=== PATIENT | male | born 2000 | race Caucasian/White ===

== ENCOUNTER 2023-01-09 16:41 | Outpatient (OUT) | payer OTHER, MEDICAID, SELFPAY ==
--- NOTE | 2023-01-09 | XR_ITS ---
The [address] [address] Patient Name: JARVIS STAHL MRN: [id number] date: 2000 Sex: M Assigned Patient Location: [facility] Current Patient Location: Accession/Order Number: [id number] Exam Date: 01/09/2023 17:12 Report Date: 01/11/2023 07:59 At the request of: MARGARITA NEWMAN Procedure: XR ribs LT min 3V w CXR1V EXAMINATION: XR ribs LT min 3V w CXR1V HISTORY: M94.0 ACUTE COSTOCHONDRITIS ; left anterior chest/rib pain, no known injury COMPARISON: No relevant comparison available. FINDINGS: LUNGS: Left apical pneumothorax 3.6 cm in thickness. Lungs are clear bilaterally. PLEURA: No pneumothorax, effusion, or pleural thickening. MEDIASTINUM: No visible mass or adenopathy. CARDIAC: No cardiomegaly or cardiac silhouette abnormality. RIBS: Normal. No significant arthropathy or acute abnormality. OTHER: Negative. XR/XR ribs LT min 3V w CXR1V IMPRESSION: 1. Moderate size left pneumothorax. 2. No pulmonary infiltrates. 3. Normal ribs. The ordering provider is being contacted at this time. Ordering provider's office is currently closed and not accepting messages. They will be contacted as soon as they are open this morning. Provider is being paged. Findings discussed with Dr. Rodriguez via telephone at 7:52 AM. Electronically authenticated by: IASBELLE PERKINS Date: 01/11/2023 07:59
== END 2023-01-09 16:42 | disposition home or self-care (01) ==
PROVIDERS: PCP Family Medicine; Visit Provider Nurse Practitioner Family
DX: M94.0 Chondrocostal junction syndrome [Tietze] (principal); J93.9 Pneumothorax, unspecified
CPT/HCPCS: 71101

== ENCOUNTER 2023-01-11 09:21 | Inpatient (IN) | payer OTHER, MEDICAID, SELFPAY ==
[2023-01-11] VITALS (88 sets, daily range): BP systolic 116–149; BP diastolic 75–97; PULSE 63–99; RESP 12–39; TEMP 36.4–36.9; O2SAT 95–100; BMI 18.3; BMI 19.6
--- NOTE | 2023-01-11 | XR_ITS ---
The [address] [address] Patient Name: JARVIS STAHL MRN: [id number] date: 2000 Sex: M Assigned Patient Location: ER Current Patient Location: ER Accession/Order Number: [id number] Exam Date: 01/11/2023 14:25 Report Date: 01/11/2023 14:51 At the request of: ROSALVA FROST Procedure: XR chest 2V XR chest 2V, 01/11/2023 2:25 PM EDT, [place]001 INDICATION: Post chest tube placement on left COMPARISON: CT of the chest from earlier on the same day. TECHNIQUE: Frontal and lateral views of the chest obtained. FINDINGS: The right costophrenic angle is excluded on the frontal view. There has been placement of left-sided chest tube with its tip extending to the lung apex. There is no evidence of significant residual pneumothorax. The heart is normal in size. The aorta and mediastinum appear unremarkable. The pulmonary vasculature is normal. The lungs are clear. No pleural effusion is seen. The osseous structures appear intact. XR/XR chest 2V IMPRESSION: No significant residual pneumothorax status post placement of left sided chest tube. No active pulmonary process identified. Electronically authenticated by: LESLIE WRIGHT Date: 01/11/2023 14:51
--- NOTE | 2023-01-11 09:42 | PC.NURSE ---
No shortness of breath noted. Chest equal rise.
--- NOTE | 2023-01-11 09:47 | CT_ITS ---
The [address] [address] Patient Name: JARVIS STAHL MRN: [id number] date: 2000 Sex: M Assigned Patient Location: ER Current Patient Location: Accession/Order Number: [id number] Exam Date: 01/11/2023 10:18 Report Date: 01/11/2023 10:58 At the request of: ROSALVA FROST Procedure: CT chest wo con EXAMINATION: CT chest wo con HISTORY: pneumo COMPARISON: XR RIBS left 01/09/2023 TECHNIQUE: Multi-planar CT images were obtained without and/or with IV contrast as indicated by examination type. Axial, Coronal, and Sagittal images. Dose reduction techniques were achieved by using automated exposure control and/or adjustment of mA and/or kV according to patient size and/or use of iterative reconstruction technique. FINDINGS: LUNGS: No visible pulmonary disease, blebs, or bulla. PLEURA: Moderate-large left pneumothorax. VASCULATURE: No abnormality. IMTIAZ: No mass or adenopathy. MEDIASTINUM: No mass or adenopathy. CARDIAC: No enlargement, pericardial thickening, or significant calcification. AORTA: No aneurysm or dissection. CHEST WALL: No mass or axillary adenopathy. BONES: No bone lesion or fracture. LIMITED ABDOMEN: No suspicious findings Limited images of the upper abdomen. OTHER: Negative. CT/CT chest wo con IMPRESSION: 1. Moderate-large left pneumothorax of uncertain etiology. No appreciable blebs or bulla. No rib fracture or appreciable disruption of the bronchi. 2. Allowing for differences in technique, no appreciable significant change compared to 01/09/2023. Electronically authenticated by: ISABELLE PERKINS Date: 01/11/2023 10:58
--- NOTE | 2023-01-11 11:46 | ED_ITS ---
HPI - General Adult General Chief complaint: Shortness of Breath/Dyspnea Stated complaint: ABNORMAL RADIOLOGY FINDINGS Time Seen by Provider: 01/11/23 09:38 Source: patient Mode of arrival: walk-in Limitations: no limitations History of Present Illness HPI narrative: Patient is a 22-year-old male who is presenting to the Emergency Room for an abnormal outpatient x-ray that was done Saturday. Patient's been having left-sided chest pain since Saturday. Patient had seen his nurse practitioner in the office on Saturday, a outpatient x-ray was ordered. Patient had an x-ray around 5:00 Saturday afternoon. It was red and evaluated this morning by Dr. Colon. He was noted the patient had a moderate pneumothorax, and the information was given to his PCP this morning. The x-ray report documented that they had attempted to contact the ordering provider's office but they were closed, not taking messages. It appears that Dr. Colon was able to speak to Dr. Rodriguez this AM. Patient was then sent into the Emergency Room for evaluation. Patient's had no fall, no traumas, no other acute findings. Patient does not smoke. Patient has underlying autism. Patient was a home with his parents. Patient is working currently. Patient has left- sided chest pain, feels slightly short of breath. Patient feels the same as he has a steady, does not feel worse or better. No bowel pain, nausea, vomiting, or any other acute complaints. Related Data Home Medications Medication Instructions Recorded Confirmed prednisone 20 mg tablet 20 mg PO DAILY 01/11/23 01/11/23 triamcinolone acetonide 0.1 % 1 applic topical PRN skin 01/11/23 topical ointment Allergies Allergy/AdvReac Type Severity Reaction Status Date / Time latex AdvReac Rash Verified 01/11/23 09:34 [facility] Social History Smoking status: Never smoker Exam Constitutional Vital Signs, click to edit/add: Last Vital Signs Temp 97.9 F 01/11/23 15:45 Pulse 70 01/11/23 15:45 Resp 14 01/11/23 11:50 BP 127/79 01/11/23 15:00 Pulse Ox 100 01/11/23 15:45 O2 Del Method Nasal Cannula 01/11/23 15:45 O2 Flow Rate 2 01/11/23 15:45 Course Vital Signs Vital signs: Vital Signs Temperature 98.4 F 01/11/23 09:29 Pulse Rate 85 01/11/23 09:29 Respiratory Rate 16 01/11/23 09:29 Blood Pressure 148/86 H 01/11/23 09:29 Pulse Oximetry 99 01/11/23 09:29 Oxygen Delivery Method Room Air 01/11/23 09:29 Temperature 97.9 F 01/11/23 15:45 Pulse Rate 70 01/11/23 15:45 Respiratory Rate 14 01/11/23 11:50 Blood Pressure 127/79 01/11/23 15:00 Pulse Oximetry 100 01/11/23 15:45 Oxygen Delivery Method Nasal Cannula 01/11/23 15:45 Oxygen Delivery Flow Rate 2 01/11/23 15:45 Medical Decision Making MDM Narrative Medical decision making narrative: TECHNIQUE: Multi-planar CT images were obtained without and/or with IV contrast as indicated by examination type. Axial, Coronal, and Sagittal images. Dose reduction techniques were achieved by using automated exposure control and/or adjustment of mA and/or kV according to patient size and/or use of iterative reconstruction technique. FINDINGS: LUNGS: No visible pulmonary disease, blebs, or bulla. PLEURA: Moderate-large left pneumothorax. VASCULATURE: No abnormality. IMTIAZ: No mass or adenopathy. MEDIASTINUM: No mass or adenopathy. CARDIAC: No enlargement, pericardial thickening, or significant calcification. AORTA: No aneurysm or dissection. CHEST WALL: No mass or axillary adenopathy. BONES: No bone lesion or fracture. LIMITED ABDOMEN: No suspicious findings Limited images of the upper abdomen. OTHER: Negative. IMPRESSION: 1. Moderate-large left pneumothorax of uncertain etiology. No appreciable blebs or bulla. No rib fracture or appreciable disruption of the bronchi. 2. Allowing for differences in technique, no appreciable significant change compared to 01/09/2023. I spoken to Dr. Arzola, he was requesting a smaller chest tube to be placed to water suction. He will be in consultation, patient be admitted to Dr. Zhao. 1200 patient case was discussed with Dr. hZao, he'll be admitted to the intensive care unit. There is delay in place in his chest tube secondary to the Emergency Room volume, a few critical patients, and also I am the only provider in the Emergency Room at this time. Patient, mother and father have been updated on delays. Patient's had the pneumothorax all week. He's 100 percent on, hemodynamically stable, was nothing for pain or anxiety at this time, he is resting comfortably reading a book. They understand the delays oor thankful for the updates. Procedure note: conscious sedation and placement of chest tube for left pneumothorax. procedure note. Conscious sedation. Risks of airway compromise, respiratory depression, hemodynamic compromise were discussed. Verbal and written consent were obtained for the procedure sedation by the patient and placed in the chart. Respiratory staff was at bedside, along with Nursing staff. Airway equipment and resuscitation equipment were at bedside as well. Patient is a Mallampati 1, ASA class II. Patient was placed on waveform capnography. IV fluids were running. The patient was placed on IV, O2, CO2, and monitor, and pulse ox. Risk and benefits of procedure were gone over, paperwork was signed. Patient is aware of the risk of , disability, possible new fracture, neurovascular compromise, bleeding, infection, pain, unable to reduce the dislocation, unforeseen complications, respiratory difficulty or distress, airway compromise. Patient was premedicated with 50 mg of IV fentanyl. Patient was then given 15mg of etomidate. Patient had no airway compromise, no respiratory distress, no respiratory concerns throughout the procedure. Procedure note: left chest tube placement 24 Bulgarian Patient was cleaned, prepped, draped in normal sterile fashion. Patient was anesthetized With 15 mL of a combination of 1 percent lidocaine and 0.5 percent bupivacaine. Aspiration was done well. Patient was anesthetized, no blood was aspirated. Patient had a local anesthetic block done above ribs approximate 5-6. Patient was premedicated initially with 50 ?g of fentanyl IV. Patient was then given 50 mg of etomidate IV befor incision. Patient had a 1.5 cm Incision made. Patient had blunt dissection done with hemostats. Above rib Approximate 5, patient had a small puncture made into the pleura cavity. There was a finger sweep done, no lung tissue or any other Tissue in the pleural cavity was Palpated. The 24 Bulgarian chest tube was placed in a superior inferior fashion. Patient had a phan of air, no blood. 0 silk was used for closure. Incision was closed along with 0 silk tied around the chest tube as well. Vasoline gauze, dry dressing was placed. This was connected to the Thora-Seal. There was a short delay and appropriately hooking up the Thora-SEal. Patient never had a oxygen level lower than 93 percent. The initial chest x-ray to check tube placement showed worsening of the pneumothorax slightly, after the Thora-Seal was working correctly, patient had excellent expansion of the left lung. Patient has successful placement of the chest tube. Patient's procedure was discussed with Dr. Arzola. Patient's procedure was discussed with mother and father, there are thankful for help. Patient is having pain to left lateral chest wall where the chest tube was placed. I wore 2 sets of gloves, gloves were intact the entire procedure and removed intact. Critical care time 35 minutes exclusive from separate billable procedures that were performed. The following was considered in the determination of critical care but not limited to the level of medical decision making, intensive cardiac and/or respiratory monitoring, frequent vital sign monitoring, evaluation of laboratory studies, evaluation of radiographic studies, oxygen monitoring, and constant monitoring and speaking to family at bedside Discharge Plan Discharge Chief Complaint: Shortness of Breath/Dyspnea Clinical Impression: Pneumothorax, left Patient Disposition: Admitted As Inpatient Condition: Fair
--- NOTE | 2023-01-11 12:56 | PC.NURSE ---
This RN received this pt from Mary TIERNEY. Pt has a left pneumothorax and is awaiting a chest tube placement. Room prepared for procedure. Pay waiting for additional medical staff to come in before he starts the procedure as pt is stable at this time .
[2023-01-11] MEDS: FENTANYL CITRATE/PF 100 MCG/2 ML VIAL 50 MCG IV ×2 (13:50→14:07)
[2023-01-11] MEDS: LIDOCAINE HCL 1% 100 MG/10 ML MDV INJ (13:55)
[2023-01-11] MEDS: BUPIVACAINE HCL 0.5% PF 50 MG/10 ML VIAL INJ (13:55)
[2023-01-11] MEDS: ETOMIDATE 20 MG/10 ML VIAL 15 MG IVP (14:05)
[2023-01-11] MEDS: WATER FOR IRRIGATION, STERILE 1,000 ML IRRIG.SOLN 1000 ML IRR (14:59)
[2023-01-11] MEDS: MORPHINE SULFATE 2 MG/ML SYRINGE IV ×2 (15:45→18:35)
[2023-01-11 17:52] LABS: Basophils Percent Auto 0.3 % (0.2-2.0); Eosinophils Absolute Auto 0.7 10^3/uL (0.0-0.7); Eosinophils Percent Auto 7.1 % (0.9-7.0); Hematocrit 41.5 % (42.0-54.0); Hemoglobin 14.2 g/dL (14.0-18.0); Immature Granulocytes Abs Auto 0.03 10^3/uL (0.00-0.03); Immature Granulocytes Pct Auto 0.3 % (0.0-0.5); Lymphocytes Absolute Auto 2.7 10^3/uL (1.2-3.8); Lymphocytes Percent Auto 29.8 % (20.5-60.0); Mean Corpuscular HGB Conc 34.2 g/dL (29.9-35.2); Mean Corpuscular Hemoglobin 30.9 pg (25.9-34.0); Mean Corpuscular Volume 90.4 fL (80.0-94.0); Mean Platelet Volume 11.3 fL (9.5-13.5); Monocytes Absolute Auto 0.7 10^3/uL (0.3-0.8); Monocytes Percent Auto 7.4 % (1.7-12.0); Neutrophils Percent Auto 55.1 % (43.0-75.0); Platelet Count 165 10^3/uL (150-450); Red Blood Count 4.59 10^6/uL (4.70-6.10); Red Cell Distribution Width 11.9 % (11.0-15.0); White Blood Count 9.1 10^3/uL (4.0-11.0)
[2023-01-11 18:07] LABS: Alanine Aminotransferase 40 U/L (16-63); Albumin Globulin Ratio 1.1; Albumin Level 3.6 g/dL (3.4-5.0); Alkaline Phosphatase 83 U/L (46-116); Anion Gap 11.1; Aspartate Amino Transferase 21 U/L (15-37); BUN Creatinine Ratio 15.3; Bilirubin Total 0.8 mg/dL (0.2-1.0); Calcium 8.5 mg/dL (8.5-10.1); Carbon Dioxide 30.5 mmol/L (21.0-32.0); Chloride 104 mmol/L (98-107); Estimated GFR (African America >60 (>=60); Estimated GFR (Non-African Ame >60 (>=60); Globulin 3.4 g/dL; Glucose 136 mg/dL (74-106); Potassium 3.6 mmol/L (3.5-5.1); Sodium 142 mmol/L (136-145)
[2023-01-11 18:08] LABS: INR 0.98; Prothrombin Time 10.4 sec (9.0-11.6)
[2023-01-11 18:19] LABS: Partial Thromboplastin Time 28.5 sec (22.3-36.2)
--- NOTE | 2023-01-11 19:30 | P.HP_ITS ---
H&P: HPI History of Present Illness Chief complaint: ABNORMAL RADIOLOGY FINDINGS, PNEUMOTHORAX Narrative: Status PCP as an outpatient for pleuritic type chest pain. Chest x-ray ordered 2 days prior to admission and found to have pneumothorax. Patient was notified that he was instructed to present to the emergency room. For work-up and treatment of same. Chest tube placed in ER, patient transferred to ICU. Review of Systems ROS Status of ROS 10 or more systems reviewed and unremarkable except as noted in history and below PFSH PFSH Family History Grandfather Family history of cancer Social History Smoking status: Never smoker Non-prescribed substance use: denies use Meds Home Medications and Allergies Home Medications Medication Instructions Recorded Confirmed Type No Known Home Medications 01/12/23 01/12/23 History Allergies Allergy/AdvReac Type Severity Reaction Status Date / Time latex AdvReac Rash Verified 01/11/23 09:34 Exam Constitutional Vital Signs, click to edit/add: Last Vital Signs Temp 98.3 F 01/12/23 07:39 Pulse 81 01/12/23 10:00 Resp 13 01/12/23 09:30 BP 123/87 01/12/23 07:01 Pulse Ox 98 01/12/23 03:32 O2 Del Method Room Air 01/11/23 19:45 O2 Flow Rate 2 01/11/23 15:55 Documenting provider has reviewed patient's vital signs: yes Common normals: no apparent distress Chest Common normals: inspection of chest abnormal (Tube in left side) Respiratory Common normals: normal respiratory effort and no retractions Cardio Common normals: regular rate, regular rhythm and no murmurs Back & Pelvis Common normals: thoracic and lumbar spine normal to inspection (Tube in left side of chest) and no thoracic nor lumbar tenderness Results Labs Labs: Short CBC 01/11/23 01/12/23 Range/Units 17:35 04:02 WBC 9.1 9.4 (4.0-11.0) 10^3/uL Hgb 14.2 14.4 (14.0-18.0) g/dL Hct 41.5 L 43.1 (42.0-54.0) % Plt Count 165 178 (150-450) 10^3/uL BMP 01/11/23 01/12/23 17:35 04:02 Sodium 142 137 Potassium 3.6 3.7 Chloride 104 101 Carbon Dioxide 30.5 31.7 BUN 11.0 9.0 Creatinine 0.72 0.73 Glucose 136 H 98 Calcium 8.5 8.8 Liver Function 01/11/23 01/12/23 Range/Units 17:35 04:02 Total Bilirubin 0.8 0.9 (0.2-1.0) mg/dL AST 21 11 L (15-37) U/L ALT 40 43 (16-63) U/L Alkaline Phosphatase 83 82 (46-116) U/L Albumin 3.6 3.7 (3.4-5.0) g/dL Assessment and Plan Assessment and Plan (1) Pneumothorax, left: (2) History of autism: Plan Respiratory distress, left-sided chest pain secondary to pneumothorax. Chest tube placed in ER. Managed by Dr. Chavez's History of autism-family staying with patient and seems comfortable with that No other significant medical problems in the past.
[2023-01-11] MEDS: HYDROCODONE/ACET 5-325 MG TABLET 1 TAB PO ×2 (20:02→23:52)
[2023-01-12] VITALS (159 sets, daily range): BP systolic 113–132; BP diastolic 68–87; PULSE 61–103; RESP 10–65; TEMP 36.4–36.8; O2SAT 97–100
[2023-01-12] MEDS: MORPHINE SULFATE 2 MG/ML SYRINGE IV (03:37)
[2023-01-12 04:19] LABS: Basophils Percent Auto 0.4 % (0.2-2.0); Eosinophils Absolute Auto 0.8 10^3/uL (0.0-0.7); Eosinophils Percent Auto 8.6 % (0.9-7.0); Hematocrit 43.1 % (42.0-54.0); Hemoglobin 14.4 g/dL (14.0-18.0); Immature Granulocytes Abs Auto 0.02 10^3/uL (0.00-0.03); Immature Granulocytes Pct Auto 0.2 % (0.0-0.5); Lymphocytes Absolute Auto 2.2 10^3/uL (1.2-3.8); Lymphocytes Percent Auto 23.1 % (20.5-60.0); Mean Corpuscular HGB Conc 33.4 g/dL (29.9-35.2); Mean Corpuscular Hemoglobin 30.7 pg (25.9-34.0); Mean Corpuscular Volume 91.9 fL (80.0-94.0); Mean Platelet Volume 10.8 fL (9.5-13.5); Monocytes Absolute Auto 0.8 10^3/uL (0.3-0.8); Monocytes Percent Auto 8.7 % (1.7-12.0); Neutrophils Absolute Auto 5.5 10^3/uL (1.4-6.5); Platelet Count 178 10^3/uL (150-450); Red Blood Count 4.69 10^6/uL (4.70-6.10); Red Cell Distribution Width 12.2 % (11.0-15.0); White Blood Count 9.4 10^3/uL (4.0-11.0)
[2023-01-12 04:35] LABS: Alanine Aminotransferase 43 U/L (16-63); Albumin Level 3.7 g/dL (3.4-5.0); Alkaline Phosphatase 82 U/L (46-116); Aspartate Amino Transferase 11 U/L (15-37); BUN Creatinine Ratio 12.3; Bilirubin Total 0.9 mg/dL (0.2-1.0); Calcium 8.8 mg/dL (8.5-10.1); Carbon Dioxide 31.7 mmol/L (21.0-32.0); Chloride 101 mmol/L (98-107); Estimated GFR (African America >60 (>=60); Estimated GFR (Non-African Ame >60 (>=60); Globulin 3.6 g/dL; Glucose 98 mg/dL (74-106); Potassium 3.7 mmol/L (3.5-5.1); Sodium 137 mmol/L (136-145); Total Protein 7.3 g/dL (6.4-8.2)
[2023-01-12] MEDS: HYDROCODONE/ACET 5-325 MG TABLET 1 TAB PO (05:24)
--- NOTE | 2023-01-12 06:00 | XR_ITS ---
[address] [address] Patient Name: JARVIS STAHL MRN: [id number] date: 2000 Sex: M Assigned Patient Location: ICU Current Patient Location: ICU Accession/Order Number: [id number] Exam Date: 01/12/2023 05:35 Report Date: 01/12/2023 09:10 At the request of: TALITA SUH Procedure: XR chest 1V EXAMINATION: CHEST RADIOGRAPH (PORTABLE SINGLE VIEW AP) Exam Date/Time: 01/12/2023 5:35 AM EDT Clinical History: pneumonthorax Comparison: 1 day prior RESULT: Lines, tubes, and devices: Stable left-sided chest tube Lungs and pleura: No focal consolidation. No pneumothorax. No pleural effusion. Cardiomediastinal silhouette: Stable cardiomediastinal silhouette. Other: No acute osseous process. XR/XR chest 1V IMPRESSION: Stable left-sided chest tube without residual pneumothorax. Electronically authenticated by: MARIA DE JESUS AUGUSTINE Date: 01/12/2023 09:10
--- NOTE | 2023-01-12 07:13 | PM.GSCN ---
History of Present Illness Consult details Consult date: 01/12/23 Reason for consult: chest tube Narrative: João Ghosh is a 22-year-old autistic male who resides at home with his mother and most of history is obtained from the mother. She is at the bedside this morning. I was called by the Emergency Department yesterday due to spontaneous pneumothorax after the patient went to his PCP on Saturday and had rib studies due to left-sided pain but the x-ray was not read until yesterday morning and then he was sent to the ED. ED physician placed a chest tube into the left chest as the patient had a hundred percent pneumothorax and the chest x-ray this morning shows that the lung is completely expanded. He has been on underwater seal and wall suction overnight. He did not sleep well according to the mother. He has no other medical problems. He goes to [employer] in his 2nd year. Review of Systems ROS Status of ROS 10 or more systems reviewed and unremarkable except as noted in history and below PFSH PFS Family History Grandfather Family history of cancer Social History Smoking status: Never smoker Non-prescribed substance use: denies use Meds Home Medications and Allergies Home Medications Medication Instructions Recorded Confirmed Type No Known Home Medications 01/12/23 01/12/23 History Allergies Allergy/AdvReac Type Severity Reaction Status Date / Time latex AdvReac Rash Verified 01/11/23 09:34 Exam Constitutional Vital Signs, click to edit/add: Last Vital Signs Temp 97.6 F 01/12/23 00:26 Pulse 88 01/12/23 06:11 Resp 23 01/12/23 03:50 BP 132/82 01/12/23 03:32 Pulse Ox 98 01/12/23 03:32 O2 Del Method Room Air 01/11/23 19:45 O2 Flow Rate 2 01/11/23 15:55 Documenting provider has reviewed patient's vital signs: yes Common normals: no apparent distress, oriented x3 and healthy appearing General appearance: cooperative, comfortable and well developed Orientation/consciousness: Yes awake, Yes oriented to person, Yes oriented to place and Yes oriented to time Chest Chest: abnormal inspection of the chest (chest tube exiting the left chest wall and to underwater seal) Respiratory Common normals: normal respiratory effort and clear to auscultation bilaterally Cardio Common normals: regular rate, regular rhythm and no murmurs Neuro Common normals: oriented x3 Results Labs Labs: Abnormal lab results 01/11/23 01/12/23 Range/Units 17:35 04:02 RBC 4.59 L 4.69 L (4.70-6.10) 10^6/uL Hct 41.5 L (42.0-54.0) % Eos % (Auto) 7.1 H 8.6 H (0.9-7.0) % Eos # (Auto) 0.8 H (0.0-0.7) 10^3/uL Glucose 136 H (74-106) mg/dL AST 11 L (15-37) U/L Diabetes panel 01/11/23 01/12/23 Range/Units 17:35 04:02 Sodium 142 137 (136-145) mmol/L Potassium 3.6 3.7 (3.5-5.1) mmol/L Chloride 104 101 (98-107) mmol/L Carbon Dioxide 30.5 31.7 (21.0-32.0) mmol/L BUN 11.0 9.0 (7.0-18.0) mg/dL Creatinine 0.72 0.73 (0.70-1.30) mg/dL Glucose 136 H 98 (74-106) mg/dL Calcium 8.5 8.8 (8.5-10.1) mg/dL AST 21 11 L (15-37) U/L ALT 40 43 (16-63) U/L Alkaline Phosphatase 83 82 (46-116) U/L Total Protein 7.0 7.3 (6.4-8.2) g/dL Albumin 3.6 3.7 (3.4-5.0) g/dL Calcium panel 01/11/23 01/12/23 Range/Units 17:35 04:02 Calcium 8.5 8.8 (8.5-10.1) mg/dL Albumin 3.6 3.7 (3.4-5.0) g/dL Pituitary panel 01/11/23 01/12/23 Range/Units 17:35 04:02 Sodium 142 137 (136-145) mmol/L Potassium 3.6 3.7 (3.5-5.1) mmol/L Chloride 104 101 (98-107) mmol/L Carbon Dioxide 30.5 31.7 (21.0-32.0) mmol/L BUN 11.0 9.0 (7.0-18.0) mg/dL Creatinine 0.72 0.73 (0.70-1.30) mg/dL Glucose 136 H 98 (74-106) mg/dL Calcium 8.5 8.8 (8.5-10.1) mg/dL Adrenal panel 01/11/23 01/12/23 Range/Units 17:35 04:02 Sodium 142 137 (136-145) mmol/L Potassium 3.6 3.7 (3.5-5.1) mmol/L Chloride 104 101 (98-107) mmol/L Carbon Dioxide 30.5 31.7 (21.0-32.0) mmol/L BUN 11.0 9.0 (7.0-18.0) mg/dL Creatinine 0.72 0.73 (0.70-1.30) mg/dL Glucose 136 H 98 (74-106) mg/dL Calcium 8.5 8.8 (8.5-10.1) mg/dL Total Bilirubin 0.8 0.9 (0.2-1.0) mg/dL AST 21 11 L (15-37) U/L ALT 40 43 (16-63) U/L Alkaline Phosphatase 83 82 (46-116) U/L Total Protein 7.0 7.3 (6.4-8.2) g/dL Albumin 3.6 3.7 (3.4-5.0) g/dL All other labs normal. Imaging Chest x-ray: report reviewed and image reviewed Assessment and Plan Assessment and Plan (1) Pneumothorax, left: (2) History of autism: Plan discontinue wall suction and continue chest tube to underwater seal and if becomes short of breath or dyspneic and obtain stat chest x-ray reconnect to wall suction; Patient and mother understand all of the above. Chest x-ray tomorrow morning. Will add nonsteroidal anti-inflammatory drugs for pain instead of narcotics.
--- NOTE | 2023-01-12 07:25 | PC.NURSE ---
L chest tube placed to water seal per dr frausto. very small amount of serosang drainage noted in tubing. no crepitus noted, no air leak.
[2023-01-12] MEDS: IBUPROFEN 400 MG TABLET 800 MG PO ×3 (08:02→22:34)
[2023-01-12] MEDS: ONDANSETRON PF 4 MG/2 ML VIAL IV ×2 (09:56→19:44)
--- NOTE | 2023-01-12 11:42 | P.PN_ITS ---
Progress Note: Subjective Subjective Interval history: Feels pretty good this morning. Some nausea. Exam Constitutional Vital Signs, click to edit/add: Last Vital Signs Temp 98.3 F 01/12/23 07:39 Pulse 81 01/12/23 10:00 Resp 13 01/12/23 09:30 BP 123/87 01/12/23 07:01 Pulse Ox 98 01/12/23 03:32 O2 Del Method Room Air 01/11/23 19:45 O2 Flow Rate 2 01/11/23 15:55 Documenting provider has reviewed patient's vital signs: yes Common normals: no apparent distress Chest Common normals: inspection of chest abnormal (Tube in left side) Respiratory Common normals: normal respiratory effort and no retractions Cardio Common normals: regular rate, regular rhythm and no murmurs Back & Pelvis Common normals: thoracic and lumbar spine normal to inspection (Tube in left side of chest) and no thoracic nor lumbar tenderness Progress Note: Objective Labs Labs: Short CBC 01/11/23 01/12/23 Range/Units 17:35 04:02 WBC 9.1 9.4 (4.0-11.0) 10^3/uL Hgb 14.2 14.4 (14.0-18.0) g/dL Hct 41.5 L 43.1 (42.0-54.0) % Plt Count 165 178 (150-450) 10^3/uL BMP 01/11/23 01/12/23 17:35 04:02 Sodium 142 137 Potassium 3.6 3.7 Chloride 104 101 Carbon Dioxide 30.5 31.7 BUN 11.0 9.0 Creatinine 0.72 0.73 Glucose 136 H 98 Calcium 8.5 8.8 Liver Function 01/11/23 01/12/23 Range/Units 17:35 04:02 Total Bilirubin 0.8 0.9 (0.2-1.0) mg/dL AST 21 11 L (15-37) U/L ALT 40 43 (16-63) U/L Alkaline Phosphatase 83 82 (46-116) U/L Albumin 3.6 3.7 (3.4-5.0) g/dL Progress Note: A&P Assessment and Plan (1) Pneumothorax, left: (2) History of autism: Plan Respiratory distress, left-sided chest pain secondary to pneumothorax. Chest tube placed in ER. Managed by Dr. Chavez's-some nausea this morning, patient on medication History of autism-family staying with patient and seems comfortable with that No other significant medical problems in the past. Addendum-was good this morning. Placed to waterseal. Started having increasing chest pain. Repeat chest x-ray shows reaccumulation of the pneumothorax. Case discussed with Dr. Arzola, back to chest tube with suction
--- NOTE | 2023-01-12 14:43 | XR_ITS ---
The [address] [address] Patient Name: JARVIS STAHL MRN: [id number] date: 2000 Sex: M Assigned Patient Location: ICU Current Patient Location: ICU Accession/Order Number: [id number] Exam Date: 01/12/2023 14:45 Report Date: 01/12/2023 15:26 At the request of: TALITA SUH Procedure: XR chest 1V EXAM: XR chest 1V HISTORY: R/O pneumothorax COMPARISON: Chest radiographs 01/12/2023 TECHNIQUE: AP radiograph of the chest. FINDINGS: The cardiac size is normal. No shift of the mediastinum. Left-sided thoracostomy tube is in place. The tip of this is at the left lung apex. A small amount of lucency is present medially along the mediastinum which appears similar to prior. Lucency also noted at the left hemidiaphragm in part secondary to the gaseous air bubble but also medial to this. Again demonstrated is elevation of the left hemidiaphragm although there is gaseous distention of the stomach. No right lung pneumothorax. No focal consolidation. No pleural effusion. XR/XR chest 1V IMPRESSION: 1. A small left pneumothorax is suggested medially and at the lung base. 2. Left thoracostomy tube in place. Electronically authenticated by: BING WILLARD Date: 01/12/2023 15:26
[2023-01-13] VITALS (128 sets, daily range): BP systolic 102–130; BP diastolic 60–80; PULSE 60–129; RESP 8–41; TEMP 36.3; O2SAT 93–100
[2023-01-13] MEDS: MORPHINE SULFATE 2 MG/ML SYRINGE IV ×3 (05:04→22:15)
--- NOTE | 2023-01-13 06:00 | XR_ITS ---
The [address] [address] Patient Name: JARVIS STAHL MRN: [id number] date: 2000 Sex: M Assigned Patient Location: ICU Current Patient Location: ICU Accession/Order Number: [id number] Exam Date: 01/13/2023 06:25 Report Date: 01/13/2023 08:31 At the request of: TALITA SUH Procedure: XR chest 1V EXAM: XR chest 1V HISTORY: Pneumothorax. COMPARISON: 01/12/2023 FINDINGS: There is a left-sided chest tube with its tip at the left lung apex. There is a poor inspiratory volume with crowding of the bronchovascular markings bilaterally. The heart is not significantly enlarged. There is prominence of the interstitial markings. No significant pleural fluid collection is observed. There is no evidence of a consolidated large infiltrate or significant residual pneumothorax detectable at this time. XR/XR chest 1V IMPRESSION: Left-sided chest tube with no significant residual pneumothorax detected. Electronically authenticated by: DAVID WALL Date: 01/13/2023 08:31
[2023-01-13] MEDS: IBUPROFEN 400 MG TABLET 800 MG PO ×2 (09:06→22:30)
--- NOTE | 2023-01-13 09:28 | PM.GSPN ---
Progress Note: A&P Assessment and Plan (1) Pneumothorax, left: (2) History of autism: Plan sutures from left chest tube and chest tube removed and Vaseline gauze with dressing placed over pneumothorax site on the left chest wall. Patient without discomfort or shortness of breath. Chest x-ray pending at noon. It goes home change dressing in 48-72 hours and daily until healed. Subjective Subjective Patient reports: no new complaints, feels better and pain is less Interval history: called yesterday by nursing due to painafter discontinuing wall suction in the morning and repeat chest x-ray showed possible mediastinal or lower pneumothorax. He has been wall suction all night and denies any complaints. Chest x-ray this morning shows left lung to be completely reexpanded; Therefore chest tube will be discontinued and chest x-ray to be taken at noon and if okay and no significant residual pneumothorax may discharge home or observe depending on those findings. If patient discharged will need to refrain from any lifting or straining for at least two weeks. Exam Constitutional Vital Signs, click to edit/add: Last Vital Signs Temp 97.4 F L 01/13/23 02:00 Pulse 69 01/13/23 08:00 Resp 19 01/13/23 02:20 BP 116/77 01/13/23 02:00 Pulse Ox 100 01/13/23 02:00 O2 Del Method Room Air 01/12/23 13:44 O2 Flow Rate 2 01/11/23 15:55 Respiratory Common normals: normal respiratory effort and clear to auscultation bilaterally
--- NOTE | 2023-01-13 10:25 | P.DS_ITS ---
DS: Providers Provider Date of admission: 01/11/23 14:56 Primary care physician: DEAN CHOWDHURY Consults: 01/11/23 17:59 Consult to General Surgeon Routine Consulting Provider: Isael Arzola Reason for consultation: pneumothorax Has provider been notified: Yes DS: Diagnosis Discharge Diagnosis (1) Pneumothorax, left: (2) History of autism: Plan Respiratory distress, left-sided chest pain secondary to pneumothorax. History of autism Borderline HTN - secondary to pain DS: Summary Hospital Course Hospital Course: Patient had an x-ray, 2 days prior to coming into the emergency room. Once notified he presented to the emergency room for left pneumothorax. Chest tube was placed in ER. Patient transferred to ICU. Chest tube to suction initially. Following day was changed to waterseal. Repeat chest x-ray later that day showed recurrence of the pneumothorax. And suction was reinstituted. This morning chest x-ray is normal. Chest tube was removed. If he remains without pneumothorax this afternoon, he can be discharged home in improving condition. Medications see list. Follow-up with PCP. Within the next week. Only other issue is some mild borderline hypertension but this was secondary to his pain. From his autism standpoint his family stayed with him and patient remained stable Status at Discharge Overall status at discharge: patient is back to baseline Time Spent with Patient Time attestation: Total time spent providing and/or coordinating discharge services: Exam Constitutional Vital Signs, click to edit/add: Last Vital Signs Temp 97.4 F L 01/13/23 02:00 Pulse 67 01/13/23 10:00 Resp 23 01/13/23 09:10 BP 119/74 01/13/23 09:47 Pulse Ox 97 01/13/23 09:47 O2 Del Method Room Air 01/12/23 13:44 O2 Flow Rate 2 01/11/23 15:55 Documenting provider has reviewed patient's vital signs: yes Common normals: no apparent distress Chest Common normals: inspection of chest normal Respiratory Common normals: normal respiratory effort and no retractions Cardio Common normals: regular rate, regular rhythm and no murmurs Back & Pelvis Common normals: thoracic and lumbar spine normal to inspection (Tube in left side of chest) and no thoracic nor lumbar tenderness Discharge Plan Discharge Disposition: Home, Self-Care Condition: Fair Discharge Medications: No Action No Known Home Medications Activity Detail: No heavy lifting or straining for 2 weeks. Patient Instructions: Spontaneous Pneumothorax (DC) Forms: Portal Instructions
--- NOTE | 2023-01-13 12:00 | XR_ITS ---
The [address] [address] Patient Name: JARVIS STAHL MRN: [id number] date: 2000 Sex: M Assigned Patient Location: ICU Current Patient Location: ICU Accession/Order Number: [id number] Exam Date: 01/13/2023 12:25 Report Date: 01/13/2023 13:23 At the request of: BLAINE BARRIENTOS Procedure: XR chest 1V EXAM: XR chest 1V HISTORY: S/P chest tube removal COMPARISON: 01/13/2023 TECHNIQUE: Chest X-ray AP, 1 view FINDINGS: Support devices: None. Lungs/pleura: Status post removal of the left chest tube. There is a large left pneumothorax which results in passive atelectasis of the left lower and lingula as well as upper lobe, representing tension pneumothorax. The right lung is clear. Heart and mediastinum: Normal contours. Bones: No acute abnormality identified. XR/XR chest 1V Impression: Left tension pneumothorax. Electronically authenticated by: ELLIOT BELLO Date: 01/13/2023 13:23
--- NOTE | 2023-01-13 14:02 | XR_ITS ---
The [address] [address] Patient Name: JARVIS STAHL MRN: [id number] date: 2000 Sex: M Assigned Patient Location: ICU Current Patient Location: ICU Accession/Order Number: [id number] Exam Date: 01/13/2023 14:10 Report Date: 01/13/2023 14:48 At the request of: PIERRE PEGUERO Procedure: XR chest 1V EXAM: XR chest 1V REASON FOR EXAM: Male, 22 years, post chest tube insertion. TECHNIQUE: A single AP view of the chest is performed. COMPARISON: 01/13/2023. FINDINGS: Cardiac monitoring leads overlie the chest. A new left pleural catheter has been placed with the tip directed at the left lung apex. There is patchy residual atelectasis within the left mid and lower lung. There is significant improvement to the appearance of the known left-sided pneumothorax. There is approximately 6 mm of separation between the visceral and parietal pleura. The right lung is clear. Normal size heart. The rightward mediastinal shift has resolved. Normal visualized pulmonary arteries. Normal visualized aortic arch and descending thoracic aorta. Normal visualized thoracic spine. Normal visualized ribs, clavicles, and shoulders. There is no demonstrated abnormality of the visualized soft tissue structures of the upper abdomen. XR/XR chest 1V IMPRESSION: Significant improvement to the left-sided pneumothorax status post small bore pleural catheter placement. Residual atelectasis is seen within the left mid and lower lung. Electronically authenticated by: ANDREEA JAQUEZ Date: 01/13/2023 14:48
--- NOTE | 2023-01-13 14:18 | PC.NURSE ---
1330- Dr Gallego at bedside to speak with patient and parents. Plan of Care explainwd. 1340-Parents exit. Time out performed 1343- Etomidate 5 mg IVP given 1346- Etomidate 5 mg IVP given. Patient nervous and tearful. Reassurance given. Continuous SPO2, NIBP, ECG monitor on 1347- Fentanyl 50 mg IVP given. 1353- Etomidate 5mg IVP administered. 1355-Dr Gallego inserts #9 chest tube into left lateral chest. Patient tolerates procedure with minimal discomfort. Tube connected to 20 cm suction. + air leak observed. 1400- No air leak observed. Dressing applied to chest tube site. Patient resting. Opens eyes when name called.
[2023-01-13] MEDS: ETOMIDATE 20 MG/10 ML VIAL 15 MG IVP (14:28)
[2023-01-13] MEDS: FENTANYL CITRATE/PF 100 MCG/2 ML VIAL IV (14:29)
--- NOTE | 2023-01-13 14:56 | ED_ITS ---
HPI - General Adult General Chief complaint: Shortness of Breath/Dyspnea Stated complaint: ABNORMAL RADIOLOGY FINDINGS Time Seen by Provider: 01/11/23 09:38 Source: patient Mode of arrival: walk-in Limitations: no limitations History of Present Illness HPI narrative: I was asked to see this patient in the intensive care unit because of pneumothorax. He had been diagnosed with a pneumothorax two days ago and a chest tube had been placed. It had been removed this morning but the pneumothorax returned. He had remained hemodynamically stable, not hypotensive and did not have any desaturations. Related Data Home Medications Medication Instructions Recorded Confirmed No Known Home Medications 01/12/23 01/12/23 Allergies Allergy/AdvReac Type Severity Reaction Status Date / Time latex AdvReac Rash Verified 01/11/23 09:34 PFSH PFSH Family History Grandfather Family history of cancer Social History Smoking status: Never smoker Non-prescribed substance use: denies use Exam Narrative Exam Narrative: upon arrival to the ICU the patient is awake and alert and is with his parents. Vital signs are essentially normal. Constitutional Vital Signs, click to edit/add: Last Vital Signs Temp 97.4 F L 01/13/23 13:00 Pulse 68 01/13/23 14:36 Resp 24 01/13/23 14:36 BP 116/73 01/13/23 14:30 Pulse Ox 94 L 01/13/23 14:36 O2 Del Method Room Air 01/13/23 13:00 O2 Flow Rate 2 01/13/23 13:00 Course Course Hospital Course: Patient had an x-ray, 2 days prior to coming into the emergency room. Once n otified he presented to the emergency room for left pneumothorax. Chest tube was placed in ER. Patient transferred to ICU. Chest tube to suction initially. Following day was changed to waterseal. Repeat chest x-ray later that day showed recurrence of the pneumothorax. And suction was reinstituted. This morning chest x-ray is normal. Chest tube was removed. If he remains without pneumothorax this afternoon, he can be discharged home in improving condition. Medications see list. Follow-up with PCP. Within the next week. Only other issue is some mild borderline hypertension but this was secondary to his pain. From his autism standpoint his family stayed with him and patient remained stable Vital Signs Vital signs: Vital Signs Temperature 98.4 F 01/11/23 09:29 Pulse Rate 85 01/11/23 09:29 Respiratory Rate 16 01/11/23 09:29 Blood Pressure 148/86 H 01/11/23 09:29 Pulse Oximetry 99 01/11/23 09:29 Oxygen Delivery Method Room Air 01/11/23 09:29 Temperature 97.4 F L 01/13/23 13:00 Pulse Rate 68 01/13/23 14:36 Respiratory Rate 24 01/13/23 14:36 Blood Pressure 116/73 01/13/23 14:30 Pulse Oximetry 94 L 01/13/23 14:36 Oxygen Delivery Method Room Air 01/13/23 13:00 Oxygen Delivery Flow Rate 2 01/13/23 13:00 Critical Care Time Critical Care Time Critical Care Time: Yes Total Critical Care Time: 45 Attestation: Due to the high probability of sudden and clinically significant deterioration in the patient's condition he/she required the highest level of my preparedness to intervene urgently I provided critical care time including documentation time, medication orders and management, reevaluation, vital sign assessment, ordering and reviewing of lab tests, ordering and reviewing of x-ray studies, and admission orders. Aggregate critical care time is 45 minutes including only time during which I was engaged in work directly related to his/her care and did not include time spent treating other patients simultaneously. Discharge Plan Discharge Chief Complaint: Shortness of Breath/Dyspnea Clinical Impression: Pneumothorax, left Patient Disposition: Admitted As Inpatient Condition: Fair Discharge Date/Time: 01/11/23 15:56 Procedures ED Procedure Instructions Procedures Procedures: The procedure was explained to both the patient and his parents give consent to proceed. The following procedure was performed by me. Nine [place] chest tube inserted into the left hemithorax for near complete pneumothorax. The patient was sedated with IV etomidate and fentanyl which resulted in an excellent level of sedation. The patient was monitored the entire time and had no desaturations. Local infiltration was carried out to the left chest wall just inferior to the incision that had been used for the previous chest tube. The area was prepped thoroughly and draped sterilely. Using a #11 blade a small incision was created. Then using curved hemostats the chest cavity was entered and phan of air occurred. Nine [place]i catheter was then inserted through this opening and placement was checked with ten mL syringe with 5 mL of saline in it and air was extracted. It was then secured with Vaseline gauze and numerous drain sponges and tape. It was hooked to suction with appropriate bubbling in the atrium. The tubing was secured in place. There were no complications. Postprocedure x-ray on my interpretation shows near complete inflation of the long with minimal apical pneumothorax remaining.
--- NOTE | 2023-01-13 17:11 | XR_ITS ---
The [address] [address] Patient Name: JARVIS STAHL MRN: [id number] date: 2000 Sex: M Assigned Patient Location: ICU Current Patient Location: ICU Accession/Order Number: [id number] Exam Date: 01/13/2023 17:28 Report Date: 01/13/2023 18:22 At the request of: TALITA SUH Procedure: XR chest 1V EXAM: XR chest 1V HISTORY: pneumo COMPARISON: Chest radiographs from 01/13/2023 TECHNIQUE: AP radiograph of the chest. FINDINGS: The patient is rotated. The left pneumothorax measuring approximately 0.8 cm previously measuring approximately 1.2 cm. Left small bore chest tube in place. Subsegmental atelectasis of the left lung. Elevation left hemidiaphragm. No pleural effusion. XR/XR chest 1V IMPRESSION: 1. Small left pneumothorax is again noted. 2. Left subsegmental atelectasis. 3. Left chest tube in place. Electronically authenticated by: BING WILLARD Date: 01/13/2023 18:22
[2023-01-13] MEDS: FENTANYL CITRATE/PF 100 MCG/2 ML VIAL 50 MCG IV (17:19)
[2023-01-13 17:36] LABS: Basophils Absolute Auto 0.1 10^3/uL (0.0-0.1); Basophils Percent Auto 0.5 % (0.2-2.0); Eosinophils Percent Auto 9.4 % (0.9-7.0); Hemoglobin 16.2 g/dL (14.0-18.0); Immature Granulocytes Abs Auto 0.02 10^3/uL (0.00-0.03); Immature Granulocytes Pct Auto 0.2 % (0.0-0.5); Lymphocytes Absolute Auto 2.4 10^3/uL (1.2-3.8); Lymphocytes Percent Auto 21.5 % (20.5-60.0); Mean Corpuscular HGB Conc 33.1 g/dL (29.9-35.2); Mean Corpuscular Hemoglobin 31.1 pg (25.9-34.0); Mean Platelet Volume 10.9 fL (9.5-13.5); Monocytes Absolute Auto 1.1 10^3/uL (0.3-0.8); Monocytes Percent Auto 9.8 % (1.7-12.0); Neutrophils Absolute Auto 6.5 10^3/uL (1.4-6.5); Neutrophils Percent Auto 58.6 % (43.0-75.0); Platelet Count 182 10^3/uL (150-450); Red Blood Count 5.21 10^6/uL (4.70-6.10); Red Cell Distribution Width 11.9 % (11.0-15.0)
[2023-01-13 17:46] LABS: INR 0.97; Partial Thromboplastin Time 29.6 sec (22.3-36.2); Prothrombin Time 10.3 sec (9.0-11.6)
[2023-01-13] MEDS: HYDROCODONE/ACET 5-325 MG TABLET 1 TAB PO (18:41)
[2023-01-13] MEDS: DIPHENHYDRAMINE HCL 50 MG/ML (1ML) VIAL 25 MG IV (22:19)
[2023-01-14] VITALS (97 sets, daily range): BP systolic 111–128; BP diastolic 69–82; PULSE 64–100; RESP 12–34; TEMP 36.8–37.3; O2SAT 66–100
[2023-01-14] MEDS: FENTANYL CITRATE/PF 100 MCG/2 ML VIAL 50 MCG IV (01:35)
[2023-01-14] MEDS: HYDROCODONE/ACET 5-325 MG TABLET 1 TAB PO ×3 (04:15→18:59)
--- NOTE | 2023-01-14 04:18 | PC.NURSE ---
Pt requesting ibuprofen for pain in chest (chest tube site) Mom and pt made aware that it is too early for next dose of Motrin. Pt medicated with [place] tab crushed in applesauce.
--- NOTE | 2023-01-14 06:00 | XR_ITS ---
The [address] [address] Patient Name: JARVIS STAHL MRN: [id number] date: 2000 Sex: M Assigned Patient Location: ICU Current Patient Location: ICU Accession/Order Number: [id number] Exam Date: 01/14/2023 05:08 Report Date: 01/14/2023 06:51 At the request of: TALITA SUH Procedure: XR chest 1V EXAMINATION: XR chest 1V HISTORY: pneumothorax COMPARISON: No relevant comparison available. FINDINGS: LUNGS: Elevated left hemidiaphragm with persistent mild left basilar atelectasis. VASCULATURE: No increased pulmonary vasculature. PLEURA: Small caliber left chest tube with tip near apex. Complete reexpansion of left lung; no pneumothorax or pleural effusion. CARDIAC: No cardiomegaly or cardiac silhouette abnormality. MEDIASTINUM: No visible mass or adenopathy. BONES: No fracture or visible bone lesion. OTHER: Negative. XR/XR chest 1V IMPRESSION: 1. Reexpansion of left lung; no residual pneumothorax. 2. Stable left chest tube. 3. Elevated left hemidiaphragm with stable mild left basilar atelectasis. Electronically authenticated by: ISABELLE PERKINS Date: 01/14/2023 06:51
--- NOTE | 2023-01-14 07:41 | P.PLPN_ITS ---
Progress Note: A&P Assessment and Plan (1) Primary spontaneous pneumothorax: Assessment and Plan: Left primary spontaneous pneumothorax. No blebs/bullae noted on CT chest. Thoracostomy tube removed yesterday with recurrence of pneumothorax, necessitating insertion of a different thoracostomy tube. Left lung has re- expanded at this time. Suction turned off - currently on water seal. Recheck CXR tomorrow. Patient counseled to inform nursing if dyspnea occurs or pain worsens. Will need alpha 1-antitrypsin screening outpatient. If pneumothorax is recurrent, will need transferred to tertiary care center for thoracic surgery intervention. Subjective Subjective Interval history: I was requested by Dr. Zhao to assume thoracostomy tube management yesterday. It was previously managed by general surgery and I verified with Dr. Zhao that they were made aware of the change. Chart was reviewed, including imaging reports, history from mother/patient, and discussed case with nursing. Patient currently has a small left thoracostomy tube on -[id number] suction. No air leak is evident. Patient placed on water seal and no air leak present either. CXR this AM shows resolution of pneumothorax. Patient has pleuritic and muscular pain associated with incision and thoracostomy tube - NSAIDs help better than opiates. He states pain is controlled for now. Difficult for him to take a deep breath. No family history of pneumothoraces. Grandfather had a renal tumor/cancer, but no other history to suggest Pvyk-Pgdk-Ynnb syndrome. No alpha 1-antitrypsin testing. No scuba diving or air plane rides recently. No known trauma. Exam Constitutional Vital Signs, click to edit/add: Last Vital Signs Temp 98.3 F 01/14/23 05:06 Pulse 70 01/14/23 06:00 Resp 28 H 01/14/23 05:06 BP 128/82 01/14/23 05:06 Pulse Ox 96 01/14/23 06:00 O2 Del Method Room Air 01/14/23 05:06 O2 Flow Rate 2 01/13/23 13:00 Documenting provider has reviewed patient's vital signs: yes Common normals: no apparent distress General appearance: cooperative Orientation/consciousness: Yes awake HENVA Common normals: normocephalic Mouth: oral and palatal mucosa normal Chest Other: Left small thoracostomy tube present. No subcutaneous air. Respiratory Other: Mildly diminished breath sounds on left compared to right, but both are clear to auscultation. Visibly in pain when attempting to take a deep breath. Cardio Rate: regular rate Rhythm: regular rhythm GI Inspection: normal to inspection Back & Pelvis Thoracic spine/upper back: normal to inspection Extremity Common normals: normal to inspection Neuro Common normals: oriented x3 Sensorium/orientation: awake and alert Psych Attitude: calm Activity/motor behavior: appropriate eye contact
[2023-01-14] MEDS: IBUPROFEN 400 MG TABLET 800 MG PO ×3 (07:47→23:31)
--- NOTE | 2023-01-14 10:33 | CM.NOTE ---
Rounds made with Dr. Faith, no discharge today. Chest tube to water seal. Dr. Thompson following pt at this time.
--- NOTE | 2023-01-14 10:46 | PM.PN ---
Progress Note: Subjective Subjective Interval history: Patient stable this am. Repeat x-ray shows resolution of pneumothorax and currently on water seal. Pulmonology now managing chest tube. No SOB or cough. Mild discomfort around tube but tolerable with medication. Normal appetite and no emesis or diarrhea. Afebrile. Exam Constitutional Vital Signs, click to edit/add: Last Vital Signs Temp 98.5 F 01/14/23 07:47 Pulse 80 01/14/23 08:00 Resp 28 H 01/14/23 05:06 BP 128/82 01/14/23 05:06 Pulse Ox 96 01/14/23 06:00 O2 Del Method Room Air 01/14/23 05:06 O2 Flow Rate 2 01/13/23 13:00 Documenting provider has reviewed patient's vital signs: yes Common normals: no apparent distress, oriented x3 and alert HENMT Common normals: normocephalic Eye Common normals: PERRL and EOMs intact bilaterally Respiratory Common normals: normal respiratory effort and clear to auscultation bilaterally Cardio Common normals: regular rate, regular rhythm, no gallops, no murmurs and no rub GI Common normals: Normal to inspection, nondistended, normoactive bowel sounds present and non-tender Extremity Common normals: no pedal edema Progress Note: Objective Labs Labs: Short CBC 01/13/23 Range/Units 17:25 WBC 11.0 (4.0-11.0) 10^3/uL Hgb 16.2 (14.0-18.0) g/dL Hct 49.0 (42.0-54.0) % Plt Count 182 (150-450) 10^3/uL Progress Note: A&P Assessment and Plan (1) Primary spontaneous pneumothorax: (2) Autism spectrum disorder: Plan Patient doing well and management of chest tube per pulmonology. Plan on repeat x-ray and if normal clamp tube in am. If pneumothorax returns will need transfer for CT surgery evaluation.
--- NOTE | 2023-01-14 15:20 | XR_ITS ---
The [place] [id number] Patient Name: JARVIS STAHL MRN: [id number] date: 2000 Sex: M Assigned Patient Location: ICU Current Patient Location: ICU Accession/Order Number: [id number] Exam Date: 01/14/2023 15:35 Report Date: 01/14/2023 16:07 At the request of: ALLI ZUÑIGA Procedure: XR chest 1V FRONTAL CHEST; 01/14/2023 3:35 PM EDT Clinical History:chest pain Comparison: Earlier same date . AP portable upright film. Again, small bore left-sided chest tube. Osseous structures are unchanged. No change cardiac and mediastinal silhouettes or bee. Again, discoid atelectasis towards left base. Again, left hemidiaphragm is elevated. No pleural effusion or failure. No distinct evidence of pleural edge to indicate pneumothorax. XR/XR chest 1V IMPRESSION: 1. No interval change. Electronically authenticated by: DAVID PENDLETON Date: 01/14/2023 16:07
[2023-01-14] MEDS: DIPHENHYDRAMINE HCL 50 MG/ML (1ML) VIAL 25 MG IV (22:11)
[2023-01-14] MEDS: BACITRACIN 0.9 GM PACKET 1 PACKET TOPICAL (22:12)
[2023-01-14] MEDS: MORPHINE SULFATE 2 MG/ML SYRINGE IV (22:13)
[2023-01-15] VITALS (72 sets, daily range): BP systolic 122–125; BP diastolic 78–85; PULSE 72–118; RESP 10–39; TEMP 36.9; O2SAT 82–100
--- NOTE | 2023-01-15 06:00 | XR_ITS ---
The [address] [address] Patient Name: JARVIS STAHL MRN: [id number] date: 2000 Sex: M Assigned Patient Location: ICU Current Patient Location: ICU Accession/Order Number: [id number] Exam Date: 01/15/2023 06:00 Report Date: 01/15/2023 08:05 At the request of: TALITA SUH Procedure: XR chest 1V EXAM: XR chest 1V HISTORY: pneumonthorax COMPARISON: 01/14/2023 TECHNIQUE: Portable FINDINGS: LUNGS: Stable small bore left chest tube projects over the medial left upper lung zone. Linear opacities left lung base, atelectasis is favored VASCULATURE: No increased pulmonary vasculature. PLEURA: No pneumothorax, effusion, or pleural thickening. Elevation of the left hemidiaphragm CARDIAC: No cardiomegaly or cardiac silhouette abnormality. MEDIASTINUM: No visible mass or adenopathy. BONES: No fracture or visible bone lesion. OTHER: Negative. XR/XR chest 1V IMPRESSION: No pneumothorax observed Electronically authenticated by: ALAINA MCCORMICK Date: 01/15/2023 08:05
--- NOTE | 2023-01-15 07:04 | P.PLPN_ITS ---
Progress Note: A&P Assessment and Plan (1) Primary spontaneous pneumothorax: Assessment and Plan: Left primary spontaneous pneumothorax. Thoracostomy tube successfully removed this AM after remaining on water seal ~24 hours. F/U CXR showed no re- development of pneumothorax. Patient was counseled on no heavy lifting for 2 weeks, no airplanes for 4 weeks, and that scuba diving is contraindicated. He may F/U with me in 1 week outpatient so that I may remove the suture. Additionally, will order alpha 1-antitrypsin testing (though chest CT did not show any bullae or blebs - I personally reviewed the imaging). Patient appears acceptable for discharge from a pulmonary perspective. Subjective Subjective Interval history: Patient voiced sharp pain yesterday afternoon - STAT CXR was ordered and returned unremarkable for any pneumothorax. Patient remained on water seal overnight without any issues. No air leak present. After discussing with patient and mother, I did not feel that clamping the thoracostomy tube at this point would make any significant difference opposed to having been on water seal. Decision was made to remove the chest tube. The patient was concerned about pain. I stated we can give the patient a dose of fentanyl. The mother asked if he could get anything stronger - I said fentanyl is typically the most potent opioid/opiate/narcotic we give outside of anesthesia. She asked about giving him something else, such as Valium, to make him sleepy. I replied that this is not an appropriate use of Valium for simply removing a thoracostomy tube. I took down the dressing/tape. Superior to the current thoracostomy tube was the incision of the previously placed thoracostomy tube. It was not approximating well and appeared flayed. Discussed with patient & mother about continuing to let it heal by secondary intension or I could place a simple suture to approximate it better. They voiced they would like a suture placed. The area was cleansed with ChloraPrep and Lidocaine 1% 10mL was injected on the sides of the incision. Using 3-0 silk, a single interrupted suture was placed, closely approximating the incision. Next, the remainder of the dressing was removed. During a breath exhalation maneuver, the current thoracostomy tube was removed without incident. Petroleum gauze was placed over the insertion site and was then dressed. A repeat CXR was ordered for noon. Report returned unremarkable for any recurrent pneumothorax after removal of the thoracostomy tube. Exam Constitutional Vital Signs, click to edit/add: Last Vital Signs Temp 98.4 F 01/15/23 02:00 Pulse 73 01/15/23 06:00 Resp 18 01/15/23 04:00 BP 122/85 01/15/23 02:00 Pulse Ox 98 01/15/23 04:00 O2 Del Method Room Air 01/15/23 02:00 O2 Flow Rate 2 01/13/23 13:00 Documenting provider has reviewed patient's vital signs: yes Common normals: no apparent distress General appearance: anxious Nutritional appearance: thin Orientation/consciousness: Yes awake HENMT Common normals: normocephalic Mouth: oral and palatal mucosa normal Chest Other: Left small thoracostomy tube. No subcutaneous air. No tenderness. Respiratory Common normals: normal respiratory effort Effort & inspection: symmetric chest movement Auscultation: clear to auscultation bilaterally Cardio Rate: regular rate Rhythm: regular rhythm GI Inspection: normal to inspection Extremity Common normals: normal to inspection Neuro Sensorium/orientation: awake and alert Psych Common normals: mental status grossly normal
[2023-01-15] MEDS: FENTANYL CITRATE/PF 100 MCG/2 ML VIAL 50 MCG IV (07:23)
[2023-01-15] MEDS: LIDOCAINE HCL 1% 100 MG/10 ML MDV INJ (07:50)
[2023-01-15] MEDS: IBUPROFEN 400 MG TABLET 800 MG PO (09:56)
[2023-01-15] MEDS: BACITRACIN 0.9 GM PACKET 1 PACKET TOPICAL (10:09)
--- NOTE | 2023-01-15 10:18 | CM.NOTE ---
Rounds made with Dr. Faith, Dr. Thompson discontinued chest tube this AM. Possible discharge this afternoon. No discharge needs identified.
--- NOTE | 2023-01-15 12:05 | XR_ITS ---
The [address] [address] Patient Name: JARVIS STAHL MRN: [id number] date: 2000 Sex: M Assigned Patient Location: ICU Current Patient Location: ICU Accession/Order Number: [id number] Exam Date: 01/15/2023 11:55 Report Date: 01/15/2023 13:08 At the request of: ALLI ZUÑIGA Procedure: XR chest 1V EXAM: XR chest 1V HISTORY: Pneumothorax - left thoracostomy tube removed COMPARISON: 01/15/2023 TECHNIQUE: AP upright portable chest x-ray FINDINGS: The left-sided chest tube has been removed without evidence of a pneumothorax. Atelectasis or infiltrate persist at the left lung base. The right lung is clear. There is no evidence of an effusion. The heart is not enlarged and the vasculature is not distended. The osseous structures are grossly intact. XR/XR chest 1V IMPRESSION: There is no evidence of a pneumothorax after removal of the left-sided chest tube. Opacity persist in the left lower lung compatible with atelectasis or infiltrate. There is no evidence of overt cardiac decompensation. Except for removal of the chest tube, the overall appearance is unchanged. Electronically authenticated by: BEST LUGO Date: 01/15/2023 13:08
--- NOTE | 2023-01-15 13:49 | PM.DS1 ---
DS: Providers Provider Date of admission: 01/11/23 14:56 Primary care physician: DEAN CHOWDHURY Consults: 01/11/23 17:59 Consult to General Surgeon Routine Consulting Provider: Isael Arzola Reason for consultation: pneumothorax Has provider been notified: Yes 01/13/23 15:03 Consult to Pulmonology Routine Consulting Provider: Messi Thompson Reason for consultation: Pneumonthorax Has provider been notified: Yes DS: Diagnosis Discharge Diagnosis (1) Primary spontaneous pneumothorax: (2) Autism spectrum disorder: DS: Summary Hospital Course Hospital Course: Reason for admission: See ER note and H&P for detail. 22 y/o male to ER with SOB. Patient had an x-ray, 2 days prior and once notified he presented to the emergency room for left pneumothorax. Chest tube was placed in ER. Patient transferred to ICU. Chest tube to suction initially. Following day was changed to waterseal. Repeat chest x-ray later that day showed recurrence of the pneumothorax. And suction was reinstituted. Next morning chest x-ray is normal. Chest tube was removed. Developed SOB and repeat x-ray showed pneumothorax. ER placed tube. Pulmonology consulted for management. Tube to suction and x-ray normal. Tube to waterseal overnight and repeat imaging normal. Next am x-ray remained normal and tube removed. [place] well and no SOB. Repeat x-ray normal. Discharged home in stable condition. F/u with pulmonology in 1 week. Time Spent with Patient Time attestation: Total time spent providing and/or coordinating discharge services: Exam Constitutional Vital Signs, click to edit/add: Last Vital Signs Temp 98.4 F 01/15/23 02:00 Pulse 107 H 01/15/23 12:10 Resp 24 01/15/23 12:10 BP 125/78 01/15/23 07:11 Pulse Ox 98 01/15/23 11:40 O2 Del Method Room Air 01/15/23 02:00 O2 Flow Rate 2 01/13/23 13:00 Documenting provider has reviewed patient's vital signs: yes Common normals: no apparent distress, oriented x3 and alert HENMT Common normals: normocephalic Eye Common normals: PERRL and EOMs intact bilaterally Respiratory Common normals: normal respiratory effort and clear to auscultation bilaterally Cardio Common normals: regular rate, regular rhythm, no gallops, no murmurs and no rub GI Common normals: Normal to inspection, nondistended, normoactive bowel sounds present and non-tender Extremity Common normals: no pedal edema Discharge Plan Discharge Disposition: Home, Self-Care Condition: Fair Discharge Medications: Continued No Known Home Medications Activity: resume usual activities as tolerated Activity Detail: No heavy lifting or straining for 2 weeks. Diet: advance to your usual diet Patient Instructions: Spontaneous Pneumothorax (DC) Forms: Portal Instructions Follow Up Appointments: Follow up with Dr. Thompson 01/23/23 10am
--- NOTE | 2023-01-18 15:04 | CM.DCFOLLOWU ---
Person spoke with: patient's mother How are you feeling? he is doing well How is your pain? none Did you understand your discharge instructions? yes Do you have any questions about your discharge instructions? had questions in regards to wound care Were you given any prescriptions at discharge? no Were you able to get your prescriptions filled? N/A Do you understand how to take your medications as ordered? yes Do you have any questions about your follow up appointment and do you plan to keep your follow up appointment? no questions, follow up with Dr. Thompson on 01/23/23 Is there anything else that you would like to discuss? Pt's mother calling ICU in regards to how often to change the bandage from the incision site Questions/Comments/Concerns/Other:
== END 2023-01-15 14:03 | disposition home or self-care (01) | DRG 200 ==
LOC: ER 11:57 → ICU 15:10
PROVIDERS: Family Medicine; Nurse Practitioner; Admitting Provider Family Medicine; Emergency Provider Emergency Medicine; PCP Family Medicine; Visit Provider Family Medicine
DX: J93.11 Primary spontaneous pneumothorax (principal); F84.0 Autistic disorder; R07.9 Chest pain, unspecified; R06.03 Acute respiratory distress; Z91.040 Latex allergy status; Z79.899 Other long term (current) drug therapy; Z80.51 Family history of malignant neoplasm of kidney
CPT/HCPCS: 36415; 71045; 71046; 71250; 80053; 85025; 85610; 85730; 96374; 96375; 96376; 99285

== ENCOUNTER 2023-01-23 10:41 | Outpatient (OUT) | payer OTHER, MEDICAID, SELFPAY ==
--- NOTE | 2023-01-23 11:02 | XR_ITS ---
[address] [address] Patient Name: JARVIS STAHL MRN: [id number] date: 2000 Sex: M Assigned Patient Location: RAD Current Patient Location: RAD Accession/Order Number: [id number] Exam Date: 01/23/2023 10:55 Report Date: 01/23/2023 11:10 At the request of: ALLI ZUÑIGA Procedure: XR chest 2V EXAMINATION: XR chest 2V HISTORY: Pneumothorax J93.11 follow-up COMPARISON: XR chest 01/15/2023, 01/09/2023 FINDINGS: LUNGS: No significant pulmonary parenchymal abnormalities. VASCULATURE: No increased pulmonary vasculature. PLEURA: No pneumothorax, effusion, or pleural thickening. CARDIAC: No cardiomegaly or cardiac silhouette abnormality. MEDIASTINUM: No visible mass or adenopathy. BONES: No fracture or visible bone lesion. OTHER: Negative. XR/XR chest 2V IMPRESSION: 1. Complete reexpansion of left lung; no residual or recurrent pneumothorax. 2. No acute infiltrates or suspicious findings. Electronically authenticated by: ISABELLE PERKINS Date: 01/23/2023 11:10
== END 2023-01-23 10:42 | disposition home or self-care (01) ==
LOC: RAD 10:42
PROVIDERS: PCP Family Medicine; Visit Provider Internal Medicine
DX: J93.11 Primary spontaneous pneumothorax (principal)
CPT/HCPCS: 71046

== ENCOUNTER 2023-02-06 00:34 | Emergency (ER) | payer OTHER, MEDICAID, SELFPAY ==
[2023-02-06] VITALS (82 sets, daily range): BP systolic 116–131; BP diastolic 72–92; PULSE 56–123; RESP 12–21; TEMP 36.7; O2SAT 95–100; BMI 18.3
--- NOTE | 2023-02-06 00:52 | ECG_ITS ---
The [facility] Test Date: 2023-02-06 Pat Name: JARVIS STAHL Department: Room: - Gender: Male [employer] Vice [employer]: : 2000 Requested By: DEAN CHOWDHURY Order Number: [id number] Reading MD: TALITA SUH Measurements Intervals [place] Rate: 78 P: 49 ND: 140 QRS: 84 QRSD: 102 T: 67 QT: 396 QTc: 429 Interpretive Statements 1100 Sinus rhythm 1102 Sinus arrhythmia 9110 normal ECG No previous ECG available for comparison Electronically Signed On 02-07-2023 7:17:16 EST by TALITA SUH
--- NOTE | 2023-02-06 00:57 | ED.CHESTPAI1 ---
HPI - Chest Pain General Chief Complaint: Chest Pain Stated Complaint: CHEST PAIN Time Seen by Provider: 02/06/23 00:51 History of Present Illness HPI narrative: patient has past history of spontaneous pneumothorax. Admitted here 01/11/23 for pneumothorax. States tonight he is experiencing a clicking sound in his chest reminiscent to how he felt last time he had the pneumothorax. He is not short of breath. No pain or nausea or fever Related Data Home Medications Medication Instructions Recorded Confirmed No Known Home Medications 01/12/23 02/06/23 Allergies Allergy/AdvReac Type Severity Reaction Status Date / Time latex AdvReac Rash Verified 02/06/23 00:47 Review of Systems ROS Status of ROS 10 or more systems reviewed and unremarkable except as noted in history and below [facility] Medical History (Updated 02/06/23 @ 05:49 by Jonas Knott MD) Autism spectrum disorder ?F84.0 - Autistic disorder (ICD-10) History of autism ?Z86.59 - Personal history of other mental and behavioral disorders (ICD-10) Pneumothorax, left ?J93.9 - Pneumothorax, unspecified (ICD-10) Family History Grandfather Family history of cancer Social History Smoking status: Never smoker Non-prescribed substance use: denies use Exam Constitutional Vital Signs, click to edit/add: Last Vital Signs Temp 98.1 F 02/06/23 00:45 Pulse 71 02/06/23 05:50 Resp 15 02/06/23 05:50 BP 124/72 02/06/23 05:50 Pulse Ox 98 02/06/23 06:00 O2 Del Method Room Air 02/06/23 00:45 Common normals: no apparent distress, average body habitus, oriented x3, no limitations, healthy appearing, alert and well nourished Eye Common normals: EOMs intact bilaterally and conjunctivae normal Respiratory Common normals: normal respiratory effort and no retractions Other: fine crackles left chest. No crepitus Cardio Common normals: regular rate, regular rhythm, S1 normal heart sound and S2 normal heart sound GI Common normals: Normal to inspection, nondistended, normoactive bowel sounds present, soft to palpation and non-tender Extremity Common normals: normal to inspection and full ROM Neuro Common normals: CN's II-XII intact bilaterally, moves all extremities, no focal motor deficits and no sensory deficits noted Course Vital Signs Vital signs: Vital Signs Temperature 98.1 F 02/06/23 00:45 Pulse Rate 71 02/06/23 00:45 Respiratory Rate 16 02/06/23 00:45 Blood Pressure 131/92 H 02/06/23 00:45 Pulse Oximetry 100 02/06/23 00:45 Oxygen Delivery Method Room Air 02/06/23 00:45 Temperature 98.1 F 02/06/23 00:45 Pulse Rate 71 02/06/23 05:50 Respiratory Rate 15 02/06/23 05:50 Blood Pressure 124/72 02/06/23 05:50 Pulse Oximetry 98 02/06/23 06:00 Oxygen Delivery Method Room Air 02/06/23 00:45 MDM - Chest Pain MDM Narrative Medical decision making narrative: Patient presents with complaint of crackling sound in his chest. States he experienced similar sensation in his chest last month and was found to have a pneumothorax. workup tonight demonstrates 10% pneumothorax. Patient remains asymptomatic. We do not have Pulmonary available at this facility and will need to transfer the patient. Discussed with hospitalist at [facility] and patient is accepted in transfer Lab Data Labs: Lab Results 02/06/23 02/06/23 Range/Units 01:04 05:55 WBC 9.6 (4.0-11.0) 10^3/uL RBC 4.84 (4.70-6.10) 10^6/uL Hgb 15.1 (14.0-18.0) g/dL Hct 44.7 (42.0-54.0) % MCV 92.4 (80.0-94.0) fL MCH 31.2 (25.9-34.0) pg MCHC 33.8 (29.9-35.2) g/dL RDW 12.1 (11.0-15.0) % Plt Count 248 (150-450) 10^3/uL MPV 11.2 (9.5-13.5) fL Neut % (Auto) 42.2 L (43.0-75.0) % Lymph % (Auto) 39.3 (20.5-60.0) % [place] % (Auto) 8.2 (1.7-12.0) % Eos % (Auto) 9.4 H (0.9-7.0) % Baso % (Auto) 0.7 (0.2-2.0) % Neut # (Auto) 4.0 (1.4-6.5) 10^3/uL Lymph # (Auto) 3.8 (1.2-3.8) 10^3/uL [place] # (Auto) 0.8 (0.3-0.8) 10^3/uL Eos # (Auto) 0.9 H (0.0-0.7) 10^3/uL Baso # (Auto) 0.1 (0.0-0.1) 10^3/uL Abs Immat Gran (auto) 0.02 (0.00-0.03) 10^3/uL Imm/Tot Granulo (auto) 0.2 (0.0-0.5) % Sodium 138 (136-145) mmol/L Potassium 4.1 (3.5-5.1) mmol/L Chloride 101 (98-107) mmol/L Carbon Dioxide 28.3 (21.0-32.0) mmol/L Anion Gap 12.8 BUN 11.0 (7.0-18.0) mg/dL Creatinine 0.72 (0.70-1.30) mg/dL Est GFR ( Amer) >60 (>=60) Est GFR (Non-Af Amer) >60 (>=60) BUN/Creatinine Ratio 15.3 Glucose 96 (74-106) mg/dL Calcium 9.4 (8.5-10.1) mg/dL SARS-CoV-2 (PCR) Negative (NEGATIVE) Imaging Data CT scan - chest: Radiologist's impression: SABINO KNOTT Procedure: CT chest wo con EXAM: CT chest wo con HISTORY: Left-sided chest pain. Left pneumothorax. COMPARISON: Chest x-ray 02/06/2023, CT chest 01/11/2023 TECHNIQUE: Multiple axial views CT chest without IV contrast. Coronal sagittal reformats. FINDINGS: Small left pneumothorax occupying 10% of the left hemithorax with left upper pleural separation of 1.6 cm and left anterior basilar pleural separation of 1.4 cm. No overt mediastinal shift. Central airway is patent. Cardiac mediastinum is unremarkable by noncontrast exam. Visualized portions of the upper abdomen are without acute abnormality. No acute bony abnormality. CT/CT chest wo con IMPRESSION: Small left pneumothorax occupying 10% of the left hemithorax with left upper pleural separation of 1.6 cm and left anterior basilar pleural separation of 1.4 cm. This important critical finding communicated to and acknowledged by Dr. Jonas Knott at 5:24 AM eastern time 02/06/2023 by phone. The phone call verbal communication was made by Dr. David Sanz. Electronically authenticated by: DAVID SANZ Date: 02/06/2023 05:24 Dictated By: David Sanz M.D. Signed By: 02/06/23526 DD/ 3 TD/TT: Discharge Plan Discharge Chief Complaint: Chest Pain Clinical Impression: Recurrent spontaneous pneumothorax Patient Disposition: On License Of [facility] Discharge Location: The [facility]
--- NOTE | 2023-02-06 01:24 | XR_ITS ---
The [address] [address] Patient Name: JARVIS STAHL MRN: [id number] date: 2000 Sex: M Assigned Patient Location: ER Current Patient Location: ED.MAIN Accession/Order Number: [id number] Exam Date: 02/06/2023 01:49 Report Date: 02/06/2023 04:16 At the request of: CATRINA JULIAN Procedure: XR chest 2V EXAM: XR chest 2V HISTORY: Chest pain. COMPARISON: 01/23/2023. TECHNIQUE: PA and lateral views of the chest performed. FINDINGS: The trachea is unremarkable. The heart size is within normal limits. The cardiomediastinal silhouette and the hilar shadows are unremarkable. The lung volumes are normal. The lung rosa are clear. There is no pneumothorax. There is stable slight dextroscoliosis of the thoracic spine. XR/XR chest 2V IMPRESSION: There is no acute cardiopulmonary process. Electronically authenticated by: BEST MUELLER Date: 02/06/2023 04:16
[2023-02-06 01:40] LABS: Basophils Absolute Auto 0.1 10^3/uL (0.0-0.1); Basophils Percent Auto 0.7 % (0.2-2.0); Eosinophils Absolute Auto 0.9 10^3/uL (0.0-0.7); Eosinophils Percent Auto 9.4 % (0.9-7.0); Hematocrit 44.7 % (42.0-54.0); Hemoglobin 15.1 g/dL (14.0-18.0); Immature Granulocytes Abs Auto 0.02 10^3/uL (0.00-0.03); Immature Granulocytes Pct Auto 0.2 % (0.0-0.5); Lymphocytes Absolute Auto 3.8 10^3/uL (1.2-3.8); Lymphocytes Percent Auto 39.3 % (20.5-60.0); Mean Corpuscular HGB Conc 33.8 g/dL (29.9-35.2); Mean Corpuscular Hemoglobin 31.2 pg (25.9-34.0); Mean Corpuscular Volume 92.4 fL (80.0-94.0); Mean Platelet Volume 11.2 fL (9.5-13.5); Monocytes Absolute Auto 0.8 10^3/uL (0.3-0.8); Monocytes Percent Auto 8.2 % (1.7-12.0); Neutrophils Percent Auto 42.2 % (43.0-75.0); Platelet Count 248 10^3/uL (150-450); Red Blood Count 4.84 10^6/uL (4.70-6.10); Red Cell Distribution Width 12.1 % (11.0-15.0); White Blood Count 9.6 10^3/uL (4.0-11.0)
--- NOTE | 2023-02-06 01:40 | PC.NURSE ---
patient c/o left sided chest pain. states he has been experiencing intermittent chest pressure and it made him nervous. that last time he had chest pressure it was a spontaneous pneumothorax. patient states he feeling a clicking coming chest. bilateral clear lung sounds at this time heard by two nurses. no crepitus felt. denies pain with inspiration. states he has 0/10 pain at this time. patient at bedside with mother. sitting comfortably in bed. denies needs
[2023-02-06 01:48] LABS: Anion Gap 12.8; BUN Creatinine Ratio 15.3; Calcium 9.4 mg/dL (8.5-10.1); Carbon Dioxide 28.3 mmol/L (21.0-32.0); Chloride 101 mmol/L (98-107); Estimated GFR (African America >60 (>=60); Estimated GFR (Non-African Ame >60 (>=60); Glucose 96 mg/dL (74-106); Potassium 4.1 mmol/L (3.5-5.1); Sodium 138 mmol/L (136-145)
--- NOTE | 2023-02-06 04:27 | CT_ITS ---
The [address] [address] Patient Name: JARVIS STAHL MRN: [id number] date: 2000 Sex: M Assigned Patient Location: ER Current Patient Location: ER Accession/Order Number: [id number] Exam Date: 02/06/2023 04:38 Report Date: 02/06/2023 05:24 At the request of: JONAS KNOTT Procedure: CT chest wo con EXAM: CT chest wo con HISTORY: Left-sided chest pain. Left pneumothorax. COMPARISON: Chest x-ray 02/06/2023, CT chest 01/11/2023 TECHNIQUE: Multiple axial views CT chest without IV contrast. Coronal sagittal reformats. FINDINGS: Small left pneumothorax occupying 10% of the left hemithorax with left upper pleural separation of 1.6 cm and left anterior basilar pleural separation of 1.4 cm. No overt mediastinal shift. Central airway is patent. Cardiac mediastinum is unremarkable by noncontrast exam. Visualized portions of the upper abdomen are without acute abnormality. No acute bony abnormality. CT/CT chest wo con IMPRESSION: Small left pneumothorax occupying 10% of the left hemithorax with left upper pleural separation of 1.6 cm and left anterior basilar pleural separation of 1.4 cm. This important critical finding communicated to and acknowledged by Dr. Jonas Knott at 5:24 AM eastern time 02/06/2023 by phone. The phone call verbal communication was made by Dr. David Sanz. Electronically authenticated by: DAVID SANZ Date: 02/06/2023 05:24
[2023-02-06 06:11] LABS: SARS-CoV-2 Ag NEGATIVE (NEGATIVE)
--- NOTE | 2023-02-06 07:29 | PC.NURSE ---
SUPPLEMENTAL O2 PLACED ON PATIENT PER PHYSICIAN REQUEST
[2023-02-06] MEDS: MORPHINE SULFATE 4 MG/ML VIAL IV (14:49)
[2023-02-07 13:11] LABS: SARS-CoV-2 NAA NOT DETECTED (NOT DETECTE)
== END 2023-02-06 15:52 | disposition short-term general hospital (02) ==
PROVIDERS: Emergency Provider Internal Medicine; PCP Family Medicine
DX: J93.83 Other pneumothorax (principal); F84.0 Autistic disorder; Z20.822 Contact with and (suspected) exposure to COVID-19
CPT/HCPCS: 36415; 71046; 71250; 80048; 85025; 87635; 87811; 93005; 96374; 99285

== ENCOUNTER 2023-02-19 08:17 | Outpatient (OUT) | payer OTHER, MEDICAID, SELFPAY ==
--- NOTE | 2023-02-19 08:24 | XR_ITS ---
The [address] [address] Patient Name: JARVIS STAHL MRN: [id number] date: 2000 Sex: M Assigned Patient Location: RAD Current Patient Location: [facility] Accession/Order Number: [id number] Exam Date: 02/19/2023 08:28 Report Date: 02/19/2023 08:53 At the request of: ALLI ZUÑIGA Procedure: XR chest 2V EXAM: XR chest 2V HISTORY: Primary Spontaneous Pneumothorax J93.11 COMPARISON: Chest study dated 02/08/2023 TECHNIQUE: PA and lateral views of the chest were obtained. FINDINGS: Heart and mediastinal contours are unremarkable in appearance. No acute infiltrate or consolidations are seen. No obvious pneumothorax. Slight convexity of the dorsal spine to the right. XR/XR chest 2V IMPRESSION: No acute process seen in the chest. Electronically authenticated by: DEVANTE MONTERO Date: 02/19/2023 08:53
== END 2023-02-19 08:18 | disposition home or self-care (01) ==
PROVIDERS: PCP Family Medicine; Visit Provider Internal Medicine
DX: J93.11 Primary spontaneous pneumothorax (principal)
CPT/HCPCS: 71046

== ENCOUNTER 2023-05-20 15:45 | Outpatient (OUT) | payer OTHER, MEDICAID, SELFPAY ==
--- NOTE | 2023-05-20 | XR_ITS ---
The [address] [address] Patient Name: JARVIS STAHL MRN: [id number] date: 2000 Sex: M Assigned Patient Location: RAD Current Patient Location: RAD Accession/Order Number: [id number] Exam Date: 05/20/2023 15:58 Report Date: 05/20/2023 16:18 At the request of: ALLI ZUÑIGA Procedure: XR chest 2V EXAM: XR chest 2V HISTORY: J93.11; Primary spontaneous pneumothorax . Follow-up study. COMPARISON: 02/19/2023 TECHNIQUE: Upright PA and lateral chest x-ray FINDINGS: The heart is not enlarged and the vasculature is not distended. No acute infiltrate, effusion or pneumothorax is identified. The osseous structures are grossly intact. XR/XR chest 2V IMPRESSION: No acute infiltrate or evidence of cardiac decompensation. The overall appearance of the chest is essentially unchanged. Electronically authenticated by: BEST LUGO Date: 05/20/2023 16:18
--- OUTSIDE RECORDS SUMMARY | 2023-05-20 15:56 | XMS_ITS | CCD ---
Author Name Unknown Address [address] [facility] [address] [place] [id number] Organization [facility] Care Team Providers Care Leveler Helper Name Role Phone DEYSI LOONEY Admitting Unavailable DEYSI LOONEY Attending Unavailable VÍCTOR COLEMAN Primary Care Unavailable DEYSI LOONEY Consulting Unavailable BRADEN COLON Consulting Unavailable MILLIS CHRISTOPHER Admitting Unavailable MILLISVAHIDY Attending Unavailable MILLIS, CHRISTOPHER Consulting Unavailable ZIEBBRADEN ROBBINS Consulting Unavailable KIMBERLY, BOOGIE Referring Unavailable CATRINA JULIAN Referring Unavailable KIMBERLY, BOOGIE Attending Unavailable KIMBERLY, BOOGIE Admitting Unavailable EDEN CONNERHAN Referring Unavailable KIMBERLY, BOOGIE Referring Unavailable KIMBERLY, BOOGIE Referring Unavailable KIMBERLY, BOOGIE Referring Unavailable Thai Rodriguez DO Primary Care Provider [phone] Allergies Allergy Classification Reported Allergen(s) Allergy Type Date of Onset Reaction(s) Facility (1 source) ALLERGIES NOT ON FILE; Translations: [ALLERGIES NOT ON FILE] Propensity to adverse reactions (disorder) [facility] Repository Medications Current Medications Medication Drug Class(es) Dates Sig (Normalized) Sig (Original) ascorbic acid 100 mg/ml oral solution (1 source) Vitamin C take 5 mL by mouth in the morning ascorbic acid, vitamin C, (VITAMIN C) 500 mg/5 mL syrup Take 5 mL (500 mg total) by mouth in the morning. 0 Active cholecalciferol 0.025 mg chewable tablet (1 source) Vitamin D cholecalciferol, vitamin D3, 25 mcg (1,000 unit) tablet,chewable Chew 250 mcg and swallow in the morning. 0 Active lactobacillus combination no.4 (PROBIOTIC) 3 billion cell capsule (1 source) Start: 05-15-2023 lactobacillus combination no.4 (PROBIOTIC) 3 billion cell capsule Take 1 capsule by mouth in the morning. 0 05/15/2023 Active mometasone furoate 0.001 mg/mg topical ointment (1 source) Corticosteroid Start: 04-16-2023 mometasone (ELOCON) 0.1 % ointment APPLY TO THE AFFECTED AREA(S) TWICE DAILY up to 3 (THREE) weeks, then NEEDED 0 04/16/2023 Active Completed/Discontinued Medications Medication Drug Class(es) Dates Sig (Normalized) Sig (Original) saccharomyces boulardii 250 mg oral powder (1 source) End: 05-15-2023 take 250 mg by mouth once daily Saccharomyces boulardii 250 mg powder in packet Take 250 mg by mouth nightly. 0 05/15/2023 Discontinued (Therapy completed) Problems Active Problems Problem Classification Problem Date Documented Da te Episodic/Chronic Disorders usually diagnosed in infancy, childhood, or adolescence (1 source) Autism spectrum disorder; Translations: [Autistic disorder] Onset: 02-06-2023 02-12-2023 Chronic Other nutritional; endocrine; and metabolic disorders (2 sources) Hypomagnesemia; Translations: [Hypomagnesemia] Onset: 02-06-2023 05-15-2023 Chronic Superficial injury; contusion (4 sources) Contusion of right foot, initial encounter; Translations: [CONTUSION RIGHT FOOT INITIAL ENC] Onset: 12-30-2018 Episodic Past or Other Problems Problem Classification Problem Date Documented Da te Episodic/Chronic Lymphadenitis (4 sources) Localized enlarged lymph nodes; Translations: [LOCALIZED ENLARGED LYMPH NODES] Onset: 09-05-2018 Episodic Mood disorders (1 source) Mood disorders Onset: 05-15-2023 05-15-2023 Pleurisy; pneumothorax; pulmonary collapse (3 sources) Other pneumothorax; Translations: [Spontaneous pneumothorax] Onset: 02-06-2023 Episodic Results Test Name Value Interpretation Reference Range Facility 30on 02-08-2023 30 The patient is Moderately Stable - Low risk of patient condition declining or worsening The patient's goals for the shift include rest The clinical goals for the shift include reexpansion of lung Over the shift, the patient did make progress toward the following goals. Problem: Respiratory - Adult Goal: Achieves optimal ventilation and oxygenation Outcome: Progressing Flowsheets (Taken 02/08/2023 0756) Achieves optimal ventilation and oxygenation: Assess for changes in respiratory status Assess for changes in mentation and behavior Position to facilitate oxygenation and minimize respiratory effort Oxygen supplementation based on oxygen saturation or arterial blood gases Assess and instruct to report shortness of breath or any respiratory difficulty Encourage broncho-pulmonary hygiene including cough, deep breathe, incentive spirometry Problem: Discharge Planning Goal: Discharge to home or other facility with appropriate resources Outcome: Progressing Flowsheets (Taken 02/08/2023 0756) Discharge to home or other facility with appropriate resources: Identify barriers to discharge with patient and caregiver Arrange for needed discharge resources and transportation as appropriate Refer to discharge planning if patient needs post-hospital services based on physician order or complex needs related to functional status, cognitive ability or social support system Normal [facility] BASIC METABOLIC PANELon 11- Anion gap [Moles/Vol] 10 mmol/L Normal 7-20 [facility] Comment on above: Performed By: #### L [id number] #### [facility] ([facility]) [address] [place] [address] Calcium [Mass/Vol] 9.5 mg/dL Normal 8.6-10.3 [facility] Comment on above: Performed By: #### L [id number] #### [facility] ([facility]) [address] [place] [address] Chloride [Moles/Vol] 104 mmol/L Normal 98-107 [facility] Comment on above: Performed By: #### L [id number] #### [facility] ([facility]) [address] [place] [address] CO2 [Moles/Vol] 29 mmol/L Normal 21-31 [facility] Comment on above: Performed By: #### L [id number] #### [facility] ([facility]) [address] [place] [address] Creatinine [Mass/Vol] 0.65 mg/dL Low 0.70-1.30 [facility] Comment on above: Performed By: #### L [id number] #### [facility] ([facility]) [address] [place] [address] GLOMERULAR FILTRATION RATE ML/MIN/1.73 SQ M.PREDICTED 138.3 mL/min/1.73m*2 Normal >60.0 [facility] Comment on above: Result Comment: The [facility]???s estimated glomerular filtration rate (eGFR) will no longer include consideration of race in its calculation. The National Kidney Foundation???s eGFR Task Force developed new recommendations for the estimation of the glomerular filtration rate in the [place] They recommend immediate implementation of the new equation refit without the race variable in all laboratories because the calculation does not include race. In addition to not including race in the calculation and reporting, it included diversity in its development, and has acceptable performance characteristics and potential consequences that do not disproportionately affect any one group of individuals. Performed By: #### L [id number] #### [facility] ([facility]) [address] [place] [address] Glucose [Mass/Vol] 92 mg/dL Normal 70-100 [facility] Comment on above: Performed By: #### L [id number] #### [facility] ([facility]) [address] [place] [address] Potassium [Moles/Vol] 4.1 mmol/L Normal 3.5-5.1 [facility] Comment on above: Performed By: #### L [id number] #### [facility] ([facility]) [address] [place] [address] Sodium [Moles/Vol] 139 mmol/L Normal 136-145 [facility] Comment on above: Performed By: #### L [id number] #### [facility] ([facility]) [address] [place] [address] Urea nitrogen [Mass/Vol] 10 mg/dL Normal 7-25 [facility] Comment on above: Performed By: #### L [id number] #### [facility] ([facility]) [address] [place] [address] UREA NITROGEN/CREATININE (MASS RATIO) IN SER/PLAS 15.4 Normal [facility] Comment on above: Performed By: #### L [id number] #### [facility] ([facility]) [address] [place] [address] CBC WITH AUTO DIFFERENTIALon 02-08-2023 Basophils (Bld) [#/Vol] 0.04 10*3/uL Normal 0.00-0.20 [facility] Comment on above: Performed By: #### L [id number] #### [facility] ([facility]) [address] [place] [address] Basophils/100 WBC (Bld) 0.7 % Normal 0.0-1.0 [facility] Comment on above: Performed By: #### L [id number] #### [facility] ([facility]) [address] [place] [address] Eosinophils (Bld) [#/Vol] 0.69 10*3/uL High 0.00-0.50 [facility] Comment on above: Performed By: #### L [id number] #### [facility] ([facility]) [address] [place] [address] Eosinophils/100 WBC (Bld) 12.3 % High 0.0-6.0 [facility] Comment on above: Performed By: #### L [id number] #### [facility] ([facility]) [address] [place] [address] Erythrocyte distribution width (RBC) [Ratio] 12.5 % Normal 11.5-15.0 [facility] Comment on above: Performed By: #### L [id number] #### [facility] ([facility]) [address] [place] [address] ERYTHROCYTE MEAN CORPUSCULAR HEMOGLOBIN CONCENTRATION (G/DL) BY AUTOMATED 33.7 g/dL Normal 32.0-35.0 [facility] Comment on above: Performed By: #### L [id number] #### [facility] ([facility]) [address] [place] [address] Hematocrit (Bld) [Volume fraction] 43.3 % Normal 39.0-55.0 [facility] Comment on above: Performed By: #### L [id number] #### [facility] ([facility]) [address] [place] [address] Hemoglobin (Bld) [Mass/Vol] 14.6 g/dL Normal 13.0-17.0 [facility] Comment on above: Performed By: #### L [id number] #### [facility] [address] [place] [address] Immature granulocytes (Bld) [#/Vol] 0.01 10*3/uL Normal 0.00-0.20 [facility] Comment on above: Performed By: #### L [id number] #### [facility] ([facility]) [address] [place] [address] Immature granulocytes/100 WBC (Bld) 0.2 % Normal 0.0-1.0 [facility] Comment on above: Performed By: #### L [id number] #### [facility] ([facility]) [address] [facility] [place] [address] Lymphocytes (Bld) [#/Vol] 1.90 10*3/uL Normal 1.20-4.00 [facility] Comment on above: Performed By: #### L [id number] #### [facility] ([facility]) [address] [place] [address] Lymphocytes/100 WBC (Bld) 34.0 % Normal 20.0-45.0 [facility] Comment on above: Performed By: #### L [id number] #### [facility] [address] [place] [address] MCH (RBC) [Entitic mass] 31.0 pg Normal 27.0-33.0 [facility] Comment on above: Performed By: #### L [id number] #### [facility] ([facility]) [address] [place] [address] MCV (RBC) [Entitic vol] 91.9 fL Normal 82.0-98.0 [facility] Comment on above: Performed By: #### L [id number] #### [facility] ([facility]) [address] [place] [address] Monocytes (Bld) [#/Vol] 1.00 10*3/uL Normal 0.10-1.00 [facility] Comment on above: Performed By: #### L [id number] #### [facility] ([facility]) [address] [place] [address] Monocytes/100 WBC (Bld) 17.9 % High 5.0-12.0 [facility] Comment on above: Performed By: #### L [id number] #### [facility] ([facility]) [address] [place] [address] Neutrophils (Bld) [#/Vol] 1.95 10*3/uL Normal 1.60-7.60 [facility] Comment on above: Performed By: #### L [id number] #### [facility] ([facility]) [address] [place] [address] Neutrophils/100 WBC (Bld) 34.9 % Low 40.0-72.0 [facility] Comment on above: Performed By: #### L [id number] #### [facility] ([facility]) [address] [place] [address] NRBC (PER 100 WBCS) BY AUTOMATED COUNT 0.0 % Normal 0 [facility] Comment on above: Performed By: #### L [id number] #### [facility] ([facility]) [address] [place] [address] PLATELETS (10*3/UL) IN BLOOD AUTOMATED COUNT 163 10*3/uL Normal 150-400 [facility] Comment on above: Performed By: #### L [id number] #### [facility] ([facility]) [address] [place] [address] RBC (Bld) [#/Vol] 4.71 10*6/uL Normal 4.20-5.70 [facility] Comment on above: Performed By: #### L [id number] #### [facility] [address] [place] [address] WBC (Bld) [#/Vol] 5.59 10*3/uL Normal 4.00-10.60 [facility] Comment on above: Performed By: #### L [id number] #### [facility] ([facility]) [address] [place] [address] MAGNESIUMon 02-08-2023 Magnesium [Mass/Vol] 1.8 mg/dL Low 1.9-2.7 [facility] Comment on above: Performed By: #### L [id number] #### [facility] ([facility]) [address] [place] [address] TROPONIN Ion 02-08-2023 Troponin I.cardiac [Mass/Vol] 0.03 ng/mL Normal 0.00-0.04 [facility] Comment on above: Performed By: #### L [id number] #### [facility] ([facility]) [address] [place] [address] 30on 02-07-2023 30 The patient is Moderately Stable - Low risk of patient condition declining or worsening The patient's goals for the shift include comfort/rest The clinical goals for the shift include O2 sats at 100 Problem: Pain - Adult Goal: Verbalizes/displays adequate comfort level or baseline comfort level Outcome: Progressing Problem: Safety - Adult Goal: Free from fall injury Outcome: Progressing Flowsheets (Taken 02/07/20231999) Free from fall injury: Assess patient frequently for physical needs Identify cognitive and physical deficits and behaviors that affect risk of falls [place] fall precautions as indicated by assessment Educate patient/family on patient safety, including physical limitations Instruct patient to call for assistance with activity based on assessment Modify environment to reduce risk of injury Consider OT/PT consult to assist with strengthening/mobility Problem: Discharge Planning Goal: Discharge to home or other facility with appropriate resources Outcome: Progressing Flowsheets (Taken 02/07/2023 192) Discharge to home or other facility with appropriate resources: Identify barriers to discharge with patient and caregiver Arrange for needed discharge resources and transportation as appropriate Identify discharge learning needs (meds, wound care, etc) Refer to discharge planning if patient needs post-hospital services based on physician order or complex needs related to functional status, cognitive ability or social support system Problem: Chronic Conditions and Co-morbidities Goal: Patient's chronic conditions and co-morbidity symptoms are monitored and maintained or improved Outcome: Progressing Flowsheets (Taken 02/07/20231925) Care Plan - Patient's Chronic Conditions and Co-Morbidity Symptoms are Monitored and Maintained or Improved: Monitor and assess patient's chronic conditions and comorbid symptoms for stability, deterioration, or improvement Collaborate with multidisciplinary team to address chronic and comorbid conditions and prevent exacerbation or deterioration Update acute care plan with appropriate goals if chronic or comorbid symptoms are exacerbated and prevent overall improvement and discharge Normal [facility] 30 The patient is Moderately Stable - Low risk of patient condition declining or worsening The patient's goals for the shift include [place] and rest The clinical goals for the shift include Resolve the problem of the pneumothorax Over the shift, the patient did not make progress toward the following goals. Barriers to progression include N/A. Recommendations to address these barriers include N/A. Normal [facility] BASIC METABOLIC PANELon 11-2 Anion gap [Moles/Vol] 10 mmol/L Normal 7-20 [facility] Comment on above: Performed By: #### L [id number] #### [facility] ([facility]) [address] [place] [address] Calcium [Mass/Vol] 9.3 mg/dL Normal 8.6-10.3 [facility] Comment on above: Performed By: #### L [id number] #### [facility] ([facility]) [address] [facility] [place] [address] Chloride [Moles/Vol] 102 mmol/L Normal 98-107 [facility] Comment on above: Performed By: #### L [id number] #### [facility] [address] [facility] [facility] [place] [address] CO2 [Moles/Vol] 28 mmol/L Normal 21-31 [facility] Comment on above: Performed By: #### L [id number] #### [facility] ([facility]) [address] [place] [address] Creatinine [Mass/Vol] 0.68 mg/dL Low 0.70-1.30 [facility] Comment on above: Performed By: #### L [id number] #### [facility] [address] [facility] [place] [address] GLOMERULAR FILTRATION RATE ML/MIN/1.73 SQ M.PREDICTED 136.5 mL/min/1.73m*2 Normal >60.0 [facility] Comment on above: Result Comment: The [facility]???s estimated glomerular filtration rate (eGFR) will no longer include consideration of race in its calculation. The National Kidney Foundation???s eGFR Task Force developed new recommendations for the estimation of the glomerular filtration rate in the [place] They recommend immediate implementation of the new equation refit without the race variable in all laboratories because the calculation does not include race. In addition to not including race in the calculation and reporting, it included diversity in its development, and has acceptable performance characteristics and potential consequences that do not disproportionately affect any one group of individuals. Performed By: #### L [id number] #### [facility] ([facility]) [address] [place] [address] Glucose [Mass/Vol] 101 mg/dL High 70-100 [facility] Comment on above: Performed By: #### L [id number] #### [facility] ([facility]) [address] [place] [address] Potassium [Moles/Vol] 4.1 mmol/L Normal 3.5-5.1 [facility] Comment on above: Performed By: #### L [id number] #### [facility] ([facility]) [address] [place] [address] Sodium [Moles/Vol] 136 mmol/L Normal 136-145 [facility] Comment on above: Performed By: #### L [id number] #### [facility] ([facility]) [address] [place] [address] Urea nitrogen [Mass/Vol] 9 mg/dL Normal 7-25 [facility] Comment on above: Performed By: #### L [id number] #### [facility] ([facility]) [address] [place] [address] UREA NITROGEN/CREATININE (MASS RATIO) IN SER/PLAS 13.2 Normal [facility] Comment on above: Performed By: #### L [id number] #### [facility] ([facility]) [address] [place] [address] CBC WITH AUTO DIFFERENTIALon 02-07-2023 Basophils (Bld) [#/Vol] 0.03 10*3/uL Normal 0.00-0.20 [facility] Comment on above: Performed By: #### L [id number] #### [facility] ([facility]) [address] [place] [address] Basophils/100 WBC (Bld) 0.5 % Normal 0.0-1.0 [facility] Comment on above: Performed By: #### L [id number] #### [facility] ([facility]) [address] [facility] [address] Eosinophils (Bld) [#/Vol] 0.34 10*3/uL Normal 0.00-0.50 [facility] Comment on above: Performed By: #### L [id number] #### [facility] ([facility]) [address] [place] [address] Eosinophils/100 WBC (Bld) 5.2 % Normal 0.0-6.0 [facility] Comment on above: Performed By: #### L [id number] #### [facility] ([facility]) [address] [place] [address] Erythrocyte distribution width (RBC) [Ratio] 12.5 % Normal 11.5-15.0 [facility] Comment on above: Performed By: #### L [id number] #### [facility] ([facility]) [address] [place] [address] ERYTHROCYTE MEAN CORPUSCULAR HEMOGLOBIN CONCENTRATION (G/DL) BY AUTOMATED 34.8 g/dL Normal 32.0-35.0 [facility] Comment on above: Performed By: #### L [id number] #### [facility] ([facility]) [address] [place] [address] Hematocrit (Bld) [Volume fraction] 42.2 % Normal 39.0-55.0 [facility] Comment on above: Performed By: #### L [id number] #### [facility] ([facility]) [address] [place] [address] Hemoglobin (Bld) [Mass/Vol] 14.7 g/dL Normal 13.0-17.0 [facility] Comment on above: Performed By: #### L [id number] #### [facility] ([facility]) [address] [place] [address] Immature granulocytes (Bld) [#/Vol] 0.02 10*3/uL Normal 0.00-0.20 [facility] Comment on above: Performed By: #### L [id number] #### [facility] ([facility]) [address] [place] [address] Immature granulocytes/100 WBC (Bld) 0.3 % Normal 0.0-1.0 [facility] Comment on above: Performed By: #### L [id number] #### [facility] ([facility]) [address] [place] [address] Lymphocytes (Bld) [#/Vol] 0.84 10*3/uL Low 1.20-4.00 [facility] Comment on above: Performed By: #### L [id number] #### [facility] ([facility]) [address] [place] [address] Lymphocytes/100 WBC (Bld) 12.9 % Low 20.0-45.0 [facility] Comment on above: Performed By: #### L [id number] #### [facility] ([facility]) [address] [place] [address] MCH (RBC) [Entitic mass] 31.3 pg Normal 27.0-33.0 [facility] Comment on above: Performed By: #### L [id number] #### [facility] [address] [place] [address] MCV (RBC) [Entitic vol] 90.0 fL Normal 82.0-98.0 [facility] Comment on above: Performed By: #### L [id number] #### [facility] ([facility]) [address] [place] [address] Monocytes (Bld) [#/Vol] 0.86 10*3/uL Normal 0.10-1.00 [facility] Comment on above: Performed By: #### L [id number] #### [facility] ([facility]) [address] [place] [address] Monocytes/100 WBC (Bld) 13.2 % High 5.0-12.0 [facility] Comment on above: Performed By: #### L [id number] #### [facility] [address] [place] [address] Neutrophils (Bld) [#/Vol] 4.43 10*3/uL Normal 1.60-7.60 [facility] Comment on above: Performed By: #### L [id number] #### [facility] ([facility]) [address] [place] [address] Neutrophils/100 WBC (Bld) 67.9 % Normal 40.0-72.0 [facility] Comment on above: Performed By: #### L [id number] #### [facility] ([facility]) [address] [place] [address] NRBC (PER 100 WBCS) BY AUTOMATED COUNT 0.0 % Normal 0 [facility] Comment on above: Performed By: #### L [id number] #### [facility] [facility] [address] [place] [address] PLATELETS (10*3/UL) IN BLOOD AUTOMATED COUNT 179 10*3/uL Normal 150-400 [facility] Comment on above: Performed By: #### L [id number] #### [facility] ([facility]) [address] [place] [address] RBC (Bld) [#/Vol] 4.69 10*6/uL Normal 4.20-5.70 [facility] Comment on above: Performed By: #### L [id number] #### [facility] ([facility] [address] [place] [address] WBC (Bld) [#/Vol] 6.52 10*3/uL Normal 4.00-10.60 [facility] Comment on above: Performed By: #### L [id number] #### [facility] ([facility]) [address] [place] [address] CONSULTon 02-07-2023 CONSULT --- Attestation signed by Nitin Jackson MD at 02/07/2023 11:20 PM I reviewed the salient portions of the patient history. I have seen and examined the patient during rounds with the resident/fellow. I repeated the alaniz components of the exam. Agree with the noted assessment and plan. Nitin Jackson MD [facility] Pulmonary and Critical Care Medicine Pulmonology Consult Patient : Jarvis Ghosh : 2000 Location: [id number] Attending: Boogie Price MD Admit Date: 02/06/2023 Hospital Day: 1 Reason for Consult: Spontaneous pneumothorax. HPI: Jarvis Ghosh is a 22 y.o. male with no significant past medical history, recently had spontaneous pneumothorax 2 weeks ago after he started to have left-sided chest pain, no preceding trauma, falling down, or excessive cough. No prior history of pneumothorax. At [facility] patient had chest tube placed first one for two days then removed, found to have residual pneumothorax, then another chest tube placed and removed after 2 days, with resolution of the pneumothorax. He was discharged home. After discharge he continued to have right-sided chest pain at the site of the chest tube insertion. In the last 2 days patient continued to have left-sided chest pain and popping sounds in his chest he went to [facility] again chest x-ray showed small apical pneumothorax for which he was transferred to [facility]. No tobacco smoking or vaping. During my evaluation patient was resting comfortably in bed, denies any shortness of breath, chest pain, or cough. Saturation was 100% on room air. Repeat chest x-ray this morning showed stable left-sided small pneumothorax. Assessment: # Primary spontaneous left-sided pneumothorax. This picture present on the other recurrent spontaneous pneumothorax versus residual air from the previous one Plan: -Placed on 100% nonrebreather mask. -Repeat chest x-ray later in the afternoon. If pneumothorax is stable in size or resolved no role for chest tube insertion. -Advised the patient to avoid any heavy lifting, straining, air travel for 2 weeks. -Will follow-up the patient in the pulmonary clinic with repeat chest x-ray. May need pleurodesis in case of recurrent pneumothoraces. Thank you for your consult pulmonary team will continue to follow. Past History/Allergies?Socia l History: No past medical history on file. Not on File Social History Socioeconomic History Marital status: Not on file Spouse name: Not on file Number of children: Not on file Years of education: Not on file Highest education level: Not on file Occupational History Not on file Tobacco Use Smoking status: Never Smokeless tobacco: Never Substance and Sexual Activity Alcohol use: Not on file Drug use: Not on file Sexual activity: Not on file Other Topics Concern Not on file Social History Narrative Not on file Social Determinants of Health Financial Resource Strain: Low Risk (02/06/2023) Overall Financial Resource Strain (CARDIA) Difficulty of Paying Living Expenses: Not hard at all Food Insecurity: Unknown (02/06/2023) Hunger Vital Sign Worried About Running Out of Food in the Last Year: Never true Ran Out of Food in the Last Year: Not on file Transportation Needs: Unknown (02/06/2023) PRAPARE - Transportation Lack of Transportation (Medical): No Lack of Transportation (Non-Medical): Not on file Physical Activity: Not on file Stress: Not on file Social Connections: Not on file Intimate Partner Violence: Unknown (02/06/2023) Humiliation, Afraid, Rape, and Kick questionnaire Fear of Current or Ex-Partner: No Emotionally Abused: Not on file Physically Abused: Not on file Sexually Abused: Not on file Housing Stability: Unknown (02/06/2023) Housing Stability Vital Sign Unable to Pay for Housing in the Last Year: Not on file Number of Places Lived in the Last Year: Not on file Unstable Housing in the Last Year: No Family History: Family History Problem Relation Name Age of Onset No Known Problems Mother No Known Problems Father Outpatient Medications: Current Facility-Administered Medications: acetaminophen (Tylenol) tablet 650 mg, 650 mg, oral, q6h PRN, Marielena Pirkl, STRINGED INSTRUMENT ASSEMBLER, 650 mg at 02/07/23 0319 dyclonine throat lozenge 2 mg, 1 lozenge, Mouth/Throat, q2h PRN, Marielena Pirkl, STRINGED INSTRUMENT ASSEMBLER, 2 mg at 02/07/23 0106 melatonin tablet 5 mg, 5 mg, oral, Nightly PRN, Marielena Pirkl, STRINGED INSTRUMENT ASSEMBLER, 5 mg at 02/07/23 0107 morphine injection 2 mg, 2 mg, intravenous, q4h PRN, Marielena Conner, STRINGED INSTRUMENT ASSEMBLER Insert peripheral IV, , , Once AND Saline lock IV, , , Once AND sodium chloride flush 10 mL, 10 mL, intravenous, q8h PRN, Marielena Conner, STRINGED INSTRUMENT ASSEMBLER Current Medications: Scheduled Meds: Continuous Infusions: PRN Meds: PRN me (more content not included)... Normal [facility] MAGNESIUMon 02-07-2023 Magnesium [Mass/Vol] 1.8 mg/dL Low 1.9-2.7 [facility] Comment on above: Performed By: #### L [id number] #### [facility] ([facility]) [address] [place] [address] NURSNOTEon 02-07-2023 NURSNOTE Patient notified RN of new chest pain rating it a 5/10. Per patient this pain does not move or change when breathing in/out. Patients lung sounds remain unchanged from earlier and no major changes in vitals. Legal Administrative Secretary notified Marielena Conner and pulm team. Per pulm RN to order repeat chest xray now and pulm coming to bedside. Orders placed. Normal [facility] 30on 02-06-2023 30 The patient is Moderately Stable - Low risk of patient condition declining or worsening The patient's goals for the shift include comfort and rest The clinical goals for the shift include safety Over the shift, the patient did make progress toward his goals. Normal [facility] 30 The patient is Moderately Unstable - Medium risk of patient condition declining or worsening The patient's goals for the shift include comfort The clinical goals for the shift include safety Normal [facility] CBC WITH AUTO DIFFERENTIALon 02-06-2023 Basophils (Bld) [#/Vol] 0.02 10*3/uL Normal 0.00-0.20 [facility] Comment on above: Performed By: #### L [id number] #### [facility] ([facility]) [address] [facility] [place] [address] Basophils/100 WBC (Bld) 0.2 % Normal 0.0-1.0 [facility] Comment on above: Performed By: #### L [id number] #### [facility] ([facility]) [address] [facility] [place] [address] Eosinophils (Bld) [#/Vol] 0.48 10*3/uL Normal 0.00-0.50 [facility] Comment on above: Performed By: #### L [id number] #### [facility] ([facility]) [address] [facility] [place] [address] Eosinophils/100 WBC (Bld) 4.9 % Normal 0.0-6.0 [facility] Comment on above: Performed By: #### L [id number] #### [facility] ([facility]) [address] [facility] [place] [address] Erythrocyte distribution width (RBC) [Ratio] 12.3 % Normal 11.5-15.0 [facility] Comment on above: Performed By: #### L [id number] #### [facility] ([facility]) [address] [facility] [place] [address] ERYTHROCYTE MEAN CORPUSCULAR HEMOGLOBIN CONCENTRATION (G/DL) BY AUTOMATED 34.7 g/dL Normal 32.0-35.0 [facility] Comment on above: Performed By: #### L [id number] #### [facility] ([facility]) [address] [place] [address] Hematocrit (Bld) [Volume fraction] 42.7 % Normal 39.0-55.0 [facility] Comment on above: Performed By: #### L [id number] #### [facility] ([facility]) [address] [place] [address] Hemoglobin (Bld) [Mass/Vol] 14.8 g/dL Normal 13.0-17.0 [facility] Comment on above: Performed By: #### L [id number] #### [facility] ([facility]) [address] [place] [address] Immature granulocytes (Bld) [#/Vol] 0.02 10*3/uL Normal 0.00-0.20 [facility] Comment on above: Performed By: #### L [id number] #### [facility] ([facility]) [address] [place] [address] Immature granulocytes/100 WBC (Bld) 0.2 % Normal 0.0-1.0 [facility] Comment on above: Performed By: #### L [id number] #### [facility] ([facility]) [address] [place] [address] Lymphocytes (Bld) [#/Vol] 0.84 10*3/uL Low 1.20-4.00 [facility] Comment on above: Performed By: #### L [id number] #### [facility] ([facility]) [address] [place] [address] Lymphocytes/100 WBC (Bld) 8.5 % Low 20.0-45.0 [facility] Comment on above: Performed By: #### L [id number] #### [facility] ([facility] [address] [place] [address] MCH (RBC) [Entitic mass] 31.2 pg Normal 27.0-33.0 [facility] Comment on above: Performed By: #### L [id number] #### [facility] ([facility]) [address] [place] [address] MCV (RBC) [Entitic vol] 89.9 fL Normal 82.0-98.0 [facility] Comment on above: Performed By: #### L [id number] #### [facility] ([facility]) [address] [place] [address] Monocytes (Bld) [#/Vol] 0.80 10*3/uL Normal 0.10-1.00 [facility] Comment on above: Performed By: #### L [id number] #### [facility] ([facility]) [address] [place] [address] Monocytes/100 WBC (Bld) 8.1 % Normal 5.0-12.0 [facility] Comment on above: Performed By: #### L [id number] #### [facility] ([facility]) [address] [place] [address] Neutrophils (Bld) [#/Vol] 7.73 10*3/uL High 1.60-7.60 [facility] Comment on above: Performed By: #### L [id number] #### [facility] ([facility]) [address] [place] [address] Neutrophils/100 WBC (Bld) 78.1 % High 40.0-72.0 [facility] Comment on above: Performed By: #### L [id number] #### [facility] ([facility] [address] [place] [address] NRBC (PER 100 WBCS) BY AUTOMATED COUNT 0.0 % Normal 0 [facility] Comment on above: Performed By: #### L [id number] #### [facility]) [address] [place] [address] PLATELETS (10*3/UL) IN BLOOD AUTOMATED COUNT 201 10*3/uL Normal 150-400 [facility] Comment on above: Performed By: #### L [id number] #### [facility]) [address] [place] [address] RBC (Bld) [#/Vol] 4.75 10*6/uL Normal 4.20-5.70 [facility] Comment on above: Performed By: #### L [id number] #### [facility] ([facility]) [address] [place] [address] WBC (Bld) [#/Vol] 9.89 10*3/uL Normal 4.00-10.60 [facility] Comment on above: Performed By: #### L [id number] #### [facility] ([facility]) [address] [place] [address] COMPREHENSIVE METABOLIC PANE Jose 02-06-2023 Albumin [Mass/Vol] 4.8 g/dL Normal 3.5-5.7 [facility] Comment on above: Performed By: #### L [id number] #### [facility] ([facility]) [address] [place] [address] ALP [Catalytic activity/Vol] 89 U/L Normal 34-104 [facility] Comment on above: Performed By: #### L [id number] #### [facility] ([facility]) [address] [place] [address] ALT [Catalytic activity/Vol] 22 U/L Normal 7-52 [facility] Comment on above: Performed By: #### L [id number] #### [facility] ([facility]) [address] [place] [address] Anion gap [Moles/Vol] 12 mmol/L Normal 7-20 [facility] Comment on above: Performed By: #### L [id number] #### [facility] ([facility]) [address] [place] [address] AST [Catalytic activity/Vol] 18 U/L Normal 13-39 [facility] Comment on above: Performed By: #### L [id number] #### [facility] ([facility]) [address] [place] [address] Bilirubin [Mass/Vol] 0.8 mg/dL Normal 0.3-1.0 [facility] Comment on above: Performed By: #### L [id number] #### [facility] ([facility] [address] [place] [address] Calcium [Mass/Vol] 9.5 mg/dL Normal 8.6-10.3 [facility] Comment on above: Performed By: #### L [id number] #### [facility] ([facility]) [address] [place] [address] Chloride [Moles/Vol] 101 mmol/L Normal 98-107 [facility] Comment on above: Performed By: #### L [id number] #### [facility] ([facility]) [address] [place] [address] CO2 [Moles/Vol] 27 mmol/L Normal 21-31 [facility] Comment on above: Performed By: #### L [id number] #### [facility] ([facility]) [address] [place] [address] Creatinine [Mass/Vol] 0.66 mg/dL Low 0.70-1.30 [facility] Comment on above: Performed By: #### L [id number] #### [facility] ([facility]) [address] [place] [address] GLOMERULAR FILTRATION RATE ML/MIN/1.73 SQ M.PREDICTED 137.7 mL/min/1.73m*2 Normal >60.0 [facility] Comment on above: Result Comment: The [facility]???s estimated glomerular filtration rate (eGFR) will no longer include consideration of race in its calculation. The National Kidney Foundation???s eGFR Task Force developed new recommendations for the estimation of the glomerular filtration rate in the [place] They recommend immediate implementation of the new equation refit without the race variable in all laboratories because the calculation does not include race. In addition to not including race in the calculation and reporting, it included diversity in its development, and has acceptable performance characteristics and potential consequences that do not disproportionately affect any one group of individuals. Performed By: #### L [id number] #### [facility] ([facility]) [address] [place] [address] Glucose [Mass/Vol] 94 mg/dL Normal 70-100 [facility] Comment on above: Performed By: #### L [id number] #### [facility] ([facility]) [address] [place] [address] Potassium [Moles/Vol] 4.0 mmol/L Normal 3.5-5.1 [facility] Comment on above: Performed By: #### L [id number] #### [facility] ([facility]) [address] [place] [address] Protein [Mass/Vol] 7.6 g/dL Normal 6.0-8.3 [facility] Comment on above: Performed By: #### L [id number] #### [facility] ([facility]) [address] [place] [address] Sodium [Moles/Vol] 136 mmol/L Normal 136-145 [facility] Comment on above: Performed By: #### L [id number] #### [facility] ([facility]) [address] [place] [address] Urea nitrogen [Mass/Vol] 10 mg/dL Normal 7-25 [facility] Comment on above: Performed By: #### L [id number] #### [facility] ([facility]) [address] [place] [address] UREA NITROGEN/CREATININE (MASS RATIO) IN SER/PLAS 15.2 Normal [facility] Comment on above: Performed By: #### L [id number] #### [facility] ([facility]) [address] [place] [address] LACTIC ACID, PLASMAon 2022 LACTATE (MMOL/L) IN SER/PLAS 1.1 mmol/L Normal 0.5-2.2 [facility] Comment on above: Performed By: #### L [id number] #### [facility] ([facility]) [address] [place] [address] MAGNESIUMon 02-06-2023 Magnesium [Mass/Vol] 1.7 mg/dL Low 1.9-2.7 [facility] Comment on above: Performed By: #### L [id number] #### [facility] ([employer]) [address] [place] [address] PHOSPHORUSon 02-06-2023 Magnesium [Mass/Vol] 4.0 mg/dL Normal 2.5-5.0 [facility] Comment on above: Performed By: #### L [id number] #### [facility] ([employer]) [address] [place] [address] PROTIME-INRon 02-06-2023 INR IN PPP BY COAGULATION ASSAY 1.00 Normal 0.90-1.10 [facility] Comment on above: Result Comment: ACC[facility] P RECOMMENDED INR FOR WARFARIN THERAPY CONDITION INR PROPHYLAXIS OF VENOUS THROMBOSIS 2-3 (HIGH-RISK SURGERY) TREATMENT OF VENOUS THROMBOSIS 2-3 TREATMENT OF PULMONARY EMBOLISM 2-3 PREVENTION OF SYSTEMIC EMBOLISM: 2-3 ACUTE MYOCARDIAL INFARCTION TISSUE HEART VALVES VALVULAR HEART DISEASE ATRIAL FIBRILLATION RECURRENT SYSTEMIC EMBOLISM MECHANICAL HEART VALVE 2.5-3.5 FROM: ORAL ANTICOAGULANTS. MECHANISM OF ACTION, CLINICAL EFFECTIVENESS, AND OPTIMAL THERAPEUTIC RANGE. CHEST 1995;108:231S-246S. Performed By: #### L [id number] #### [facility] [email or web address]) [address] [place] [address] PROTHROMBIN TIME (PT) IN PPP BY COAGULATION ASSAY 13.2 Seconds Normal 12.3-14.8 [facility] Comment on above: Performed By: #### L [id number] #### [facility] [email or web address] [address] [place] [address] Auth for Release of Medical Recordson 05-30-2020 Auth for Release of Medical Records [id number] D:127 Normal [facility] XR FOOT RT MIN 3 VIEWSon XR FOOT RT MIN 3 VIEWS Patient: JARVIS GOHSH Exam Date: 12/30/2018 : 2000 Gender:M Ordering : DR CHRISTOPHER BYRD M.D. Admission #: [id number] Family : Order #: [id number] CLICK HERE TO VIEW EXAM RADIOLOGY REPORT PROCEDURE: RADIOGRAPH FOOT RIGHT MIN 3 VIEWS COMPARISON: None. INDICATIONS: Acute contusion of right medial foot while playing soccer FINDINGS: BONES: No fracture, acute abnormality, or significant arthropathy. Separate, secondary ossification at the medial margin of the navicular bone; developmental variant. SOFT TISSUES: No visible soft tissue swelling or radiopaque foreign body. OTHER: Negative. CONCLUSION: 1. No acute or suspicious bone abnormality. Dictated by: Braden Colon M.D. on 12/30/2018 at 11:09 Approved by: Barden Colon M.D. on 12/30/2018 at 11:11 Normal [facility] US ST HEAD WITH NECKon 09-05 ST HEAD WITH NECK Patient: JARVIS GHOSH Exam Date: 09/05/2018 : 2000 Gender:Owen Ordering : DR DEYSI LOONEY M.D. Admission #: [id number] Family : Order #: [id number] CLICK HERE TO VIEW EXAM PROCEDURE: ULTRASOUND SOFT TISSUE HEAD WITH NECK COMPARISON: None. INDICATIONS: Submental lymphadenopathy FINDINGS: The patient's palpable lump along the inferior left margin the mandible corresponds to a 1.9 x 1.8 x 0.4 cm lymph node. More inferiorly is a 2nd prominent lymph node versus 2 adjacent lymph nodes, 2.4 cm in length. CONCLUSION: 1. Mild lymphadenopathy corresponding to the patient's palpable lump with an additional prominent lymph nodes slightly more inferiorly. Follow-up is recommended. Tissue sampling could be performed if clinically indicated. Dictated by: Braden Colon M.D. on 09/05/2018 at 19:26 Approved by: Braden Colon M.D. on 09/05/2018 at 19:29 Normal [facility] Vital Signs Date Time Vital Sign Value Performing Clinician Facility 05-15-2023 08:32-0500 Body height 189.2 cm Thai Rodriguez DO [facility] 05-15-2023 08:32-0500 Body mass index (BMI) [Ratio] 17.36 kg/m2 Tahi Abramsng DO Work Phone: [facility] 05-15-2023 08:32-0500 Body temperature 98.49 [degF] Thai [employer]Tech DO [facility] 05-15-2023 08:32-0500 Body weight 62.14 kg Thai [employer]StyleTech DO [facility] 05-15-2023 08:32-0500 Diastolic blood pressure 60 mm[Hg] Thai Rodriguez DO Work Phone: [facility] 05-15-2023 08:32-0500 Heart rate 83 /min Thai AlizaStyleTech DO [facility] 05-15-2023 08:32-0500 SaO2% (BldA) [Mass fraction] 97 % Thai Rodriguez DO [facility] 05-15-2023 08:32-0500 Systolic blood pressure 108 mm[Hg] Thai Rodriguez DO Work Phone: [facility] Encounters Encounter Date Encounter Type Care Provider Facility Start: 05-15-2023 End: 05-15-2023 Patient encounter status Thai Rodriguez DO [facility] Work [facility]: Start: 05-15-2023 End: 05-15-2023 Periodic preventive med est patient 18-39 yrs Thai Rodriguez DO Work Phone: [facility] - [facility] Medicine Comment on above: Well adult exam (Funmi velasco Dx); Hypomagnesemia Start: 02-08-2023 Evaluation and management of inpatient BOOGIE [facility] Start: 02-08-2023 Evaluation and management of inpatient BOOGIE [facility] Start: 02-07-2023 Evaluation and management of inpatient BOOGIE [facility] Start: 02-07-2023 Evaluation and management of inpatient BOOGIE [facility] Start: 02-06-2023 Evaluation and management of inpatient MARIELENA CONNER [facility] Start: 02-06-2023 End: 02-08-2023 Evaluation and management of inpatient CATRINA JULIAN [facility] Start: 12-30-2018 End: 12-31-2018 Patient encounter procedure CHRISTOPHER BYRD Facility:[facility] Start: 09-05-2018 End: 09-06-2018 Patient encounter procedure DEYSI LOONEY Facility:[facility] Procedures Date Procedure Procedure Detail Performing Clinician Start: 05-15-2023 Adult depression screening assessment Thai Rodriguez DO Work Phone: Plan of Treatment Date Care Activity Detail Author Start: 01-20-2025 DTaP,Tdap and Td Vaccines (7 - Td or Tdap) DTaP,Tdap and Td Vaccines (7 - Td or Tdap) [facility] Start: 05-15-2024 Adult BMI Screening Adult BMI Screen ing [facility] Start: 05-15-2024 Depression Screening Depression Scre ening [facility] Start: 05-15-2024 Tobacco Screening Tobacco Screening [facility] Start: 06-16-2023 Influenza vaccination Influenza Vacc ine [facility] Comment on above: Postponed from 11/16 (Patient Refused) Start: 2020 Adult BMI Follow Up Plan Adult BMI Follow Up Plan [facility] Immunizations Immunization Date Immunization Notes Care Provider Rolanda dennis 01-20-2015 hepatitis A vaccine, pediatric/adolescent dosage, 2 dose schedule Thai Rodriguez DO Work Phone: [facility] 01-20-2015 meningococcal polysaccharide (groups A, C, Y and W-135) diphtheria toxoid conjugate vaccine (MCV4P) Thai Furlong DO Work Phone: [facility] 01-20-2015 tetanus toxoid, redu leti diphtheria toxoid, and acellular pertussis vaccine, adsorbed Thai Furlong DO Work Phone: [facility] 02-27-2010 influenza, seasonal, injectable, preservative free Thai Furlong DO Work Phone: [facility] [facility] 02-27-2010 influenza virus vacc ine, unspecified formulation Thai Furlong DO Work Phone: [facility] 01-25-2010 influenza, seasonal, injectable, preservative free Thai Furlong DO Work Phone: [facility] 02-11-2009 influenza, seasonal, injectable, preservative free Thai Furlong DO Work Phone: [facility] 01-21-2008 influenza, seasonal, injectable, preservative free Thai Furlong DO Work Phone: [facility] 05-14-2007 diphtheria, tetanus toxoids and acellular pertussis vaccine Thai Furlong DO Work Phone: [facility] 05-14-2007 measles, mumps and rubella virus vaccine Thai Furlong DO Work Phone: [facility] 05-14-2007 poliovirus vaccine, inactivated Thai Furlong DO Work Phone: [facility] 05-14-2007 varicella virus vaccine Denn is Furlong DO Work Phone: [facility] 01-10-2006 influenza, seasonal, injectable Thai Furlong DO Work Phone: [facility] 12-27-2004 influenza virus vacc ine, whole virus Thai Furlong DO Work Phone: [facility] 05-27-2003 diphtheria, tetanus toxoids and acellular pertussis vaccine Thai Furlong DO Work Phone: [facility] 05-27-2003 haemophilus influenz ae type b conjugate and Hepatitis B vaccine Thai Furlong DO Work Phone: [facility] 04-26-2003 measles, mumps and rubella virus vaccine Thai Furlong DO Work Phone: [facility] 04-26-2003 varicella virus vaccine Denn is Furlong DO Work Phone: [facility] 2002 diphtheria, tetanus toxoids and acellular pertussis vaccine Thai Furlong DO Work Phone: [facility] 2002 haemophilus influenz ae type b vaccine, PRP-T conjugate Thai Furlong DO Work Phone: [facility] 2002 poliovirus vaccine, inactivated Thai Furlong DO Work Phone: [facility] 2002 diphtheria, tetanus toxoids and acellular pertussis vaccine Thai Furlong DO Work Phone: [facility] 2002 haemophilus influenz ae type b conjugate and Hepatitis B vaccine Thai Furlong DO Work Phone: [facility] 2002 poliovirus vaccine, inactivated Thai Furlong DO Work Phone: [facility] 2002 diphtheria, tetanus toxoids and acellular pertussis vaccine, 5 pertussis antigens Thai Furlong DO Work Phone: [facility] 2002 haemophilus influenz ae type b conjugate and Hepatitis B vaccine Thai Furlong DO Work Phone: [facility] 2002 poliovirus vaccine, inactivated Thai Furlong DO Work Phone: [facility] Payers Date Payer Category Payer Private Health Insurance [facility] [employer] [id number] 2022-Present [phone] [address] [address] [place] [address] [id number] 2022 Unknown [id number] 1972 Unknown [id number] 1972 Unknown [id number] 1959 Unknown [id number] Social History Date Type Detail Facility Start: 06-12-2022 Tobacco smoking stat [facility] Never smoked tobacco [facility] Start: 06-12-2022 Tobacco use and exposure Smoke less tobacco non-user [facility] Start: 05-15-2023 Alcohol intake Lifetime non-d kimberly (finding) [facility] Start: 06-12-2022 End: 05-15-2023 History of Social function [facility] Start: 06-12-2022 End: 05-15-2023 [facility] [employer] [facility] Has the [employer], [employer], oil, or water [employer] threatened to shut off services in your home in past 12Mo No [facility] Do you belong to any clubs or organizations such as caodaism groups, unions, fraternal or athletic groups, or school groups? Yes [facility] Are you now , , , , never or living with a partner? Never [facility] How often to you hav e a drink containing alcohol? Never [facility] How many standard dr inks containing alcohol do you have on a typical day? Patient does not drink [facility] Do you feel stress - tense, restless, nervous, or anxious, or unable to sleep at night because your mind is troubled all the time - these days [OSQ] Not at all [facility] Start: 2002 Sex Assigned At Not on file P [facility] History of Present illness Narrative 05-15-2023 Thai Rodriguez, DO - 05/15/2023 8:30 AM EST Note Date & Type Note Facility 05-15-2023 History of Present illness Narrative Subjective: Jarvis Ghosh is a 23 y.o. male and is here for a comprehensive physical exam. The patient reports no problems. He had a pneumothorax last January. No problems since. It re-expanded with chest tube. He sees the bender machine next week for a follow-up visit Do you take any herbs or supplements that were not prescribed by a doctor? yes Are you taking calcium supplements? no Are you taking aspirin daily? no The following portions of the patient's history were reviewed and updated as appropriate: allergies, current medications, past family history, past medical history, past social history, past surgical history, problem list, and medication reconciliation was completed including current medication and post discharge medication. Review of Systems Do you have pain that bothers you in your daily life? no A comprehensive review of systems was negative. Objective: BP 108/60 (BP Site: Left Arm, BP Postition: Sitting) Pulse 83 Temp 36.9 C (98.5 F) (Oral) Ht 189.2 cm (6' 2.49 ) Wt 62.1 kg (137 lb) SpO2 97% BMI 17.36 kg/m General Appearance: Alert, cooperative, no distress, appears stated age Head: Normocephalic, without obvious abnormality, atraumatic Eyes: PERRL, conjunctiva/corneas clear, EOM's intact, fundi benign, both eyes Ears: Moderate cerumenosis both ears; Tms partially visualized Nose: Nares normal, septum midline, mucosa normal, no drainage or sinus tenderness Throat: Lips, mucosa, and tongue normal; teeth and gums normal Neck: Supple, symmetrical, trachea midline, no adenopathy; thyroid: No enlargement/tenderness/nodules; no carotid bruit or JVD Back: Symmetric, no curvature, ROM normal, no CVA tenderness Lungs: Clear to auscultation bilaterally, respirations unlabored Chest wall: No tenderness or deformity Heart: Regular rate and rhythm, S1 and S2 normal, no murmur, rub or gallop Abdomen: Soft, non-tender, bowel sounds active all four quadrants, no masses, no organomegaly Genitalia: Declined Extremities: Extremities normal, atraumatic, no cyanosis or edema Pulses: 2+ and symmetric all extremities Skin: Skin color, texture, turgor normal, no rashes or lesions Lymph nodes: Cervical, supraclavicular, and axillary nodes normal Neurologic: CNII-XII intact. Normal strength, sensation and reflexes throughout Assessment: Healthy male exam. Hypomagnesemia Plan: 1. Health maintenance discussed. He refuses labs. 2. Patient Counseling: --Nutrition: Stressed importance of moderation in sodium/caffeine intake, saturated fat and cholesterol, caloric balance, sufficient intake of fresh fruits, vegetables, fiber, calcium, iron, and 1 mg of folate supplement per day (for females capable of ). Mg+ rich foods discussed. --Exercise: Stressed the importance of regular exercise. --Substance Abuse: Discussed cessation/primary prevention of tobacco, alcohol, or other drug use; driving or other dangerous activities under the influence; availability of treatment for abuse. --Sexuality: Discussed sexually transmitted diseases, partner selection, use of condoms, avoidance of unintended and contraceptive alternatives. --Injury prevention: Discussed safety belts, safety helmets, smoke detector, smoking near bedding or upholstery. --Dental health: Discussed importance of regular tooth brushing, flossing, and dental visits. --Immunizations reviewed. --Discussed benefits of screening colonoscopy. --After hours service discussed with patient 3. Discussed the patient's BMI with him. The BMI is below average. Diet discussed. Avoid skipping meals 4. Follow up next physical in 1 year documented in this encounter [facility] Clinical Note 02-08-2023 Note Date & Type Note Facility 02-08-2023 Note Hospital Medicine Discharge Summary Final Discharge Diagnosis: Spontaneous pneumothorax Admission Diagnosis: Spontaneous pneumothorax [J93.83] Spontaneous pneumothorax-resolved on chest xray imaging 02/08 SOB Hypomagnesemia Autism spectrum disorder Hospital course: Jarvis Ghosh is an 22 y.o. male who came from [facility] with no known past medical history presents as a direct admission from [facility] [place] with a spontaneous pneumothorax. Per report, patient also had a pneumothorax around 2 weeks ago with chest tube placement and was DC'd home and return back to the emergency department. Patient returned to [place] again last evening with left-sided chest pain and a crackling sound in his chest. Ct chest without contrast was completed showing small left pneumothorax occupying 10% of the left hemithorax with left upper pleural separation of 1.6 cm left anterior basilar pleural separation of 1.4 cm. As there is no pulmonary service at [facility], patient was transferred to [facility]. Upon arrival to [facility], repeat cxr was completed and pulmonary team was consulted. They state no chest tube placement tonight and they will repeat cxr in AM to decide. Labs are unremarkable except for a mag of 1.7. Pulmonary team was consulted and patient was placed on a nonrebreather at 10L and maintained sp02 at 100%. First chest xray on 02/07 showed increase in apical pneumo from 16mm to 21mm. Chest xray was repeated 02/08 and no pnemothorax seen. Patient was cleared for discharge with pulmonary follow up for potential pleurodesis in the case of recurrent pneumothoraces and follow up xray in 1 week. Patient was directed to go to the ER for any chest pain or shortness of breath. Dear Dr. Michael MD, [place] is advised to follow up with you within 1-2 weeks. Follow-up with: Pulmonary Scheduled appointments: No future appointments. Your medication list CONTINUE taking these medications Instructions Last Dose Given Next Dose Due ascorbic acid 500 mg/5 mL liquid Commonly known as: Vitamin C cholecalciferol (vitamin D3) 25 mcg (1,000 unit) tablet,chewable Saccharomyces boulardii 250 mg powder in packet Jarvis has no allergies on file. Disposition: Home or Self Care Discharge Condition: Stable Code Status: Prior Diagnostic Results Hematology: Results from last 7 days Lab Units 02/08/23 0436 02/07/23 0810 02/06/23 1852 WBC AUTO 10*3/uL 5.59 6.52 9.89 HEMOGLOBIN g/dL 14.6 14.7 14.8 HEMATOCRIT % 43.3 42.2 42.7 MCV fL 91.9 90.0 89.9 PLATELETS AUTO 10*3/uL 163 179 201 INR -- -- 1.00 Chemistry: Results from last 7 days Lab Units 02/08/23 0436 02/07/23 0810 02/06/23 1852 SODIUM mmol/L 139 136 136 POTASSIUM mmol/L 4.1 4.1 4.0 CHLORIDE mmol/L 104 102 101 CO2 mmol/L 29 28 27 BUN mg/dL 10 9 10 CREATININE mg/dL 0.65* 0.68* 0.66* GLUCOSE mg/dL 92 101* 94 MAGNESIUM mg/dL 1.8* 1.8* 1.7* CALCIUM mg/dL 9.5 9.3 9.5 PHOSPHORUS mg/dL -- -- 4.0 Results from last 7 days Lab Units 02/06/23 1852 AST U/L 18 ALT U/L 22 ALK PHOS U/L 89 BILIRUBIN TOTAL mg/dL 0.8 Test Results Pending At Discharge: Diet at the time of discharge: regular diet Nutrition Screen Activity: Other restrictions: Avoid heavy lifting, air travel, or any straining for 2 weeks Objective Blood pressure 122/82, pulse 77, temperature 37.1 ???C (98.7 ???F), temperature source Temporal, resp. rate 16, height 1.829 m (6'), weight 60.4 kg (133 lb 2.5 oz), SpO2 100 %. Refer to today's progress note. Total time for discharge - review of data, exam, discussion with providers and care-team, med-rec and orders, arranging follow up, counseling of patient and/or family and documentation was 50 minutes. Signed Janae Rincon [facility] 02/09/2023 7:11 AM [facility] Progress note 02-08-2023 Note Date & Type Note Facility 02-08-2023 Note -------- Attestation signed by Nitin Jackson MD at 02/08/2023 4:57 PM I reviewed the salient portions of the patient history. I have seen and examined the patient during rounds with the resident/fellow. I repeated the alaniz components of the exam. Agree with the noted assessment and plan. Nitin Jackson MD [facility] Pulmonary and Critical Care Medicine -------- Pulmonology Progress Patient : Jarvis Ghosh; 22 y.o. Location: [id number]- Attending: Boogie Price MD Admit Date: 02/06/2023 Hospital Day: 2 Subjective: Patient seen examined bedside. Remains stable. Chest x-ray reviewed today. No pneumothorax appreciated. Assessment: Primary spontaneous left-sided pneumothorax. This picture present on the other recurrent spontaneous pneumothorax versus residual air from the previous one Plan: Repeated chest x-ray reviewed. Pneumothorax resolved. - Advised the patient to avoid any heavy lifting, straining, air travel for 2 weeks. -Will follow-up the patient in the pulmonary clinic with repeat chest x-ray. May need pleurodesis in case of recurrent pneumothoraces. - No objection to discharge from pulmonary standpoint. - to follow up with repeated CXR in pulmonary clinic in 1 week. - Discussed with patient and his family to go to ER for any chest pain or shortness of breath Past History/Allergies?Social History: No past medical history on file. Not on File Social History Socioeconomic History Marital status: Single Spouse name: Not on file Number of children: Not on file Years of education: Not on file Highest education level: Not on file Occupational History Not on file Tobacco Use Smoking status: Never Smokeless tobacco: Never Substance and Sexual Activity Alcohol use: Not on file Drug use: Not on file Sexual activity: Not on file Other Topics Concern Not on file Social History Narrative Not on file Social Determinants of Health Financial Resource Strain: Low Risk (02/06/2023) Overall Financial Resource Strain (CARDIA) Difficulty of Paying Living Expenses: Not hard at all Food Insecurity: Unknown (02/06/2023) Hunger Vital Sign Worried About Running Out of Food in the Last Year: Never true Ran Out of Food in the Last Year: Not on file Transportation Needs: Unknown (02/06/2023) PRAPARE - Transportation Lack of Transportation (Medical): No Lack of Transportation (Non-Medical): Not on file Physical Activity: Not on file Stress: Not on file Social Connections: Not on file Intimate Partner Violence: Unknown (02/06/2023) Humiliation, Afraid, Rape, and Kick questionnaire Fear of Current or Ex-Partner: No Emotionally Abused: Not on file Physically Abused: Not on file Sexually Abused: Not on file Housing Stability: Unknown (02/06/2023) Housing Stability Vital Sign Unable to Pay for Housing in the Last Year: Not on file Number of Places Lived in the Last Year: Not on file Unstable Housing in the Last Year: No Family History: Family History Problem Relation Name Age of Onset No Known Problems Mother No Known Problems Father Outpatient Medications: Medications Prior to Admission Medication Sig Dispense Refill Last Dose ascorbic acid (Vitamin C) 500 mg/5 mL liquid Take 500 mg by mouth in the morning. 02/06/2023 cholecalciferol, vitamin D3, 25 mcg (1,000 unit) tablet,chewable Chew 250 mcg in the morning. 02/06/2023 Saccharomyces boulardii 250 mg powder in packet Take 250 mg by mouth at bedtime. 02/06/2023 Current Medications: Scheduled Meds: cetirizine, 5 mg, oral, BID Continuous Infusions: Oxygen Therapy, PRN Meds: PRN medications: acetaminophen, dyclonine, melatonin, morphine, Oxygen Therapy, Insert peripheral IV AND Saline lock IV AND sodium chloride Review of Systems: ROS Input/Output: I/O last 3 completed shifts: In: 600 (9.9 mL/kg) [P.O.:600] Out: - (0 mL/kg) Weight: 60.4 kg Vital Signs: Temperature: Temp: 37.1 ???C (98.7 ???F) TMax: Temp (24hrs), Av.2 ???C (98.9 ???F), Min:37 ???C (98.6 ???F), Max:37.4 ???C (99.3 ???F) Respirations: Resp: 14 Pulse: Heart Rate: 55 BP: BP: 123/87 BP Range: Systolic (24hrs), Av , Min:106 , Max:123 Diastolic (24hrs), Av, Min:75, Max:87 Wt Readings from Last 3 Encounters: 02/08/23 60.4 kg (133 lb 2.5 oz) Physical Examination: General: No acute distress HEENT: Normocephalic, atraumatic, EOMI, no scleral icterus or erythema Neck: Supple, trachea midline, no masses noted Cardiovascular: Regular rate and rhythm, normal S1-S2, no murmurs, no rubs, no peripheral edema Respiratory: No acute respiratory distress, clear to auscultation bilaterally, no wheezing, no rales Abdomen: Soft, nontender, nondistended, positive bowel sounds Extremities: No cyanosis, no e (more content not included)... [facility] Progress note 02-08-2023 Note Date & Type Note Facility 02-08-2023 Note Hospital Medicine Daily Progress Note - 02/08/2023 8:53 AM; Room: [facility]/3123-01 Admission: 02/06/2023 5:18 PM; Length of stay: 2 days THE HOSPITALIST TEAM PREFERS TO USE [employer] FOR COMMUNICATION 7AM-7PM. IF I DO NOT RESPOND WITHIN 15 MINUTES, PLEASE PAGE ME/CALL THROUGH THE ENROLLMENT PROCESSOR. FROM 7PM-7AM, PLEASE PAGE [phone](COVR) Code Status: Full Code Barriers to Discharge: nonreabreather Expected Discharge Date: Today Discharge Destination: home Overview Patient is seen for evaluation and management of spontaneous pneumothorax. Subjective HPI: Jarvis Ghosh is an 22 y.o. male with no known past medical history presents as a direct admission from [facility] [place] with a spontaneous pneumothorax. Per report, patient also had a pneumothorax around 2 weeks ago with chest tube placement and was DC'd home and return back to the emergency department. Patient returned to [place] again last evening with left-sided chest pain and a crackling sound in his chest. CT chest without contrast was completed showing small left pneumothorax occupying 10% of the left hemithorax with left upper pleural separation of 1.6 cm left anterior basilar pleural separation of 1.4 cm. As there is no pulmonary service at [facility], patient was transferred to [facility]. Upon arrival to [facility], repeat cxr was completed and pulmonary team was consulted. They state no chest tube placement tonight and they will repeat cxr in AM to decide. Labs are unremarkable except for a mag of 1.7. Patient is not a smoker or vaper user. Interval: Patient resting in bed on non-rebreather, parents at bedside. Patient reports some sharp bilateral chest pain, he denies shortness of breath. He denies fever, chills, nausea, or vomiting. Physical Exam Visit Vitals BP 123/87 Pulse 55 Temp 37 ???C (98.6 ???F) (Temporal) Resp 14 Intake/Output Summary (Last 24 hours) at 02/08/2023 0853 Last data filed at 02/07/2023 1800 Gross per 24 hour Intake 600 ml Output -- Net 600 ml Physical Exam Vitals and nursing note reviewed. Constitutional: Appearance: Normal appearance. Interventions: Face mask in place. HENT: Head: Normocephalic. Right Ear: External ear normal. Left Ear: External ear normal. Nose: Nose normal. Mouth/Throat: Mouth: Mucous membranes are moist. Eyes: Pupils: Pupils are equal, round, and reactive to light. Cardiovascular: Rate and Rhythm: Normal rate and regular rhythm. Pulses: Normal pulses. Heart sounds: Normal heart sounds. Pulmonary: Effort: Pulmonary effort is normal. Abdominal: General: Abdomen is flat. Palpations: Abdomen is soft. Musculoskeletal: General: Normal range of motion. Cervical back: Normal range of motion. Skin: General: Skin is warm and dry. Capillary Refill: Capillary refill takes less than 2 seconds. Neurological: General: No focal deficit present. Mental Status: He is alert and oriented to person, place, and time. Psychiatric: Mood and Affect: Mood normal. Behavior: Behavior normal. Thought Content: Thought content normal. Judgment: Judgment normal. Estimated body mass index is 18.06 kg/m??? as calculated from the following: Height as of this encounter: 1.829 m (6'). Weight as of this encounter: 60.4 kg (133 lb 2.5 oz). Active Inpatient Problems Principal Problem: Spontaneous pneumothorax Active Problems: Hypomagnesemia Autism spectrum disorder Assessment and Plan Spontaneous pneumothorax SOB CXR [facility] shows 2 cm left apical pneumothorax Pain management with IV morphine Pulmonology on consult Patient on 100% nonreabreather mask Pulmonary team to repeat chest xray later in the afternoon, if pneumothorax is stable in size or resolved no role for chest tube insertion. -patient advised any heavy lifting, straining, air travel for 2 weeks. Pulmonary to follow up with patient in pulmonary clinic with repeat chest x-ray. Slight increase in apical pneumo per repeat chest xray yesterday Today's chest xray without apical pneumo seen Pulmonary team okay for patient to discharge. Hypomagnesemia Mag 1.8 today -replace with 2GM Autism spectrum disorder Patient to remain inpatient Daily labs Vitals per protocol Replace electrolytes as needed VTE Prophylaxis: Will start AFTER PROCEDURE Scheduled Meds cetirizine, 5 mg, oral, BID Pertinent Investigations Hematology: Results from last 7 days Lab Units 02/08/23 0436 02/07/23 0810 02/06/23 1852 WBC AUTO 10*3/uL 5.59 6.52 9.89 HEMOGLOBIN g/dL 14.6 14.7 14.8 HEMATOCRIT % 43.3 42.2 42.7 MCV fL 91.9 90.0 89.9 PLATELETS AUTO 10*3/uL 163 179 201 INR -- -- 1.00 Chemistry: Results from last 7 days Lab Units 02/08/23 0436 02/07/23 0810 02/06/23 1852 SODIUM mmol/L 139 136 136 POTASSIUM mmol/L 4.1 4.1 4.0 CHLORIDE mmol/L 104 102 101 CO2 mmol/L 29 28 27 BUN mg/dL 10 9 10 CREATININE mg/dL 0.65* 0.68* 0.66* GLUCOS (more content not included)... [facility] Progress note 02-07-2023 Note Date & Type Note Facility 02-07-2023 Note Hospital Medicine Daily Progress Note - 02/07/2023 7:54 AM; Room: [address] [place] [address] Admission: 02/06/2023 5:18 PM; Length of stay: 1 days THE HOSPITALIST TEAM PREFERS TO USE [email or web address] CHAT FOR COMMUNICATION 7AM-7PM. IF I DO NOT RESPOND WITHIN 15 MINUTES, PLEASE PAGE ME/CALL THROUGH THE ENROLLMENT PROCESSOR. FROM 7PM-7AM, PLEASE PAGE [phone](COVR) Code Status: Full Code Barriers to Discharge: nonreabreather Expected Discharge Date: TBD Discharge Destination: home Overview Patient is seen for evaluation and management of spontaneous pneumothorax. Subjective HPI: Jarvis Ghosh is an 22 y.o. male with no known past medical history presents as a direct admission from [facility] [place] with a spontaneous pneumothorax. Per report, patient also had a pneumothorax around 2 weeks ago with chest tube placement and was DC'd home and return back to the emergency department. Patient returned to [place] again last evening with left-sided chest pain and a crackling sound in his chest. CT chest without contrast was completed showing small left pneumothorax occupying 10% of the left hemithorax with left upper pleural separation of 1.6 cm left anterior basilar pleural separation of 1.4 cm. As there is no pulmonary service at [facility], patient was transferred to [facility]. Upon arrival to [facility], repeat cxr was completed and pulmonary team was consulted. They state no chest tube placement tonight and they will repeat cxr in AM to decide. Labs are unremarkable except for a mag of 1.7. Patient is not a smoker or vaper user. Interval: Patient resting in bed on non-rebreather, mother is at bedside. Patient denies any sob or chest pain, he states he is breathing fine. He is without respiratory distress. He denies any sore throat. Physical Exam Visit Vitals BP 112/74 Pulse 95 Temp 36.8 ???C (98.2 ???F) (Temporal) Resp 21 No intake or output data in the 24 hours ending 02/07/23 0754 Physical Exam Vitals and nursing note reviewed. Constitutional: Appearance: Normal appearance. Interventions: Face mask in place. HENT: Head: Normocephalic. Right Ear: External ear normal. Left Ear: External ear normal. Nose: Nose normal. Mouth/Throat: Mouth: Mucous membranes are moist. Eyes: Pupils: Pupils are equal, round, and reactive to light. Cardiovascular: Rate and Rhythm: Normal rate and regular rhythm. Pulses: Normal pulses. Heart sounds: Normal heart sounds. Pulmonary: Effort: Pulmonary effort is normal. Abdominal: General: Abdomen is flat. Palpations: Abdomen is soft. Musculoskeletal: General: Normal range of motion. Cervical back: Normal range of motion. Skin: General: Skin is warm and dry. Capillary Refill: Capillary refill takes less than 2 seconds. Neurological: General: No focal deficit present. Mental Status: He is alert and oriented to person, place, and time. Psychiatric: Mood and Affect: Mood normal. Behavior: Behavior normal. Thought Content: Thought content normal. Judgment: Judgment normal. Estimated body mass index is 18.51 kg/m??? as calculated from the following: Height as of this encounter: 1.829 m (6'). Weight as of this encounter: 61.9 kg (136 lb 7.4 oz). Active Inpatient Problems Principal Problem: Spontaneous pneumothorax Active Problems: Hypomagnesemia Autism spectrum disorder Assessment and Plan Spontaneous pneumothorax SOB CXR [facility] shows 2 cm left apical pneumothorax Pain management with IV morphine Pulmonology on consult Patient on 100% nonreabreather mask Pulmonary team to repeat chest xray later in the afternoon, if pneumothorax is stable in size or resolved no role for chest tube insertion. -patient advised any heavy lifting, straining, air travel for 2 weeks. Pulmonary to follow up with patient in pulmonary clinic with repeat chest x-ray. Slight increase in apical pneumo per repeat chest xray. Hypomagnesemia Mag 1.8 today Autism spectrum disorder Patient to remain inpatient Daily labs Vitals per protocol Replace electrolytes as needed VTE Prophylaxis: Will start AFTER PROCEDURE Scheduled Meds Pertinent Investigations Hematology: Results from last 7 days Lab Units 02/06/23 1852 WBC AUTO 10*3/uL 9.89 HEMOGLOBIN g/dL 14.8 HEMATOCRIT % 42.7 MCV fL 89.9 PLATELETS AUTO 10*3/uL 201 INR 1.00 Chemistry: Results from last 7 days Lab Units 02/06/23 1852 SODIUM mmol/L 136 POTASSIUM mmol/L 4.0 CHLORIDE mmol/L 101 CO2 mmol/L 27 BUN mg/dL 10 CREATININE mg/dL 0.66* GLUCOSE mg/dL 94 MAGNESIUM mg/dL 1.7* CALCIUM mg/dL 9.5 PHOSPHORUS mg/dL 4.0 Results from last 7 days Lab Units 02/06/23 1852 AST U/L 18 ALT U/L 22 ALK PHOS U/L 89 BILIRUBIN TOTAL mg/dL 0.8 Historical Values: (Includes values prior to this admission) No results found for: PREALBUMIN, TSH, T3FREE, FREET4, CORTISOL, FEV1, NWQ8WWI, DLCO, RVSP, HDL, LDL No results found for: VITAMINB (more content not included)... [facility] Clinical Note 02-06-2023 Note Date & Type Note Facility 02-06-2023 Note Hospital Medicine History and Physical 02/06/2023 9:48 PM THE HOSPITALIST TEAM PREFERS TO USE [employer] FOR COMMUNICATION 7AM-7PM. IF I DO NOT RESPOND WITHIN 15 MINUTES, PLEASE PAGE ME/CALL THROUGH THE ENROLLMENT PROCESSOR. FROM 7PM-7AM, PLEASE PAGE [phone](COVR) Chief Complaint Direct admission from [facility] for a spontaneous pneumothorax History of Present Illness Jarvis Ghosh is an 22 y.o. male who came from [facility] with no known past medical history presents as a direct admission from [facility] [place] with a spontaneous pneumothorax. Per report, patient also had a pneumothorax around 2 weeks ago with chest tube placement and was DC'd home and return back to the emergency department. Patient returned to [place] again last evening with left-sided chest pain and a crackling sound in his chest. Ct chest without contrast was completed showing small left pneumothorax occupying 10% of the left hemithorax with left upper pleural separation of 1.6 cm left anterior basilar pleural separation of 1.4 cm. As there is no pulmonary service at [facility], patient was transferred to [facility]. Upon arrival to [facility], repeat cxr was completed and pulmonary team was consulted. They state no chest tube placement tonight and they will repeat cxr in AM to decide. Labs are unremarkable except for a mag of 1.7. Review of System and Physical Exam Temp: [36.7 ???C (98 ???F)-36.8 ???C (98.2 ???F)] 36.8 ???C (98.2 ???F) Heart Rate: [92-105] 105 Resp: [18-21] 21 BP: (110-125)/(77-80) 110/77 Physical Exam Vitals reviewed. Constitutional: Appearance: He is normal weight. HENT: Head: Normocephalic and atraumatic. Nose: Nose normal. Mouth/Throat: Mouth: Mucous membranes are moist. Pharynx: Oropharynx is clear. Eyes: Conjunctiva/sclera: Conjunctivae normal. Pupils: Pupils are equal, round, and reactive to light. Cardiovascular: Rate and Rhythm: Normal rate and regular rhythm. Pulmonary: Effort: Pulmonary effort is normal. Comments: Mildly dimished greater on the left Abdominal: General: Abdomen is flat. Bowel sounds are normal. Musculoskeletal: General: Normal range of motion. Skin: General: Skin is warm and dry. Capillary Refill: Capillary refill takes less than 2 seconds. Neurological: General: No focal deficit present. Mental Status: He is alert and oriented to person, place, and time. Mental status is at baseline. Psychiatric: Mood and Affect: Mood normal. Behavior: Behavior normal. Thought Content: Thought content normal. Judgment: Judgment normal. Review of Systems Constitutional: Negative for chills, diaphoresis, fatigue and fever. HENT: Negative for congestion. Eyes: Negative for discharge. Respiratory: Positive for cough and chest tightness. Negative for shortness of breath. Cardiovascular: Positive for chest pain. Negative for palpitations. Gastrointestinal: Negative for abdominal distention, blood in stool, constipation, diarrhea, nausea and vomiting. Genitourinary: Negative for difficulty urinating and dysuria. Musculoskeletal: Negative for arthralgias and back pain. Skin: Negative for color change, pallor, rash and wound. Neurological: Negative for dizziness, seizures, facial asymmetry, light-headedness, numbness and headaches. Psychiatric/Behavioral: Negative for agitation, behavioral problems and confusion. All other systems reviewed and are negative. Problem List Patient Active Problem List Diagnosis Date Noted Spontaneous pneumothorax 02/06/2023 Hypomagnesemia 02/06/2023 Autism spectrum disorder 02/06/2023 Assessment and Plan Jarvis Ghosh is an 22 y.o. male who came from [facility] with no known past medical history presents as a direct admission from [facility] [place] with a spontaneous pneumothorax. #Spontaneous pneumothorax #Hypomagnesemia #Autism spectrum disorder -CXR [facility] shows 2 cm left apical pneumothorax, pulmonary team with plans to repeat CXR in a.m. with possible chest tube at that time -Will continue to hold DVT prophylaxis for possible chest tube placement -Pain management as needed -Magnesium 1.7, replaced -Continue all home medications as appropriate VTE Prophylaxis: Will start AFTER PROCEDURE ----- Focus of this inpatient stay will remain on problems that need acute care setting for care. We will review available studies and will order additional labs, imaging and other studies as appropriate. As needed medicines are ordered as appropriate. VTE Prophylaxis will be ordered as appropriate. Please see above for management plan for individual hospital problems. Home medications are reviewed and will be continued as appropriate. Patient will be continued to be followed during this hospital stay by a member of [facility]. Past Medical History No past medical history on file. Past Surgical History Past Surgical History: Procedure Laterality D (more content not included)... [facility] Evaluation note Note Date & Type Note Facility Evaluation note Diagnosis Well adult exam- Primary Routine general medical examination at a health care facility Hypomagnesemia Disorders of magnesium metabolism documented in this encounter [facility] Instructions Note Date & Type Note Facility Instructions Not on filedocumented in this en counter [facility] Summary Purpose Family History No Family History Records FoundNo Family History Records FoundNo Family History Records Found Advance Directives No Advanced Directives Records FoundNo Advanced Directives Records FoundNo Advanced Directives Records Found Additional Source Comments (unrecognized sect ion and content) No Status Records FoundNo Status Records FoundNo Status Records Found INFORMATION SOURCE (unrecogn ized section and content) DATE CREATED AUTHOR 01/02/2019 [facility] DATE CREATED AUTHOR AUTHOR'S ORGANIZ ATION 05/31/2020 [facility] DATE CREATED AUTHOR AUTHOR'S ORGANIZ ATION 05/08/2023 [facility] Reason for Visit (unrecogniz ed section and content) Reason Comments Annual Exam Care Teams (unrecognized sec tion and content) Leveler Helper Relationship Specialty Start Date End Date Thai Rodriguez DO [address] [facility], [facility] [place] [address] PCP - General Family Medicine 06/11/22 FOR RECORDS PERTAINING TO PATIENTS WHO ARE OR HAVE BEEN ENROLLED IN A CHEMICAL DEPENDENCY/SUBSTANCEABUSE PROGRAM, SOME INFORMATION MAY BE OMITTED. This clinical summary was aggregated from multiple sources. Caution should be exercised in using it in the provision of clinical care. This summary normalizes information from multiple sources, and as a consequence, information in this document may materially change the coding, format and clinical context of patient data. In addition, data may be omitted in some cases. CLINICAL DECISIONS SHOULD BE BASED ON THE PRIMARY CLINICAL RECORDS. [email or web address] provides no warranty or guarantee of the accuracy or completeness of information in this document.
== END 2023-05-20 15:46 | disposition home or self-care (01) ==
LOC: RAD 15:48
PROVIDERS: PCP Family Medicine; Visit Provider Internal Medicine
DX: J93.11 Primary spontaneous pneumothorax (principal)
CPT/HCPCS: 71046

== ENCOUNTER 2023-10-04 18:32 | Emergency (ER) | payer OTHER, MEDICAID, SELFPAY ==
[2023-10-04] VITALS (20 sets, daily range): BP systolic 111–136; BP diastolic 74–87; PULSE 70–91; TEMP 36.8; O2SAT 85–100; BMI 19.0
--- NOTE | 2023-10-04 18:39 | XR_ITS ---
[place] [id number] Patient Name: JARVIS STAHL MRN: [id number] date: 2000 Sex: M Assigned Patient Location: ED.MAIN Current Patient Location: ER Accession/Order Number: [id number] Exam Date: 10/04/2023 18:58 Report Date: 10/04/2023 20:54 At the request of: RON HINOJOSA Procedure: XR chest 2V EXAMINATION: XR chest 2V, , 10/04/2023 6:58 PM EDT INDICATION: pain, h/o pneumo in past HISTORY: Ordering Provider Reason for Exam: pain, h/o pneumo in past Technologist Note: Additional: COMPARISON: None. TECHNIQUE: Chest x-ray: Two views. FINDINGS: No pneumothorax, pleural effusion or focal airspace consolidation. Heart is normal in size. Bony thorax is unremarkable. XR/XR chest 2V IMPRESSION: No acute cardiopulmonary process. Electronically authenticated by: PRISCILLA GLASER Date: 10/04/2023 20:54
--- OUTSIDE RECORDS SUMMARY | 2023-10-04 18:41 | XMS_ITS | CCD ---
Author Organization [facility] Care Team Providers Care Search Manager Name Role Phone DEYSI LOONEY Admitting Unavailable DEYSI LOONEY Attending Unavailable WNEKVÍCTOR Primary Care Unavailable DEYSI LOONEY Consulting Unavailable BRADEN COLON Consulting Unavailable CHRISTOPHER BYRD Admitting Unavailable MILLISCHRISTOPHER Attending Unavailable MILLISCHRISTOPHER Consulting Unavailable ZIEBBRADEN ROBBINS R Consulting Unavailable KIMBERLY, BOOGIE Referring Unavailable CATRINA JULIAN Referring Unavailable KIMBERLY, BOOGIE Attending Unavailable KIMBERLY, BOOGIE Admitting Unavailable PIRKL, MARIELENA Referring Unavailable KIMBERLY, BOOGIE Referring Unavailable KIMBERLY, BOOGIE Referring Unavailable KIMBERLY, BOOGIE Referring Unavailable Furlong Thai HOLDEN Primary Care Provider THAI RODRIGUEZ Attending Unavailable FURLONG, THAI G Referring Unavailable FURLONG, THAI G Primary Care Unavailable FURLONG, THAI G Referring Unavailable FURLONG, THAI G Primary Care Unavailable FURLONG, THAI G Referring Unavailable FURLONG, THAI G Primary Care Unavailable FURLONG, THAI G Referring Unavailable FURLONG, THAI G Primary Care Unavailable FURLONG, THAI G Referring Unavailable FURLONG, THAI G Primary Care Unavailable FURLONG, THAI G Referring Unavailable FURLONG, THAI G Primary Care Unavailable FURLONG, THAI G Referring Unavailable FURLONG, THAI G Primary Care Unavailable FURLONG, THAI G Referring Unavailable FURLONG, THAI G Primary Care Unavailable FURLONG, THAI G Attending Unavailable FURLONG, THAI G Referring Unavailable FURLONG, THAI G Primary Care Unavailable Allergies Allergy Classification Reported Allergen(s) Allergy Type Date of Onset Reaction(s) Facility (1 source) ALLERGIES NOT ON FILE; Translations: [ALLERGIES NOT ON FILE] Propensity to adverse reactions (disorder) [facility] Repository Medications Current Medications Medication Drug [...] Translations: [Autistic disorder] Onset: 02-06-2023 02-12-2023 Chronic Inflammatory conditions of male genital organs (1 source) Orchitis; Translations: [Orchitis] Onset: 08-01-2023 Episodic Other nutritional; endocrine; and metabolic disorders (2 sources) Hypomagnesemia; Translations: [Hypomagnesemia] Onset: 02-06-2023 05-15-2023 Chronic Superficial injury; contusion (4 sources) Contusion of right foot, initial encounter; Translations: [CONTUSION RIGHT FOOT INITIAL ENC] Onset: 12-30-2018 Episodic Unclassified (1 source) Groin Pain Onset: 08-01-2023 Unclassified (1 source) Annual Exam Onset: 05-15-2023 Past or Other Problems Problem Classification Problem Date Documented Da te Episodic/Chronic Lymphadenitis (4 sources) Localized enlarged lymph nodes; Translations: [LOCALIZED ENLARGED LYMPH NODES] Onset: 09-05-2018 Episodic Mood disorders (1 source) Mood disorders Onset: 05-15-2023 05-15-2023 Pleurisy; pneumothorax; pulmonary collapse (3 sources) Other pneumothorax; Translations: [Spontaneous pneumothorax] Onset: 02-06-2023 Episodic Residual codes; unclassified (1 source) Pain, unspecified; Translations: [Pain, unspecified] Onset: 01-17-2023 Episodic Results Test Name Value Interpretation Reference [...] and oxygenation Outcome: Progressing Flowsheets (Taken 02/08/2023 075) Achieves optimal ventilation and oxygenation: Assess for [...] appropriate resources Outcome: Progressing Flowsheets (Taken 02/08/2023 075) Discharge to home or other facility with appropriate resources: Identify barriers to discharge with patient and caregiver Arrange for needed discharge resources and transportation as appropriate Refer to discharge planning if patient needs post-hospital services based on physician order or complex needs related to functional status, cognitive ability or social support system Normal [facility] BASIC METABOLIC PANELon 01-17 Anion gap [Moles/Vol] 10 mmol/L Normal 7-20 [facility] Comment on above: Performed By: #### L [id number] #### [facility] [address] [place] [address] Calcium [Mass/Vol] 9.5 mg/dL Normal 8.6-10.3 [facility] Comment on above: Performed By: #### L [id number] #### [facility] ([facility]) [address] [place] [address] Chloride [Moles/Vol] 104 mmol/L Normal 98-107 [facility] Comment on above: Performed By: #### L [id number] #### [facility] ([facility]) [address] [place] [address] CO2 [Moles/Vol] 29 mmol/L Normal 21-31 [facility] Comment on above: Performed By: #### L [id number] #### [facility] ([facility]) [address] [place] [address] Creatinine [Mass/Vol] 0.65 mg/dL Low 0.70-1.30 [facility] Comment on above: Performed By: #### L [id number] #### [facility] ([facility]) [address] [place] [address] GLOMERULAR FILTRATION RATE ML/MIN/1.73 SQ M.PREDICTED 138.3 mL/min/1.73m*2 Normal >60.0 [facility] Comment on above: Result Comment: The [facility]???s estimated glomerular filtration rate (eGFR) will [...] individuals. Performed By: #### L [id number] #### [facility] ([facility]) [address] [place] [address] Glucose [Mass/Vol] 92 mg/dL Normal 70-100 [facility] Comment on above: Performed By: #### L [id number] #### [facility] ([facility]) [address] [place] [address] Potassium [Moles/Vol] 4.1 mmol/L Normal 3.5-5.1 [facility] Comment on above: Performed By: #### L [id number] #### [facility] ([facility]) [address] [place] [address] Sodium [Moles/Vol] 139 mmol/L Normal 136-145 [facility] Comment on above: Performed By: #### L [id number] #### [facility] ([facility]) [address] [place] [address] Urea nitrogen [Mass/Vol] 10 mg/dL Normal 7-25 [facility] Comment on above: Performed By: #### L [id number] #### [facility] ([facility]) [address] [place] [address] UREA NITROGEN/CREATININE (MASS RATIO) IN SER/PLAS 15.4 Normal [facility] Comment on above: Performed By: #### L [id number] #### [facility] ([facility]) [address] [place] [address] CBC WITH AUTO DIFFERENTIALon 02-08-2023 Basophils (Bld) [#/Vol] 0.04 10*3/uL Normal 0.00-0.20 [facility] Comment on above: Performed By: #### L [id number] #### [facility] ([facility]) [address] [place] [address] Basophils/100 WBC (Bld) 0.7 % Normal 0.0-1.0 [facility] Comment on above: Performed By: #### L [id number] #### [facility] ([facility]) [address] [place] [address] Eosinophils (Bld) [#/Vol] 0.69 10*3/uL High 0.00-0.50 [facility] Comment on above: Performed By: #### L [id number] #### [facility] ([facility]) [address] [place] [address] Eosinophils/100 WBC (Bld) 12.3 % High 0.0-6.0 [facility] Comment on above: Performed By: #### L [id number] #### [facility] ([facility]) [address] [place] [address] Erythrocyte distribution width (RBC) [Ratio] 12.5 % Normal 11.5-15.0 [facility] Comment on above: Performed By: #### L [id number] #### [facility] ([facility]) [address] [place] [address] ERYTHROCYTE MEAN CORPUSCULAR HEMOGLOBIN CONCENTRATION (G/DL) BY AUTOMATED 33.7 g/dL Normal 32.0-35.0 [facility] Comment on above: Performed By: #### L [id number] #### [facility] ([facility]) [address] [place] [address] Hematocrit (Bld) [Volume fraction] 43.3 % Normal 39.0-55.0 [facility] Comment on above: Performed By: #### L [id number] #### [facility] ([facility]) [address] [place] [address] Hemoglobin (Bld) [Mass/Vol] 14.6 g/dL Normal 13.0-17.0 [facility] Comment on above: Performed By: #### L [id number] #### [facility] ([facility]) [address] [place] [address] Immature granulocytes (Bld) [#/Vol] 0.01 10*3/uL Normal 0.00-0.20 [facility] Comment on above: Performed By: #### L [id number] #### [facility] ([facility]) [address] [place] [address] Immature granulocytes/100 WBC (Bld) 0.2 % Normal 0.0-1.0 [facility] Comment on above: Performed By: #### L [id number] #### [facility] ([facility]) [address] [place] [address] Lymphocytes (Bld) [#/Vol] 1.90 10*3/uL Normal 1.20-4.00 [facility] Comment on above: Performed By: #### L [id number] #### [facility] ([facility]) [address] [place] [address] Lymphocytes/100 WBC (Bld) 34.0 % Normal 20.0-45.0 [facility] Comment on above: Performed By: #### L [id number] #### [facility] ([facility]) [address] [place] [address] MCH (RBC) [Entitic mass] 31.0 pg Normal 27.0-33.0 [facility] Comment on above: Performed By: #### L [id number] #### [facility] ([facility]) [address] [place] [address] MCV (RBC) [Entitic vol] 91.9 fL Normal 82.0-98.0 [facility] Comment on above: Performed By: #### L [id number] #### [facility] ([facility]) [address] [place] [address] Monocytes (Bld) [#/Vol] 1.00 10*3/uL Normal 0.10-1.00 [facility] Comment on above: Performed By: #### L [id number] #### [facility] ([facility]) [address] [place] [address] Monocytes/100 WBC (Bld) 17.9 % High 5.0-12.0 [facility] Comment on above: Performed By: #### L [id number] #### [facility] ([facility]) [address] [place] [address] Neutrophils (Bld) [#/Vol] 1.95 10*3/uL Normal 1.60-7.60 [facility] Comment on above: Performed By: #### L [id number] #### [facility] ([facility]) [address] [place] [address] Neutrophils/100 WBC (Bld) 34.9 % Low 40.0-72.0 [facility] Comment on above: Performed By: #### L [id number] #### [facility] ([facility]) [address] [place] [address] NRBC (PER 100 WBCS) BY AUTOMATED COUNT 0.0 % Normal 0 [facility] Comment on above: Performed By: #### L [id number] #### [facility] ([facility]) [address] [place] [address] PLATELETS (10*3/UL) IN BLOOD AUTOMATED COUNT 163 10*3/uL Normal 150-400 [facility] Comment on above: Performed By: #### L [id number] #### [facility] ([facility]) [address] [place] [address] RBC (Bld) [#/Vol] 4.71 10*6/uL Normal 4.20-5.70 [facility] Comment on above: Performed By: #### L [id number] #### [facility] ([facility]) [address] [place] [address] WBC (Bld) [#/Vol] 5.59 10*3/uL Normal 4.00-10.60 [facility] Comment on above: Performed By: #### L [id number] #### [facility] ([facility]) [address] [place] [address] MAGNESIUMon 02-08-2023 Magnesium [Mass/Vol] 1.8 mg/dL Low 1.9-2.7 [facility] Comment on above: Performed By: #### L [id number] #### [facility] ([facility]) [address] [place] [address] TROPONIN Ion 02-08-2023 Troponin I.cardiac [Mass/Vol] 0.03 ng/mL Normal 0.00-0.04 [facility] Comment on above: Performed By: #### L [id number] #### [facility] ([facility]) [address] [place] [address] 30on 02-07-2023 30 The patient is Moderately [...] and behaviors that affect risk of falls [place] fall precautions as indicated by assessment Educate patient/family on patient safety, including physical limitations Instruct patient to call for assistance with activity based on assessment Modify environment to reduce risk of injury Consider OT/PT consult to assist with strengthening/mobility Problem: Discharge Planning Goal: Discharge to home or other facility with appropriate resources Outcome: Progressing Flowsheets (Taken 02/07/20231925) Discharge to home or other facility with [...] and prevent overall improvement and discharge Normal [facility] 30 The patient is Moderately Stable [...] to address these barriers include N/A. Normal [facility] BASIC METABOLIC PANELon 11-2 Anion gap [Moles/Vol] 10 mmol/L Normal 7-20 [facility] Comment on above: Performed By: #### L [id number] #### [facility] ([facility]) [address] [place] [address] Calcium [Mass/Vol] 9.3 mg/dL Normal 8.6-10.3 [facility] Comment on above: Performed By: #### L [id number] #### [facility] ([facility]) [address] [place] [address] Chloride [Moles/Vol] 102 mmol/L Normal 98-107 [facility] Comment on above: Performed By: #### L [id number] #### [facility] ([facility]) [address] [place] [address] CO2 [Moles/Vol] 28 mmol/L Normal 21-31 [facility] Comment on above: Performed By: #### L [id number] #### [facility] ([facility]) [address] [place] [address] Creatinine [Mass/Vol] 0.68 mg/dL Low 0.70-1.30 [facility] Comment on above: Performed By: #### L [id number] #### [facility] ([facility]) [address] [place] [address] GLOMERULAR FILTRATION RATE ML/MIN/1.73 SQ M.PREDICTED 136.5 mL/min/1.73m*2 Normal >60.0 [facility] Comment on above: Result Comment: The [facility]???s estimated glomerular filtration rate (eGFR) will [...] individuals. Performed By: #### L [id number] #### [facility] ([facility]) [address] [place] [address] Glucose [Mass/Vol] 101 mg/dL High 70-100 [facility] Comment on above: Performed By: #### L [id number] #### [facility] ([facility]) [address] [place] [address] Potassium [Moles/Vol] 4.1 mmol/L Normal 3.5-5.1 [facility] Comment on above: Performed By: #### L [id number] #### [facility] ([facility]) [address] [place] [address] Sodium [Moles/Vol] 136 mmol/L Normal 136-145 [facility] Comment on above: Performed By: #### L [id number] #### [facility] ([facility]) [address] [place] [address] Urea nitrogen [Mass/Vol] 9 mg/dL Normal 7-25 [facility] Comment on above: Performed By: #### L [id number] #### [facility] ([facility]) [address] [place] [address] UREA NITROGEN/CREATININE (MASS RATIO) IN SER/PLAS 13.2 Normal [facility] Comment on above: Performed By: #### L [id number] #### [facility] ([facility]) [address] [place] [address] CBC WITH AUTO DIFFERENTIALon 02-07-2023 Basophils (Bld) [#/Vol] 0.03 10*3/uL Normal 0.00-0.20 [facility] Comment on above: Performed By: #### L [id number] #### [facility] ([facility]) [address] [place] [address] Basophils/100 WBC (Bld) 0.5 % Normal 0.0-1.0 [facility] Comment on above: Performed By: #### L [id number] #### [facility] ([facility]) [address] [place] [address] Eosinophils (Bld) [#/Vol] 0.34 10*3/uL Normal 0.00-0.50 [facility] Comment on above: Performed By: #### L [id number] #### [facility] ([facility]) [address] [place] [address] Eosinophils/100 WBC (Bld) 5.2 % Normal 0.0-6.0 [facility] Comment on above: Performed By: #### L [id number] #### [facility] ([facility]) [address] [place] [address] Erythrocyte distribution width (RBC) [Ratio] 12.5 % Normal 11.5-15.0 [facility] Comment on above: Performed By: #### L [id number] #### [facility] ([facility]) [address] [place] [address] ERYTHROCYTE MEAN CORPUSCULAR HEMOGLOBIN CONCENTRATION (G/DL) BY AUTOMATED 34.8 g/dL Normal 32.0-35.0 [facility] Comment on above: Performed By: #### L [id number] #### [facility] ([facility]) [address] [place] [address] Hematocrit (Bld) [Volume fraction] 42.2 % Normal 39.0-55.0 [facility] Comment on above: Performed By: #### L [id number] #### [facility] ([facility]) [address] [place] [address] Hemoglobin (Bld) [Mass/Vol] 14.7 g/dL Normal 13.0-17.0 [facility] Comment on above: Performed By: #### L [id number] #### [facility] ([facility]) [address] [place] [address] Immature granulocytes (Bld) [#/Vol] 0.02 10*3/uL Normal 0.00-0.20 [facility] Comment on above: Performed By: #### L [id number] #### [facility] ([facility]) [address] [place] [address] Immature granulocytes/100 WBC (Bld) 0.3 % Normal 0.0-1.0 [facility] Comment on above: Performed By: #### L [id number] #### [facility] ([facility]) [address] [place] [address] Lymphocytes (Bld) [#/Vol] 0.84 10*3/uL Low 1.20-4.00 [facility] Comment on above: Performed By: #### L [id number] #### [facility] ([facility]) [address] [place] [address] Lymphocytes/100 WBC (Bld) 12.9 % Low 20.0-45.0 [facility] Comment on above: Performed By: #### L [id number] #### [facility] ([facility]) [address] [place] [address] MCH (RBC) [Entitic mass] 31.3 pg Normal 27.0-33.0 [facility] Comment on above: Performed By: #### L [id number] #### [facility] ([facility]) [address] [place] [address] MCV (RBC) [Entitic vol] 90.0 fL Normal 82.0-98.0 [facility] Comment on above: Performed By: #### L [id number] #### [facility] ([facility]) [address] [place] [address] Monocytes (Bld) [#/Vol] 0.86 10*3/uL Normal 0.10-1.00 [facility] Comment on above: Performed By: #### L [id number] #### [facility] ([facility]) [address] [place] [address] Monocytes/100 WBC (Bld) 13.2 % High 5.0-12.0 [facility] Comment on above: Performed By: #### L [id number] #### [facility] ([facility]) [address] [place] [address] Neutrophils (Bld) [#/Vol] 4.43 10*3/uL Normal 1.60-7.60 [facility] Comment on above: Performed By: #### L [id number] #### [facility] ([facility]) [address] [place] [address] Neutrophils/100 WBC (Bld) 67.9 % Normal 40.0-72.0 [facility] Comment on above: Performed By: #### L [id number] #### [facility] ([facility]) [address] [place] [address] NRBC (PER 100 WBCS) BY AUTOMATED COUNT 0.0 % Normal 0 [facility] Comment on above: Performed By: #### L [id number] #### [facility] ([facility]) [address] [place] [address] PLATELETS (10*3/UL) IN BLOOD AUTOMATED COUNT 179 10*3/uL Normal 150-400 [facility] Comment on above: Performed By: #### L [id number] #### [facility] ([facility]) [address] [place] [address] RBC (Bld) [#/Vol] 4.69 10*6/uL Normal 4.20-5.70 [facility] Comment on above: Performed By: #### L [id number] #### [facility] ([facility]) [address] [place] [address] WBC (Bld) [#/Vol] 6.52 10*3/uL Normal 4.00-10.60 [facility] Comment on above: Performed By: #### L [id number] #### [facility] ([facility]) [address] [place] [address] CONSULTon 02-07-2023 CONSULT --- Attestation signed by Nitin Jackson MD at 02/07/2023 11:20 PM I reviewed the salient portions of the patient history. I have seen and examined the patient during rounds with the resident/fellow. I repeated the alaniz components of the exam. Agree with the noted assessment and plan. Nitin Jackson MD [facility] Pulmonary and Critical Care Medicine Pulmonology [...] cough. No prior history of pneumothorax. At [facility] patient had chest tube placed first one [...] sounds in his chest he went to [facility] again chest x-ray showed small apical pneumothorax [facility] which [facility]. No tobacco smoking or vaping. During my [...] 650 mg, oral, q6h PRN, Marielena Pirkl, WET CHEMISTRY ANALYST, 650 mg at 02/07/23 0319 dyclonine throat lozenge 2 mg, 1 lozenge, Mouth/Throat, q2h PRN, Marielena Pirkl, WET CHEMISTRY ANALYST, 2 mg at 02/07/23 0106 melatonin tablet 5 mg, 5 mg, oral, Nightly PRN, Marielena Pirkl, WET CHEMISTRY ANALYST, 5 mg at 02/07/23 0107 morphine injection 2 mg, 2 mg, intravenous, q4h PRN, Marielena Escobar NP Insert peripheral IV, , , Once AND Saline lock IV, , , Once AND sodium chloride flush 10 mL, 10 mL, intravenous, q8h PRN, Marielena Escobar NP Current Medications: Scheduled Meds: Continuous Infusions: PRN Meds: PRN me (more content not included)... Normal [facility] MAGNESIUMon 02-07-2023 Magnesium [Mass/Vol] 1.8 mg/dL Low 1.9-2.7 [facility] Comment on above: Performed By: #### L [id number] #### [facility] ([facility] [address] [place] [address] NURSNOTEon 02-07-2023 NURSNOTE Patient notified RN of new chest pain rating it a 5/10. Per patient this pain does not move or change when breathing in/out. Patients lung sounds remain unchanged from earlier and no major changes in vitals. [employer] notified Marielena Escobar and pulm team. Per pulm RN to order repeat chest xray now and pulm coming to bedside. Orders placed. Normal [facility] 30on 02-06-2023 30 The patient is Moderately Stable - Low risk of patient condition declining or worsening The patient's goals for the shift include comfort and rest The clinical goals for the shift include safety Over the shift, the patient did make progress toward his goals. Normal [facility] 30 The patient is Moderately Unstable - Medium risk of patient condition declining or worsening The patient's goals for the shift include comfort The clinical goals for the shift include safety Normal [facility] CBC WITH AUTO DIFFERENTIALon 02-06-2023 Basophils (Bld) [#/Vol] 0.02 10*3/uL Normal 0.00-0.20 [facility] Comment on above: Performed By: #### L [id number] #### [facility] ([facility]) [address] [place] [address] Basophils/100 WBC (Bld) 0.2 % Normal 0.0-1.0 [facility] Comment on above: Performed By: #### L [id number] #### [facility] ([facility]) [address] [place] [address] Eosinophils (Bld) [#/Vol] 0.48 10*3/uL Normal 0.00-0.50 [facility] Comment on above: Performed By: #### L [id number] #### [facility] ([facility]) [address] [place] [address] Eosinophils/100 WBC (Bld) 4.9 % Normal 0.0-6.0 [facility] Comment on above: Performed By: #### L [id number] #### [facility] ([facility]) [address] [place] [address] Erythrocyte distribution width (RBC) [Ratio] 12.3 % Normal 11.5-15.0 [facility] Comment on above: Performed By: #### L [id number] #### [facility] ([facility]) [address] [place] [address] ERYTHROCYTE MEAN CORPUSCULAR HEMOGLOBIN CONCENTRATION (G/DL) BY AUTOMATED 34.7 g/dL Normal 32.0-35.0 [facility] Comment on above: Performed By: #### L [id number] #### [facility] ([facility]) [address] [place] [address] Hematocrit (Bld) [Volume fraction] 42.7 % Normal 39.0-55.0 [facility] Comment on above: Performed By: #### L [id number] #### [facility] ([facility]) [address] [place] [address] Hemoglobin (Bld) [Mass/Vol] 14.8 g/dL Normal 13.0-17.0 [facility] Comment on above: Performed By: #### L [id number] #### [facility] ([facility]) [address] [place] [address] Immature granulocytes (Bld) [#/Vol] 0.02 10*3/uL Normal 0.00-0.20 [facility] Comment on above: Performed By: #### L [id number] #### [facility] ([facility]) [address] [place] [address] Immature granulocytes/100 WBC (Bld) 0.2 % Normal 0.0-1.0 [facility] Comment on above: Performed By: #### L [id number] #### [facility] ([facility]) [address] [place] [address] Lymphocytes (Bld) [#/Vol] 0.84 10*3/uL Low 1.20-4.00 [facility] Comment on above: Performed By: #### L [id number] #### [facility] ([facility]) [address] [place] [address] Lymphocytes/100 WBC (Bld) 8.5 % Low 20.0-45.0 [facility] Comment on above: Performed By: #### L [id number] #### [facility] ([facility]) [address] [place] [address] MCH (RBC) [Entitic mass] 31.2 pg Normal 27.0-33.0 [facility] Comment on above: Performed By: #### L [id number] #### [facility] ([facility]) [address] [place] [address] MCV (RBC) [Entitic vol] 89.9 fL Normal 82.0-98.0 [facility] Comment on above: Performed By: #### L [id number] #### [facility] ([facility]) [address] [place] [address] Monocytes (Bld) [#/Vol] 0.80 10*3/uL Normal 0.10-1.00 [facility] Comment on above: Performed By: #### L [id number] #### [facility] ([facility]) [address] [place] [address] Monocytes/100 WBC (Bld) 8.1 % Normal 5.0-12.0 [facility] Comment on above: Performed By: #### L [id number] #### [facility] ([facility]) [address] [place] [address] Neutrophils (Bld) [#/Vol] 7.73 10*3/uL High 1.60-7.60 [facility] Comment on above: Performed By: #### L [id number] #### [facility] ([facility]) [address] [place] [address] Neutrophils/100 WBC (Bld) 78.1 % High 40.0-72.0 [facility] Comment on above: Performed By: #### L [id number] #### [facility] ([facility]) [address] [place] [address] NRBC (PER 100 WBCS) BY AUTOMATED COUNT 0.0 % Normal 0 [facility] Comment on above: Performed By: #### L [id number] #### [facility] ([facility]) [address] [place] [address] PLATELETS (10*3/UL) IN BLOOD AUTOMATED COUNT 201 10*3/uL Normal 150-400 [facility] Comment on above: Performed By: #### L [id number] #### [facility] ([facility]) [address] [place] [address] RBC (Bld) [#/Vol] 4.75 10*6/uL Normal 4.20-5.70 [facility] Comment on above: Performed By: #### L [id number] #### [facility] ([facility]) [address] [place] [address] WBC (Bld) [#/Vol] 9.89 10*3/uL Normal 4.00-10.60 [facility] Comment on above: Performed By: #### L [id number] #### [facility] ([facility]) [address] [place] [address] COMPREHENSIVE METABOLIC PANE Jose 02-06-2023 Albumin [Mass/Vol] 4.8 g/dL Normal 3.5-5.7 [facility] Comment on above: Performed By: #### L [id number] #### [facility] ([facility] [address] [place] [address] ALP [Catalytic activity/Vol] 89 U/L Normal 34-104 [facility] Comment on above: Performed By: #### L [id number] #### [facility] ([facility]) [address] [place] [address] ALT [Catalytic activity/Vol] 22 U/L Normal 7-52 [facility] Comment on above: Performed By: #### L [id number] #### [facility] ([facility]) [address] [place] [address] Anion gap [Moles/Vol] 12 mmol/L Normal 7-20 [facility] Comment on above: Performed By: #### L [id number] #### [facility] ([facility]) [address] [place] [address] AST [Catalytic activity/Vol] 18 U/L Normal 13-39 [facility] Comment on above: Performed By: #### L [id number] #### [facility] ([facility]) [address] [place] [address] Bilirubin [Mass/Vol] 0.8 mg/dL Normal 0.3-1.0 [facility] Comment on above: Performed By: #### L [id number] #### [facility] ([facility]) [address] [place] [address] Calcium [Mass/Vol] 9.5 mg/dL Normal 8.6-10.3 [facility] Comment on above: Performed By: #### L [id number] #### [facility] ([facility]) [address] [place] [address] Chloride [Moles/Vol] 101 mmol/L Normal 98-107 [facility] Comment on above: Performed By: #### L [id number] #### [facility] ([facility]) [address] [place] [address] CO2 [Moles/Vol] 27 mmol/L Normal 21-31 [facility] Comment on above: Performed By: #### L [id number] #### [facility] ([facility]) [address] [place] [address] Creatinine [Mass/Vol] 0.66 mg/dL Low 0.70-1.30 [facility] Comment on above: Performed By: #### L [id number] #### [facility] ([facility]) [address] [place] [address] GLOMERULAR FILTRATION RATE ML/MIN/1.73 SQ M.PREDICTED 137.7 mL/min/1.73m*2 Normal >60.0 [facility] Comment on above: Result Comment: The [facility]???s estimated glomerular filtration rate (eGFR) will [...] individuals. Performed By: #### L [id number] #### [facility] ([facility]) [address] [place] [address] Glucose [Mass/Vol] 94 mg/dL Normal 70-100 [facility] Comment on above: Performed By: #### L [id number] #### [facility] ([facility]) [address] [place] [address] Potassium [Moles/Vol] 4.0 mmol/L Normal 3.5-5.1 [facility] Comment on above: Performed By: #### L [id number] #### [facility] ([facility]) [address] [place] [address] Protein [Mass/Vol] 7.6 g/dL Normal 6.0-8.3 [facility] Comment on above: Performed By: #### L [id number] #### [facility] ([facility]) [address] [place] [address] Sodium [Moles/Vol] 136 mmol/L Normal 136-145 [facility] Comment on above: Performed By: #### L [id number] #### [facility] ([facility]) [address] [place] [address] Urea nitrogen [Mass/Vol] 10 mg/dL Normal 7-25 [facility] Comment on above: Performed By: #### L [id number] #### [facility] ([facility]) [address] [place] [address] UREA NITROGEN/CREATININE (MASS RATIO) IN SER/PLAS 15.2 Normal [facility] Comment on above: Performed By: #### L [id number] #### [facility] ([facility]) [address] [place] [address] LACTIC ACID, PLASMAon 2022 LACTATE (MMOL/L) IN SER/PLAS 1.1 mmol/L Normal 0.5-2.2 [facility] Comment on above: Performed By: #### L [id number] #### [facility] ([facility]) [address] [place] [address] MAGNESIUMon 02-06-2023 Magnesium [Mass/Vol] 1.7 mg/dL Low 1.9-2.7 [facility] Comment on above: Performed By: #### L [id number] #### [facility] ([facility]) [address] [place] [address] PHOSPHORUSon 02-06-2023 Magnesium [Mass/Vol] 4.0 mg/dL Normal 2.5-5.0 [facility] Comment on above: Performed By: #### L [id number] #### [facility] ([facility]) [address] [place] [address] PROTIME-INRon 02-06-2023 INR IN PPP BY COAGULATION ASSAY 1.00 Normal 0.90-1.10 [facility] Comment on above: Result Comment: [facility] WARFARIN THERAPY CONDITION [...] 1995;108:231S-246S. Performed By: #### L [id number] #### [facility] ([facility]) [address] [place] [address] PROTHROMBIN TIME (PT) IN PPP BY COAGULATION ASSAY 13.2 Seconds Normal 12.3-14.8 [facility] Comment on above: Performed By: #### L [id number] #### [facility] ([facility]) [address] [place] [address] Auth for Release of Medical Recordson 05-30-2020 Auth for Release of Medical Records [id number] D:127 Normal [facility] XR FOOT RT MIN 3 VIEWSon XR FOOT RT MIN 3 VIEWS Patient: JARVIS GHOSH Exam Date: 12/30/2018 : 2000 Gender:M Ordering : DR CHRISTOPHER BYRD M.D. Admission #: [id number] Family : Order #: [id number] CLICK HERE TO VIEW EXAM RADIOLOGY REPORT [...] M.D. on 12/30/2018 at 11:09 Approved by: Braden Colon M.D. on 12/30/2018 at 11:11 Normal [facility] US ST HEAD WITH NECKon 09-05 ST HEAD WITH NECK Patient: JARVIS GHOSH Exam Date: 09/05/2018 : 2000 Gender:M Ordering : DR DEYSI LOONEY M.D. Admission #: [id number] Family : Order #: [id number] CLICK HERE TO VIEW EXAM PROCEDURE: ULTRASOUND [...] Colon M.D. on 09/05/2018 at 19:29 Normal [facility] Vital Signs Date Time Vital Sign Value Performing Clinician Facility 05-15-2023 08:32-0500 Body height 189.2 cm [facility] 05-15-2023 08:32-0500 Body mass index (BMI) [Ratio] 17.36 kg/m2 [employer] DO [facility] 05-15-2023 08:32-0500 Body temperature 98.49 [degF] [employer] DO Work Phone: [facility] 05-15-2023 08:32-0500 Body weight 62.14 kg [employer] DO Work Phone: [facility] 05-15-2023 08:32-0500 Diastolic blood pressure 60 mm[Hg] Thai Rodriguez DO Work Phone: [employer] 05-15-2023 08:32-0500 Heart rate 83 /min Thai Rodriguez DO Work Phone: [employer] 05-15-2023 08:32-0500 SaO2% (BldA) [Mass fraction] 97 % Thai Rodriguez [facility] 05-15-2023 08:32-0500 Systolic blood pressure 108 mm[Hg] Thai Rodriguez DO Work Phone: [employer] Encounters Encounter Date Encounter Type Care Provider Facility Start: 08-01-[address] [facility] Start: 05-15-2023 End: 05-15-2023 ambulatory [facility] Start: 05-15-2023 End: 05-15-2023 Patient encounter status Thai Rodriguez [facility] Work [facility]: Start: 05-15-2023 End: 05-15-2023 Periodic preventive med est patient 18-39 yrs Thai Rodriguez DO Work Phone: [facility] Internal [facility] - Family Medicine Comment on above: Well adult exam (Funmi velasco Dx); Hypomagnesemia Start: 02-08-2023 Evaluation and management of inpatient BOOGIE [facility] Start: 02-08-2023 Evaluation and management of inpatient BOOGIE [facility] Start: 02-07-2023 Evaluation and management of inpatient BOOGIE [facility] Start: 02-07-2023 Evaluation and management of inpatient BOOGIE [facility] Start: 02-06-2023 Evaluation and management of inpatient MARIELENA WANGXAVI [facility] Start: 02-06-2023 End: 02-08-2023 Evaluation and management of inpatient CATRINA JULIAN [facility] Start: 01-25-2023 ambulatory THAI [facility] Start: 01-17-2023 ambulatory RALEIGH [facility] Start: 12-30-2018 End: 12-31-2018 Patient encounter procedure CHRISTOPHER BYRD Facility:[facility] Start: 09-05-2018 End: 09-06-2018 Patient encounter procedure DEYSI LOONEY Facility:[facility] Procedures Date Procedure Procedure Detail Performing Clinician Start: 05-15-2023 Adult depression screening assessment [facility] Work Phone: Plan of Treatment Date Care Activity Detail Author Start: 01-20-2025 DTaP,Tdap and Td Vaccines (7 - Td or Tdap) DTaP,Tdap and Td Vaccines (7 - Td or Tdap) [facility] Start: 05-15-2024 Adult BMI Screening Adult BMI Screen ing [facility] Start: 05-15-2024 Depression Screening Depression Scre ening [facility] Start: 05-15-2024 Tobacco Screening Tobacco Screening [facility] Start: 06-16-2023 Influenza vaccination Influenza Vacc ine [facility] Comment on above: Postponed from 11/16 (Patient Refused) Start: 2020 Adult BMI Follow Up Plan Adult BMI Follow Up Plan [facility] Immunizations Immunization Date Immunization Notes Care Provider Rolanda dennis 01-20-2015 hepatitis A vaccine, pediatric/adolescent dosage, 2 dose schedule Thai Irwin [employer] Work Phone: [facility] 01-20-2015 meningococcal polysaccharide (groups A, C, Y and W-135) diphtheria toxoid conjugate vaccine (MCV4P) [facility] Work Phone: [facility] 01-20-2015 tetanus toxoid, redu leti diphtheria toxoid, and acellular pertussis vaccine, adsorbed [facility] DO Work Phone: [facility] 02-27-2010 influenza, seasonal, injectable, preservative free Thai Irwin DO Work Phone: [facility] 02-27-2010 influenza virus vacc ine, unspecified formulation Thai Furlong DO Work Phone: [facility] 01-25-2010 influenza, seasonal, injectable, preservative free Thai Furlong DO Work Phone: [facility] 02-11-2009 influenza, seasonal, injectable, preservative free Thai Furlong DO Work Phone: [facility] 01-21-2008 influenza, seasonal, injectable, preservative free Thai Furlong DO Work Phone: [facility] 05-14-2007 diphtheria, tetanus toxoids and acellular pertussis vaccine Thai Furlong DO Work Phone: [facility] 05-14-2007 measles, mumps and rubella virus vaccine Thai Furlong DO Work Phone: [facility] 05-14-2007 poliovirus vaccine, inactivated Thai Furlong DO Work Phone: [facility] 05-14-2007 varicella virus vaccine Denn is Furlong DO Work Phone: [facility] 01-10-2006 influenza, seasonal, injectable Thai Furlong DO Work Phone: [facility] 12-27-2004 influenza virus vacc ine, whole virus Thai Furlong DO Work Phone: [facility] 05-27-2003 diphtheria, tetanus toxoids and acellular pertussis vaccine Thai Furlong DO Work Phone: [facility] 05-27-2003 haemophilus influenz ae type b conjugate and Hepatitis B vaccine Thai Furlong DO Work Phone: [facility] 04-26-2003 measles, mumps and rubella virus vaccine Thai Furlong DO Work Phone: [facility] 04-26-2003 varicella virus vaccine Denn is Furlong DO Work Phone: [facility] 2002 diphtheria, tetanus toxoids and acellular pertussis vaccine Thaikeaton Samayoalong DO Work Phone: [facility] 2002 haemophilus influenz ae type b vaccine, PRP-T conjugate Thaikeaton Rodriguez DO Work Phone: [facility] 2002 poliovirus vaccine, inactivated Thaikeaton Samayoalong DO Work Phone: [facility] 2002 diphtheria, tetanus toxoids and acellular pertussis vaccine Thai Furlong DO Work Phone: [facility] 2002 haemophilus influenz ae type b conjugate and Hepatitis B vaccine Thaikeaton Samayoalong DO Work Phone: [facility] 2002 poliovirus vaccine, inactivated Thaikeaton Rodriguez DO Work Phone: [facility] 2002 diphtheria, tetanus toxoids and acellular pertussis vaccine, 5 pertussis antigens Thaikeaton Rodriguez DO Work Phone: [facility] 2002 haemophilus influenz ae type b conjugate and Hepatitis B vaccine Thaikeaton Samayoalong DO Work Phone: [facility] 2002 poliovirus vaccine, inactivated Thai Rodriguez DO Work Phone: [facility] Payers Date Payer Category Payer Medicaid [id number] 2022 Private Health Insurance [facility] [employer] [id number] 2022-Present [phone] [address] [address] [place] [address] [id number] 2022 Unknown [id number] 2002 Unknown [id number] [id number]. 1286 2002 Unknown [id number] 2.16.840.1.983260.3.579.2. 1286 2002 Unknown [id number] 2.16.840.1.742859.3.579.2. 128 2002 Unknown [id number] 2.16.840.1.215497.3.579.2. 1285 2002 Unknown [id number] 2.16.840.1.990312.3.579.2. 128 2002 Unknown [id number] 2.16.840.1.033567.3.579.2. 1285 2002 Unknown [id number] 2.16.840.1.376267.3.579.2. [facility] hospital2002 Unknown [id number] 2.16.840.1.060304.3.579.2. 1285 2002 Unknown [id number] 2.16.840.1.845114.3.579.2. Critical access hospital2002 Unknown [id number] 2.16.840.1.759315.3.579.2. 1285 2002 Unknown [id number] 2.16.840.1.144169.3.579.2. 128 2002 Unknown [id number] 2.16.840.1.280481.3.579.2. 1285 2002 Unknown [id number] 2.16.840.1.982806.3.579.2. 1286 1972 Unknown [id number] 2.16.840.1.325127.3.579.2. 593 1972 Unknown [id number] 2.16.840.1.766551.3.579.2. 593 1959 Unknown [id number] Social History Date Type Detail Facility Start: 06-12-2022 Tobacco smoking stat [facility] Never smoked tobacco [facility] Start: 06-12-2022 Tobacco use and exposure Smoke less tobacco non-user [facility] Start: 05-15-2023 Alcohol intake Lifetime non-d kimberly (finding) [facility] Start: 06-12-2022 End: 05-15-2023 History of Social function [facility] Start: 06-12-2022 End: 05-15-2023 [facility] Utilities [facility] Has the adjust, or [employer] threatened to shut off services in your home in past 12Mo No [facility] Do you belong to any clubs or organizations such as spiritism groups, unions, fraternal or athletic groups, or school groups? Yes [facility] Are you now , , , , never or living with a partner? Never [facility] How often to you hav e a drink containing alcohol? Never [facility] How many standard dr inks containing alcohol do you have on a typical day? Patient does not drink [facility] Do you feel stress - tense, restless, nervous, or anxious, or unable to sleep at night because your mind is troubled all the time - these days [OSQ] Not at all [facility] Start: 2002 Sex Assigned At Not on file [facility] History of Present illness Narrative 05-15-2023 [...] re-expanded with chest tube. He sees the land development manager next week for a follow-up visit Do [...] in 1 year documented in this encounter [facility] Clinical Note 02-08-2023 Note Date & Type Note Facility 02-08-2023 Note Hospital Medicine Discharge Summary Final Discharge Diagnosis: Spontaneous pneumothorax Admission Diagnosis: Spontaneous pneumothorax [J93.83] Spontaneous pneumothorax-resolved on chest xray imaging 02/08 SOB Hypomagnesemia Autism spectrum disorder Hospital course: Jarvis Ghosh is an 22 y.o. male who came from [facility] with no known past medical history presents as a direct admission from [facility] with a spontaneous pneumothorax. Per report, patient also had a pneumothorax around 2 weeks ago with chest tube placement and was DC'd home and return back to the emergency department. Patient returned to [place] again last evening with left-sided chest pain and a crackling sound in his chest. Ct chest without contrast was completed showing small left pneumothorax occupying 10% of the left hemithorax with left upper pleural separation of 1.6 cm left anterior basilar pleural separation of 1.4 cm. As there is no pulmonary service at [facility], [facility], repeat cxr was completed and pulmonary team [...] shortness of breath. Dear Dr. Michael MD, Jarvis is advised to follow up with you within 1-2 weeks. Follow-up with: Pulmonary Scheduled appointments: No future appointments. Your medication list CONTINUE taking these medications Instructions Last Dose Given Next Dose Due ascorbic acid 500 mg/5 mL liquid Commonly known as: Vitamin C cholecalciferol (vitamin D3) 25 mcg (1,000 unit) tablet,chewable Saccharomyces nimeshi 250 mg powder in packet Jarvis has [...] documentation was 50 minutes. Signed [facility]e [facility]con [facility] 02/09/2023 7:11 AM [facility] Progress note 02-08-2023 Note Date & Type Note Facility 02-08-2023 Note -------- Attestation signed by Nitin Jackson MD at 02/08/2023 4:57 PM I reviewed the salient portions of the patient history. I have seen and examined the patient during rounds with the resident/fellow. I repeated the alaniz components of the exam. Agree with the noted assessment and plan. Nitin Jackson MD [facility] Pulmonary and Critical Care Medicine -------- Pulmonology Progress Patient : Jarvis Ghosh; 22 y.o. Location: [id number]/3123-01 Attending: Boogie Price MD Admit [...] cyanosis, no e (more content not included)... [facility] Progress note 02-08-2023 Note Date & Type Note Facility 02-08-2023 Note Hospital Medicine Daily Progress Note - 02/08/2023 8:53 AM; Room: [address] [place] [address] Admission: 02/06/2023 5:18 PM; Length of stay: 2 days THE HOSPITALIST TEAM PREFERS TO USE [employer] FOR COMMUNICATION 7AM-7PM. IF I DO NOT RESPOND WITHIN 15 MINUTES, PLEASE PAGE ME/CALL THROUGH THE [employer]IC[employer] CAPTAIN. FROM 7PM-7AM, PLEASE PAGE [phone](COVR) Code Status: Full Code Barriers to Discharge: nonreabreather Expected Discharge Date: Today Discharge Destination: home Overview Patient is seen for evaluation and management of spontaneous pneumothorax. Subjective HPI: Jarvsi Ghosh is an 22 y.o. male with no known past medical history presents as a direct admission from [facility] with a spontaneous pneumothorax. Per report, patient also had a pneumothorax around 2 weeks ago with chest tube placement and was DC'd home and return back to the emergency department. Patient returned to [place] again last evening with left-sided chest pain and a crackling sound in his chest. CT chest without contrast was completed showing small left pneumothorax occupying 10% of the left hemithorax with left upper pleural separation of 1.6 cm left anterior basilar pleural separation of 1.4 cm. As there is no pulmonary service at [facility], [facility]. Upon arrival to [facility], repeat cxr was completed and pulmonary team [...] Assessment and Plan Spontaneous pneumothorax SOB CXR [facility] shows 2 cm left apical pneumothorax [...] 0.68* 0.66* GLUCOS (more content not included)... [facility] Progress note 02-07-2023 Note Date & Type Note Facility 02-07-2023 Note Hospital Medicine Daily Progress Note - 02/07/2023 7:54 AM; Room: [facility]- Admission: 02/06/2023 5:18 PM; Length of stay: 1 days THE HOSPITALIST TEAM PREFERS TO USE [employer] CHAT FOR COMMUNICATION 7AM-7PM. IF I DO NOT RESPOND WITHIN 15 MINUTES, PLEASE PAGE ME/CALL THROUGH THE [facility] [facility]. FROM 7PM-7AM, PLEASE PAGE [phone](COVR) Code Status: Full Code Barriers to Discharge: nonreabreather Expected Discharge Date: TBD Discharge Destination: home Overview Patient is seen for evaluation and management of spontaneous pneumothorax. Subjective HPI: Jarvis Ghosh is an 22 y.o. male with no known past medical history presents as a direct admission from [facility] with a spontaneous pneumothorax. Per report, patient also had a pneumothorax around 2 weeks ago with chest tube placement and was DC'd home and return back to the emergency department. Patient returned to [place] again last evening with left-sided chest pain and a crackling sound in his chest. CT chest without contrast was completed showing small left pneumothorax occupying 10% of the left hemithorax with left upper pleural separation of 1.6 cm left anterior basilar pleural separation of 1.4 cm. As there is no pulmonary service at [facility], patient was [facility]. Upon arrival to [facility], repeat cxr was completed and pulmonary team [...] Assessment and Plan Spontaneous pneumothorax SOB CXR [facility] shows 2 cm left apical pneumothorax [...] for: PREALBUMIN, TSH, T3FREE, FREET4, CORTISOL, FEV1, WNF0WCM, DLCO, RVSP, HDL, LDL No results found for: VITAMINB (more content not included)... [facility] Clinical Note 02-06-2023 Note Date & Type Note Facility 02-06-2023 Note Hospital Medicine History and Physical 02/06/2023 9:48 PM THE HOSPITALIST TEAM PREFERS TO USE [employer] CHAT FOR COMMUNICATION 7AM-7PM. IF I DO NOT RESPOND WITHIN 15 MINUTES, PLEASE PAGE ME/CALL THROUGH THE [employer] [facility]. FROM 7PM-7AM, PLEASE PAGE [phone](COVR) Chief Complaint Direct admission from [facility] for a spontaneous pneumothorax History of Present Illness Jarvis Ghosh is an 22 y.o. male who came from [facility] with no known past medical history presents as a direct admission from [facility] with a spontaneous pneumothorax. Per report, patient also had a pneumothorax around 2 weeks ago with chest tube placement and was DC'd home and return back to the emergency department. Patient returned to [place] again last evening with left-sided chest pain and a crackling sound in his chest. Ct chest without contrast was completed showing small left pneumothorax occupying 10% of the left hemithorax with left upper pleural separation of 1.6 cm left anterior basilar pleural separation of 1.4 cm. As there is no pulmonary service at [facility], patient was transferred [facility]. Upon arrival [facility], repeat cxr was completed and pulmonary team [...] an 22 y.o. male who came from [facility] with no known past medical history presents as a direct admission from [facility] with a spontaneous pneumothorax. #Spontaneous pneumothorax #Hypomagnesemia #Autism spectrum disorder -CXR [facility] shows 2 cm left apical pneumothorax, [...] this hospital stay by a member of [facility]. Past Medical History No past medical history on file. Past Surgical History Past Surgical History: Procedure Laterality D (more content not included)... [facility] Evaluation note Note Date & Type [...] Records FoundNo Status Records FoundNo Status Records FoundNo Status Records Found INFORMATION SOURCE (unrecogn ized section and content) DATE CREATED AUTHOR 01/02/2019 [facility] DATE CREATED AUTHOR AUTHOR'S ORGANIZ ATION 05/31/2020 [facility] DATE CREATED AUTHOR AUTHOR'S ORGANIZ ATION 05/08/2023 [facility] DATE CREATED AUTHOR AUTHOR'S ORGANIZ ATION 08/04/2023 [facility] Reason for Visit (unrecogniz ed section and content) Reason Comments Annual Exam Care Teams (unrecognized sec tion and content) Search Manager Relationship Specialty Start Date End Date MichaelThai DO Warren [address] [facility] [address] PCP - General Family Medicine 06/11/22 FOR [...] BE BASED ON THE PRIMARY CLINICAL RECORDS. [employer] [facility]. provides no warranty or guarantee of the accuracy or completeness of information in this document.
--- NOTE | 2023-10-04 18:42 | ECG_ITS ---
The [facility] Test Date: 2023-10-04 Pat Name: JARVIS STAHL Department: Room: - Gender: Male [employer]per: : 2000 Requested By: DEAN CHOWDHURY Order Number: [id number] Reading MD: TALITA SUH Measurements Intervals [place] Rate: 91 P: 90 GA: 144 QRS: 93 QRSD: 92 T: 73 QT: 356 QTc: 405 Interpretive Statements 1100 Sinus rhythm 7102 Moderate right axis deviation 9110 normal ECG Compared to ECG 02/06/2023 00:52:21 Right-axis deviation now present Sinus arrhythmia no longer present Electronically Signed On 10-07-2023 7:31:33 EDT by TALITA SUH
--- NOTE | 2023-10-04 19:00 | ED.GENADUL1 ---
Documented by User: Usha Arreguin 10/04/23 20:07 HPI HPI - General Adult General Chief complaint: Chest Pain Stated complaint: chest pain Time Seen by Provider: 10/04/23 18:34 Source: family Mode of arrival: walk-in History of Present Illness HPI narrative: 23-year-old male who presents here with a chief complaint shortness of breath difficulty taking in a deep breath. He has a history of pneumothorax. He has pain to the mid sternal region consistent with his pneumothorax in the past. He is not hypoxic. Not tachycardic. Shows no signs of respiratory distress. Lung sounds are clear and equal throughout. He denies any injury or trauma. Symptoms began just prior to arrival. He had a pneumothorax last December,. He was seen here and transferred to [facility] with chest tubes. Related Data Home Medications ?Medication ?Instructions ?Recorded ?Confirmed Lactobacillus acidophilus 10 100 mmu cells PO DAILY 10/04/23 10/04/23 billion cell capsule (Probacap) ascorbic acid (vitamin C) 1,000 mg 1,000 mg PO DAILY 10/04/23 10/04/23 tablet,extended release (C Complex) calcium phosphate,dibasic 77 1 tab PO DAILY 10/04/23 10/04/23 mg-vitamin D3 400 unit tablet Allergies Allergy/AdvReac Type Severity Reaction Status Date / Time latex AdvReac Rash Verified 02/06/23 00:47 Opioid HPI Opioid Management Most Recent Opioid Data: Last Pain Scale 4 10/04/23 19:10 Review of Systems ROS Narrative All Systems are negative except as noted/marked.All systems reviewed and otherwise negative [facility] Medical History (Updated 10/04/23 @ 22:17 by Jonas Knott MD) Autism spectrum disorder ?F84.0 - Autistic disorder (ICD-10) History of autism ?Z86.59 - Personal history of other mental and behavioral disorders (ICD-10) Pneumothorax, left ?J93.9 - Pneumothorax, unspecified (ICD-10) Family History Grandfather Family history of cancer Social History Smoking status: Never smoker Non-prescribed substance use: denies use Exam Narrative Exam Narrative: All Systems are negative except as noted/marked.All systems reviewed and otherwise negative Nurses note and vital signs reviewed and patient is not hypoxic. General: The patient appears well and in no apparent distress. Patient is resting comfortably on cart. Skin: Warm, dry, no pallor noted. There is no rash noted. Head: Normocephalic, atraumatic Eye: Normal conjunctiva, no drainage, EOMI. PERRL Ears, Nose, Mouth, and Throat: oral mucosa is moist. Nares patent. Mouth without vesicles. Ear canals patent. Tm's without Erythema Cardiovascular: Regular Rate and Rhythm Respiratory: Patient is in no distress, no accessory muscle use, lungs are clear to auscultation, no wheezing, rales or rhonchi Back: non-tender, no CVA tenderness bilaterally to percussion. Musculoskeletal: The patient has no evidence of calf tenderness, no pitting edema, symmetrical pulses noted bilaterally Neurological: A&O x4, normal speech Psychiatric: Cooperative Constitutional Vital Signs, click to edit/add: Last Vital Signs Temp 98.2 F 10/04/23 18:43 Pulse 83 10/04/23 21:40 Resp 15 10/04/23 21:10 BP 111/77 10/04/23 21:30 Pulse Ox 98 10/04/23 21:40 O2 Del Method Room Air 10/04/23 19:10 Course Vital Signs Vital signs: Vital Signs Pulse Rate 85 10/04/23 18:39 Respiratory Rate 18 10/04/23 18:39 Blood Pressure 134/85 10/04/23 18:39 Pulse Oximetry 98 10/04/23 18:39 Oxygen Delivery Method Room Air 10/04/23 18:39 Temperature 98.2 F 10/04/23 18:43 Pulse Rate 83 10/04/23 21:40 Respiratory Rate 10/04/23 21:10 Blood Pressure 111/77 10/04/23 21:30 Pulse Oximetry 98 10/04/23 21:40 Oxygen Delivery Method Room Air 10/04/23 19:10 Medical Decision Making Differential Diagnosis Differential Diagnosis: chest pain, pneumo Medical Records Medical records reviewed: Yes I reviewed the patient's medical records Medical records narrative: Well continues to have normal vital signs he is not hypoxic. Initial chest x-ray and CT scan of the chest appear negative. We are currently waiting on official results. Patient was medicated with 15 mg of Toradol IV and some of his discomfort has subsided. Patient made aware of waiting time for the x-ray and CT scan. Imaging Data Chest x-ray: Radiologist's impression: ITS Impressions Chest X-Ray 10/04/23 18:39 IMPRESSION: No acute cardiopulmonary process. Electronically authenticated by: [employer] Date: 10/04/2023 20:[address] 10/04/23 19:34 IMPRESSION: No acute abnormality. There is no evidence for pneumothorax. Electronically authenticated by: [employer] Date: 10/04/2023 22:08 CT scan - chest: Radiologist's impression: ITS Impressions Chest X-Ray 10/04/23 18:39 IMPRESSION: No acute cardiopulmonary process. Electronically authenticated by: [employer] Date: 10/04/2023 20:[address] 10/04/23 19:34 IMPRESSION: No acute abnormality. There is no evidence for pneumothorax. Electronically authenticated by: [employer] Date: 10/04/2023 22:08 ECG Data Attestation: I personally reviewed and interpreted this ECG as follows: Interpretation: 1842 rhythm with a rate of 91 bpm GA interval 144 ms cures duration 92 ms, no ST elevation or depression, no STEMI Discharge Plan Discharge Stand Alone Forms: Portal Instructions Chief Complaint: Chest Pain Clinical Impression: Atypical chest pain Patient Disposition: Home, Self-Care Prescriptions / Home Meds: No Action C Complex 1,000 mg tablet extended release 1,000 mg PO DAILY calcium phos,dibas-vitamin D3 77-400 mg-unit tablet 1 tab PO DAILY Probacap 10 billion cell capsule 100 mmu cells PO DAILY Print Language: Mozambican Instructions: Noncardiac Chest Pain (ED) Referrals: DEAN CHOWDHURY [Primary Care Provider] - 1 week Documented by User: Jonas Knott MD 10/04/23 22:18 HPI HPI - General Adult General Chief complaint: Chest Pain Stated complaint: chest pain Time Seen by Provider: 10/04/23 18:34 Related Data Home Medications ?Medication ?Instructions ?Recorded ?Confirmed Lactobacillus acidophilus 10 100 mmu cells PO DAILY 10/04/23 10/04/23 billion cell capsule (Probacap) ascorbic acid (vitamin C) 1,000 mg 1,000 mg PO DAILY 10/04/23 10/04/23 tablet,extended release (C Complex) calcium phosphate,dibasic 77 1 tab PO DAILY 10/04/23 10/04/23 mg-vitamin D3 400 unit tablet Allergies Allergy/AdvReac Type Severity Reaction Status Date / Time latex AdvReac Rash Verified 02/06/23 00:47 Opioid HPI Opioid Management Most Recent Opioid Data: Last Pain Scale 4 10/04/23 19:10 PFSH PFS Medical History (Updated 10/04/23 @ 22:17 by Jonas Knott MD) Autism spectrum disorder ?F84.0 - Autistic disorder (ICD-10) History of autism ?Z86.59 - Personal history of other mental and behavioral disorders (ICD-10) Pneumothorax, left ?J93.9 - Pneumothorax, unspecified (ICD-10) Family History Grandfather Family history of cancer Social History Smoking status: Never smoker Non-prescribed substance use: denies use Exam Constitutional Vital Signs, click to edit/add: Last Vital Signs Temp 98.2 F 10/04/23 18:43 Pulse 83 10/04/23 21:40 Resp 15 10/04/23 21:10 BP 111/77 10/04/23 21:30 Pulse Ox 98 10/04/23 21:40 O2 Del Method Room Air 10/04/23 19:10 Course Vital Signs Vital signs: Vital Signs Pulse Rate 85 10/04/23 18:39 Respiratory Rate 18 10/04/23 18:39 Blood Pressure 134/85 10/04/23 18:39 Pulse Oximetry 98 10/04/23 18:39 Oxygen Delivery Method Room Air 10/04/23 18:39 Temperature 98.2 F 10/04/23 18:43 Pulse Rate 83 10/04/23 21:40 Respiratory Rate 15 10/04/23 21:10 Blood Pressure 111/77 10/04/23 21:30 Pulse Oximetry 98 10/04/23 21:40 Oxygen Delivery Method Room Air 10/04/23 19:10 Medical Decision Making Medical Records Medical records narrative: Well continues to have normal vital signs he is not hypoxic. Initial chest x-ray and CT scan of the chest appear negative. We are currently waiting on official results. Patient was medicated with 15 mg of Toradol IV and some of his discomfort has subsided. Patient made aware of waiting time for the x-ray and CT scan. care transferred at end of PA shift. Diagnostic studies pending and returned neg. No evidence of pneumothorax. Patient and family informed and patient discharged home to follow up with his doctor Imaging Data Chest x-ray: Radiologist's impression: ITS Impressions Chest X-Ray 10/04/23 18:39 IMPRESSION: No acute cardiopulmonary process. Electronically authenticated by: PRISCILLA GLASER Date: 10/04/2023 20:[address] 10/04/23 19:34 IMPRESSION: No acute abnormality. There is no evidence for pneumothorax. Electronically authenticated by: PRISCILLA [employer] FallWANG Date: 10/04/2023 22:08 CT scan - chest: Radiologist's impression: ITS Impressions Chest X-Ray 10/04/23 18:39 IMPRESSION: No acute cardiopulmonary process. Electronically authenticated by: [employer]KIMMY Date: 10/04/2023 20:[address] 10/04/23 19:34 IMPRESSION: No acute abnormality. There is no evidence for pneumothorax. Electronically authenticated by: [employer] Holding LimitedWANG Date: 10/04/2023 22:08 Discharge Plan Discharge Stand Alone Forms: Portal Instructions Chief Complaint: Chest Pain Clinical Impression: Atypical chest pain Patient Disposition: Home, Self-Care Prescriptions / Home Meds: No Action C Complex 1,000 mg tablet extended release 1,000 mg PO DAILY calcium phos,dibas-vitamin D3 77-400 mg-unit tablet 1 tab PO DAILY Probacap 10 billion cell capsule 100 mmu cells PO DAILY Print Language: Mozambican Instructions: Noncardiac Chest Pain (ED) Referrals: DEAN CHOWDHURY [Primary Care Provider] - 1 week
[2023-10-04] MEDS: KETOROLAC TROMETHAMINE 30 MG/ML VIAL 15 MG IVP (19:31)
--- NOTE | 2023-10-04 19:34 | CT_ITS ---
The [address] [address] Patient Name: JARVIS STAHL MRN: [id number] date: 2000 Sex: M Assigned Patient Location: ER Current Patient Location: ER Accession/Order Number: [id number] Exam Date: 10/04/2023 19:50 Report Date: 10/04/2023 22:08 At the request of: RON HINOJOSA Procedure: CT chest wo con EXAMINATION: CT chest wo con, 10/04/2023 7:50 PM EDT HISTORY: history of pnuemo COMPARISON: CT chest wo con Study Date: 02/06/2023 TECHNIQUE: CT scan of the chest was performed without IV contrast. CT dose reduction technique was used, including Automated Exposure Control. FINDINGS: There are size is normal. There is no evidence for pericardial effusion. There is no evidence for coronary arterial calcification. The thoracic aorta is normal in course and caliber. There is no evidence for thoracic aortic aneurysm. There is no evidence for pleural effusion or pneumothorax. The lungs appear clear. No focal consolidation is seen. No significant enlarged hilar, mediastinal or axillary adenopathy is seen. The visual chest wall appears unremarkable. No acute abnormality seen in the visualized upper abdomen. No destructive osseous lesion is seen. CT/CT chest wo con IMPRESSION: No acute abnormality. There is no evidence for pneumothorax. Electronically authenticated by: PRISCILLA GLASER Date: 10/04/2023 22:08
== END 2023-10-04 22:27 | disposition home or self-care (01) ==
PROVIDERS: Emergency Provider Internal Medicine; PCP Family Medicine
DX: R07.89 Other chest pain (principal)
CPT/HCPCS: 71046; 71250; 93005; 96374; 99285; J1885

== ENCOUNTER 2024-07-09 18:35 | Outpatient (OUT) | payer OTHER, MEDICAID, SELFPAY ==
--- NOTE | 2024-07-09 18:44 | US_ITS ---
The [address] [address] Patient Name: JARVIS STAHL MRN: [id number] date: 2000 Sex: M Assigned Patient Location: Current Patient Location: Accession/Order Number: [id number] Exam Date: 07/09/2024 22:34 Report Date: 07/10/2024 09:30 At the request of: DEAN CHOWDHURY Procedure: US scrotum Scrotal ultrasound Reason for exam: Left testicular pain. Comparison: none Technique: Grayscale, color Doppler and spectral Doppler images of the scrotal contents were obtained. Findings: The right testicle measures 3.9 x 2.1 x 2.7 cm. No evidence of testicular mass or microlithiasis. Normal arterial and venous Doppler waveforms. Epididymal cyst measuring 5 mm. Right-sided varicocele. Left testicle measures 4.0 x 2.1 x 2.7 cm. No evidence of testicular mass or microlithiasis. Normal arterial and venous Doppler waveforms. Epididymis appears heterogeneous in echotexture suspicious for underlying epididymitis. Left-sided varicocele. Small hydrocele. Likely scrotal jean. US/US scrotum Impression: Heterogenous-appearing left epididymis suspicious for underlying epididymitis. No evidence of testicular mass or torsion. Bilateral varicoceles. Small left-sided hydrocele. Impression dictated by: Del Tolliver Jr., D.O. 07/10/2024 9:30 AM Dictation Location: [facility] Electronically authenticated by: [id number] Y Date: 07/10/2024 09:30
== END 2024-07-09 18:36 | disposition home or self-care (01) ==
LOC: US 18:36
PROVIDERS: PCP Family Medicine; Visit Provider Family Medicine
DX: N50.812 Left testicular pain (principal); I86.1 Scrotal varices; N43.3 Hydrocele, unspecified
CPT/HCPCS: 76870